=== PATIENT | female | born 1945 | race Caucasian/White ===

== ENCOUNTER 2021-02-07 13:08 | Outpatient (CLI) | payer MEDICARE, SELFPAY ==
--- NOTE | ~2021-02-07 | XR_ITS ---
EXAMINATION: XR lumbar spine 2-3V DATE: 02/07/2021 13:28 INDICATION: Low back pain. TECHNIQUE: 3 views of lumbar spine were obtained. COMPARISON: Lumbar spine radiographs 09/12/2015, CT abdomen and pelvis 04/05/2013 FINDINGS: There is 4 degrees dextrocurvature of lumbar spine. Vertebral body heights and intervertebr al disc heights are normal. There are endplate osteophytes at multiple levels. There is multilevel fa cet joint osteoarthritis, severe at some levels. IMPRESSION: 1. Mild lumbar spondylosis. Reviewed, dictated and finalized at location A. IMPRESSION: 1. Mild lumbar spondylosis.
== END 2021-02-07 13:09 | disposition home or self-care (01) ==
LOC: ANHIMG 13:11
PROVIDERS: PCP Internal Medicine; Visit Provider Internal Medicine
DX: M54.5 Low back pain (principal); G89.29 Other chronic pain; M47.816 Spondylosis without myelopathy or radiculopathy, lumbar region
CPT/HCPCS: 72100

== ENCOUNTER 2021-02-22 12:55 | Outpatient (CLI) | payer MEDICARE, SELFPAY ==
--- NOTE | ~2021-02-22 | MR_ITS ---
EXAMINATION: MR lumbar spine wo con EXAM DATE: 02/22/2021 14:03 INDICATION: M54.5 - Low back pain . TECHNIQUE: Multi-sequential, multiplanar MR images of the lumbar spine were obtained without contrast . Sagittal T1, T2, T2 fat saturation images. Axial T2 weighted images. There is no prior study for comparison. FINDINGS: The vertebral bodies are aligned in the AP dimension. Vertebral body and disc heights are w ell-maintained. Lumbar disc desiccation. There are no suspicious marrow signal abnormalities. Paraspi nal soft tissue is unremarkable. Level by level evaluation: T12-L1: Disc does not extend beyond the endplate margin. Facet arthropathy: Mild. Neural foraminal stenosis: No stenosis. Central canal stenosis: No stenosis. L1-L2: Disc does not extend beyond the endplate margin. Facet arthropathy: Mild. Neural foraminal stenosis: No stenosis. Central canal stenosis: No stenosis. L2-L3: Disc does not extend beyond the endplate margin. Facet arthropathy: Mild. Neural foraminal stenosis: No stenosis. Central canal stenosis: No stenosis. L3-L4: There is a mild diffuse disc bulge. Facet arthropathy: Moderate bilateral. Neural foraminal stenosis: Mild bilateral. Central canal stenosis: Mild. L4-L5: There is a mild diffuse disc bulge. Facet arthropathy: Moderate. Neural foraminal stenosis: Mild left, minimal right. Central canal stenosis: Minimal. L5-S1: There is a mild diffuse disc bulge with superimposed tiny right central protrusion Facet arthropathy: Mild to moderate. Neural foraminal stenosis: Mild to moderate left, mild right. Central canal stenosis: Mild. IMPRESSION: 1. Moderate facet arthropathy L3-4 and L4-5. Reviewed, dictated and finalized at location B.
== END 2021-02-22 12:56 | disposition home or self-care (01) ==
LOC: ANHIMG 12:56
PROVIDERS: PCP Internal Medicine; Visit Provider Internal Medicine
DX: M47.815 Spondylosis without myelopathy or radiculopathy, thoracolumbar region (principal); M48.05 Spinal stenosis, thoracolumbar region; M47.817 Spondylosis without myelopathy or radiculopathy, lumbosacral region; M48.07 Spinal stenosis, lumbosacral region
CPT/HCPCS: 72148

== ENCOUNTER 2021-10-28 00:36 | Day surgery (SDC) | payer MEDICARE, SELFPAY ==
[2021-10-16 13:51] VITALS: BMI 27.3
--- NOTE | 2021-10-28 12:52 | PM.HPGS ---
History of Present Illness History of Present Illness Consent: Risks, benefits, and alternatives have been discussed and questions answered. Patient agrees to proceed with procedure. Chief complaint: hx of colon polyps Narrative: Dee Gibson is a 75 year old female here for screening colonoscopy, last one 2015, mother had colon cancer Review of Systems Constitutional: Constitutional: Denies headache(s) and Denies weakness Eyes: Eyes: Denies blurry vision ENT: Reports Normal hearing present, Denies headache(s) and Denies neck pain Cardiovascular: Cardiovascular: Denies chest pain and Denies dyspnea Respiratory: Respiratory: Denies dyspnea Gastrointestinal: Gastrointestinal: Reports no additional gastrointestinal complaints Genitourinary: Genitourinary: Denies dysuria Musculoskeletal: Musculoskeletal: Denies neck pain Integumentary/Breasts: Skin/Breast: Denies dry skin Neurologic: Reports Normal hearing present, Denies headache(s) and Denies weakness Psychiatric: Psychiatric: Denies anxiety Endocrine: Endocrine: Denies change in body appearance Hematologic/Lymphatic: Hematologic/Lymphatic: Denies easy bleeding Allergic/Immunologic: Allergic/Immunologic: Denies urticaria PMFSH Past Medical History Medical History Screening for breast cancer Family History Family History Sibling Family history of respiratory disorder Father Family history of lung cancer Family history of emphysema Family history of coronary artery disease Mother Family history of lung cancer Other Family history of heart disease in male family member before age 55 Family history of lung disease Family history of malignant neoplasm Social History Social History Smoking status: Never smoker Second hand tobacco smoke exposure: Yes Alcohol intake: never Alcohol use details: once every 3-4 years Substance use: never Substance use type: does not use Living arrangements: with family Spiritual care concerns: No Meds Home Medications and Allergies Home Medications Medication Instructions Recorded Confirmed Type insulin lispro 100 unit/mL 1 sliding scale dose SUB-Q 10/13/19 10/16/21 History subcutaneous solution USEASDIRECTD omeprazole 20 mg capsule,delayed 20 mg PO .COMPLEX 10/13/19 10/16/21 History release Lactobacills gasseri-Bifidobac 1 cap PO DAILY cap 07/26/20 10/16/21 History bifidum,longum 1.5 billion cell capsule famotidine 20 mg tablet 20 mg PO BID tablet 07/26/20 10/16/21 History metoclopramide HCl 10 mg tablet 10 mg PO .COMPLEX PRN #270 tablet 01/29/21 10/16/21 Rx cholecalciferol (vitamin D3) 50 100 mcg PO DAILY #90 tablet 01/31/21 10/16/21 Rx mcg (2,000 unit) tablet Allergies Allergy/AdvReac Type Severity Reaction Status Date / Time vancomycin Allergy Unknown Hypertensio Verified 10/16/21 13:47 n Exam Const: General: comfortable and no acute distress HENMT: General nose exam: Normal nares present Eyes: General: appearance normal, both eyes and all related structures Neck: Neck: no JVD Resp: Auscultation: clear to auscultation bilaterally Cardio: Rate: regular rate Rhythm: regular rhythm GI: Inspection: non-distended GI Palp: Yes Soft to palpation Skin: General skin exam: normal color Neuro: General: gait normal Speech: normal speech Extrem: General: normal to inspection Psych: Mental Status: mental status grossly normal Assessment and Plan Assessment and plan (1) Screening for colon cancer: Code(s): Z12.11 - Encounter for screening for malignant neoplasm of colon Status: Acute Assessment and Plan: colonoscopy
[2021-10-28 12:59] VITALS: BP 87/32; PULSE 73; RESP 20; TEMP 36.4; O2SAT 98
[2021-10-28] MEDS: LACTATED RINGERS 1,000 ML 150 ML IV CONT (13:08)
--- NOTE | 2021-10-28 13:11 | P.PNAN_ITS ---
Anes - Initial Pre Proc Eval Procedure: Operation Date: 10/28/21 14:00 Proposed Procedures p Screening Colonoscopy - Eleazar Chambers MD Date/Time: 10/28/21 13:11 Surgeon: Eleazar Chambers MD Pre Op Diagnosis: hx of colon polyps Patient Data Age: 75 Gender: F Height: 1.6 m Weight: 70.3 kg Last Vital Signs Temp 97.5 F L 10/28/21 12:59 Pulse 73 10/28/21 12:59 Resp 20 10/28/21 12:59 BP 87/32 L 10/28/21 12:59 Pulse Ox 98 10/28/21 12:59 Allergies Allergy/AdvReac Type Severity Reaction Status Date / Time vancomycin Allergy Unknown Hypertensio Verified 10/28/21 12:56 n Home Medications Medication Instructions Recorded Confirmed Type insulin lispro 100 unit/mL 1 sliding scale dose SUB-Q 10/13/19 10/28/21 History subcutaneous solution USEASDIRECTD omeprazole 20 mg capsule,delayed 20 mg PO .COMPLEX 10/13/19 10/28/21 History release Lactobacills gasseri-Bifidobac 1 cap PO DAILY cap 07/26/20 10/28/21 History bifidum,longum 1.5 billion cell capsule famotidine 20 mg tablet 20 mg PO BID tablet 07/26/20 10/28/21 History metoclopramide HCl 10 mg tablet 10 mg PO .COMPLEX PRN #270 tablet 01/29/21 10/28/21 Rx cholecalciferol (vitamin D3) 50 100 mcg PO DAILY #90 tablet 01/31/21 10/28/21 Rx mcg (2,000 unit) tablet Patient hx anesthesia problems: none Family hx anesthesia problems: none Results Review: All pre-operative results and documents have been reviewed as part of the pre-operative evaluation. [facility] Past Medical History Medical History Screening for breast cancer Family History Family History Sibling Family history of respiratory disorder Father Family history of lung cancer Family history of emphysema Family history of coronary artery disease Mother Family history of lung cancer Other Family history of heart disease in male family member before age 55 Family history of lung disease Family history of malignant neoplasm Social History Social History Smoking status: Never smoker Second hand tobacco smoke exposure: Yes Alcohol intake: never Alcohol use details: once every 3-4 years Substance use: never Substance use type: does not use Living arrangements: with family Spiritual care concerns: No Anes - Eval Final PreProcedure Day of Procedure 10/28/21 13:11 Patient weight: normal Heart: regular rate and rhythm Lungs: clear to auscultation Airway: Mallampati scale class II Neurological: alert and oriented Last oral intake: >/= 8 hours ASA classification: III Emergent: no Anesthetic plan: proceed Anesthesia type and monitoring: general GIVS and standard monitoring Results Review: All pre-operative results and documents have been reviewed as part of the pre-operative evaluation. Informed Consent: The patient's anesthetic plan and its attendant risks and benefits were discussed with the patient/family/POA. Questions were solicited and answers provided to the satisfaction of the patient/family/POA.
[2021-10-28 13:41] VITALS: BP 120/97; PULSE 66; RESP 20; O2SAT 97
[2021-10-28 13:51] VITALS: BP 112/41; PULSE 64; RESP 18; O2SAT 98
[2021-10-28 14:01] VITALS: BP 120/40; PULSE 64; RESP 20; O2SAT 98
--- NOTE | 2021-10-28 14:21 | SUR.PHASEII ---
PT HAS IMPLANTED GLUCOMETER, READING 267 AT THIS TIME. NO FINGER STICK COMPLETED.
== END 2021-10-28 14:24 | disposition home or self-care (01) ==
PROVIDERS: PCP Internal Medicine; Visit Provider Internal Medicine Gastroenterology
PROC: 0DJD8ZZ Inspection of Lower Intestinal Tract, Via Natural or Artificial Opening Endoscopic (ICD-10-PCS; CPT 45378; principal; 2021-10-28 14:00)
DX: Z12.11 Encounter for screening for malignant neoplasm of colon (principal); D12.2 Benign neoplasm of ascending colon; D12.3 Benign neoplasm of transverse colon; Z79.4 Long term (current) use of insulin
CPT/HCPCS: 45385; 88305; J2704; J7120

== ENCOUNTER 2022-01-21 15:00 | Outpatient (CLI) | payer MEDICARE, SELFPAY ==
--- NOTE | ~2022-01-21 | US_ITS ---
EXAMINATION: US soft tissue pelvic DATE: 01/21/2022 15:30 INDICATION: TECHNIQUE: Grayscale and Doppler ultrasound images of the pelvic soft tissues were obtained. COMPARISON: None. FINDINGS: Heterogeneous, somewhat triangular-shaped predominantly hypoechoic subcutaneous lesion in t he area of concern (left labia) with irregular margins, measuring 0.8 x 1.1 x 1.3 cm. There is mild s urrounding peripheral flow. IMPRESSION: 1. Hypoechoic subcutaneous lesion in the left labia, may reflect phlegmon or abscess in the appropri ate clinical context. Reviewed, dictated and finalized at location K. IMPRESSION: 1. Hypoechoic subcutaneous lesion in the left labia, may reflect phlegmon or a bscess in the appropriate clinical context.
== END 2022-01-21 15:01 | disposition home or self-care (01) ==
PROVIDERS: PCP Internal Medicine; Visit Provider Obstetrics & Gynecology
DX: N76.4 Abscess of vulva (principal)
CPT/HCPCS: 76857

== ENCOUNTER 2022-02-24 15:51 | Inpatient (IN) | payer MEDICARE, SELFPAY ==
--- NOTE | ~2022-02-24 | US_ITS ---
EXAMINATION: US carotid duplex BI DATE: 02/25/2022 09:52 INDICATION: Syncope. TECHNIQUE: Grayscale, color Doppler, and pulsed Doppler images of the cervical carotid arteries were obtained. The degree of vessel stenosis is placed in one of the following categories: normal, <50%, 5 0-69%, >=70% but less than near-occlusion, near-occlusion, or total occlusion. Note that percent sten osis relative to normal distal artery lumen diameter is indirectly measured from velocity measurement s as described by Warren, et al. Radiology 2003; 229:340-346. COMPARISON: Ultrasound 09/05/2009 FINDINGS: RIGHT: The right common carotid artery (CCA) peak systolic velocity (PSV) is 99 cm/s. The right internal car otid artery (ICA) PSV is 80 cm/s. The right ICA end-diastolic velocity (EDV) is 9 cm/s. The right ICA /CCA PSV ratio is 0.8. Grayscale and color Doppler images yield an estimate of <50% diameter reductio n from plaque in the ICA. There is antegrade flow in the right vertebral artery. LEFT: The left CCA PSV is 89 cm/s. The left ICA PSV is 85 cm/s. The left ICA EDV is 18 cm/s. The left ICA/C CA PSV ratio is 1.0. Grayscale and color Doppler images yield an estimate of <50% diameter reduction from plaque in the ICA. There is antegrade flow in the left vertebral artery. IMPRESSION: 1. <50% stenosis in the right internal carotid artery. 2. <50% stenosis in the left internal carotid artery. Reviewed, dictated and finalized at location A.
--- NOTE | ~2022-02-24 | XR_ITS ---
EXAMINATION: XR foot RT min 3V DATE: 02/26/2022 08:58 INDICATION: Lateral right foot swelling. TECHNIQUE: 5 views of right foot were obtained. COMPARISON: Right foot radiographs 02/23/2016 FINDINGS: There is dorsiflexion of the metatarsophalangeal joints and flexion of the interphalangeal joints. No acute fracture. There are changes of fusion of tibia, talus, and calcaneus with multiple s crews. 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 There is mild osteoarthrit is of first metatarsophalangeal joint and many of the interphalangeal joints and midfoot joints. Ther e is an enthesophyte at plantar aspect of calcaneal tuberosity. IMPRESSION: 1. Mild polyarticular osteoarthritis. 2. Arthrodesis involving tibia, talus, and calcaneus. Reviewed, dictated and finalized at location A.
--- NOTE | ~2022-02-24 | MR_ITS ---
EXAMINATION: MR brain/brain stem wo/w con EXAMINATION: MR brain/brain stem wo/w con DATE: 02/25/2022 16:17 INDICATION: Syncopal episode TECHNIQUE: Magnetic resonance imaging (MRI) of the brain and brainstem was performed without intraven ous contrast. Sequences included sagittal and axial T1-weighted SE, axial diffusion-weighted FS EPI A SSET, axial T2*-weighted GRE, axial T2-weighted FLAIR Propeller, and axial T2-weighted Propeller. Pos tcontrast axial and coronal T1-weighted SE was obtained. Apparent diffusion coefficient (ADC) maps we re created. COMPARISON: 04/07/2013. FINDINGS: No abnormal restricted diffusion to suggest acute ischemic infarct. No MRI evidence of hemorrhage or extra-axial collection. No suspicious foci of susceptibility to suggest prior intraparenchymal hemorr abner. Minimal scattered focal white matter hyperintensities likely representing chronic white matter disease. No evidence of advanced or lobar predominant parenchymal volume loss. Ventricles are proport ional to brain volume. Flow voids are preserved. Basilar cisterns are patent. Mild right maxillary si nus coastal thickening. Bilateral lens replacements. IMPRESSION: 1. No acute intracranial abnormality. Reviewed, dictated and finalized at location K.
[2022-02-24 15:55] VITALS: BP 93/53; PULSE 75; RESP 14; TEMP 36.7; O2SAT 97
--- NOTE | 2022-02-24 16:04 | ECG_ITS ---
Measurements Intervals [place] Rate: 78 P: 18 [place]: 160 QRS: 66 QRSD: 84 T: 56 QT: 364 QTc: 417 Interpretive Statements SINUS RHYTHM NORMAL ECG ILABLE FOR COMPARISON Electronically Signed On 02-24-2022 16:45:51 CDT by Finesse Garcia M.D.
[2022-02-24 16:18] LABS: Basophils Absolute Auto 0.1 K/mm3 (0.0-0.1); Basophils Percent Auto 0.8 % (0.2-1.2); Eosinophils Absolute Auto 0.2 K/mm3 (0-0.3); Eosinophils Percent Auto 1.7 % (0-4.4); Hematocrit 42.1 % (37.0-47.0); Hemoglobin 13.6 g/dL (12.0-15.0); Immature Granulocyte Absolute 0.02 K/mm3 (0.00-0.031); Immature Granulocyte Percent A 0.2 % (0-0.5); Lymphocytes Absolute Auto 1.28 K/mm3 (0.9-3.2); Lymphocytes Percent Auto 14.2 % (18.3-44.2); Mean Corpuscular HGB Conc 32.3 g/dl (32-36); Mean Corpuscular Volume 89.8 fl (80-100); Monocytes Absolute Auto 0.6 K/mm3 (0.1-0.6); Monocytes Percent Auto 6.9 % (2.6-8.5); Neutrophils Absolute Auto 6.9 K/mm3 (1.3-6.7); Neutrophils Percent Auto 76.2 % (45.5-73.1); Platelet Count Result 258 k/mm3 (150-375); Red Blood Count 4.69 M/mm3 (4.2-5.4); Red Cell Distribution Width 14.2 % (11.5-14.5)
[2022-02-24 16:34] LABS: Alanine Aminotransferase 13 U/L (6-35); Albumin Level 3.6 g/dL (3.5-5.1); Alkaline Phosphatase 87 U/L (38-126); Aspartate Amino Transferase 17 U/L (14-36); Bilirubin,Total 0.8 mg/dL (0.2-1.3); Blood Urea Nitrogen 38 mg/dL (7-17); Calcium 9.3 mg/dL (8.4-10.2); Carbon Dioxide 21 mmol/L (22-30); Chloride 103 mmol/L (98-107); Estimated CRCL calculation 25 ml/min; Estimated Glomerular Filt Rate 29; Glucose 268 mg/dL (65-110); Potassium 4.9 mmol/L (3.4-5.0)
[2022-02-24 16:43] LABS: Anion Gap 10 mmol/L (8-16); Sodium 134 mmol/L (137-145)
[2022-02-24 18:56] LABS: Add Urine Microscopic? YES; Appearance Urine Clear (Clear); Bilirubin Urine 1+ (Negative); Blood Urine Negative (Negative); Color Urine Yellow (Yellow); Glucose Urine UA Negative (Negative); Ketones Urine Trace mg/dL (Negative); Leukocyte Esterase Ur Negative LEU/UL (Negative); Nitrate Urine Negative (Negative); Protein Urine Negative (Negative); Specific Grav Ur >= 1.030 (1.001-1.035); Urobilinogen Urine 0.2 mg/dL (<2.0); pH Urine 5.5 (5.0-9.0)
[2022-02-24 19:08] LABS: Bacteria Urine Trace /hpf; Calcium Oxalate Crystals Urine Present /hpf; Mucus Urine Moderate /lpf; Squamous Epithelial Cell Urine Many /hpf (Few)
[2022-02-24 20:21] VITALS: BP 93/47; PULSE 74; RESP 18; TEMP 36.3; O2SAT 96
[2022-02-24 23:25] VITALS: BP 107/66; BP 142/95; PULSE 70; PULSE 72
[2022-02-24 23:29] VITALS: BP 97/55; PULSE 76
[2022-02-24 23:31] VITALS: PULSE 78; RESP 17; O2SAT 100
--- NOTE | 2022-02-24 23:41 | ED.SYNCOPE ---
HPI - Syncope General Chief Complaint: Syncope Stated Complaint: syncope, low bp Time Seen by Provider: 02/24/22 23:12 History of Present Illness HPI narrative: This is a 76-year-old female, with past medical history of type 1 diabetes, IBS, who presents the emergency department after a syncopal episode. She states earlier this evening she was on the phone with her daughter, when she suddenly lost consciousness without warning. She denies preceding chest pain, palpitations, shortness of breath. She denies similar symptoms thereafter. She states she struck her right hand, right knee and believes she struck her head, but does not have any weakness or numbness, or significant pain. She states she is otherwise been in her normal health. She has had several episodes similar to this in the past, attributed to low blood sugar. Her blood sugars have recently been running in the 170s Related Data Home Medications Medication Instructions Recorded Confirmed insulin lispro 100 unit/mL 1 sliding scale dose subcut 10/13/19 02/25/22 subcutaneous solution (Humalog USEASDIRECTD U-100 Insulin) omeprazole 20 mg capsule,delayed 20 mg PO DAILY 10/13/19 02/25/22 release Lactobacills gasseri-Bifidobac 1 cap PO DAILY 07/26/20 02/25/22 bifidum,longum 1.5 billion cell capsule ([email or web address]) famotidine 20 mg tablet 20 mg PO BID 07/26/20 02/25/22 Allergies Allergy/AdvReac Type Severity Reaction Status Date / Time vancomycin Allergy Unknown Hypertensio Verified 01/08/22 14:41 n Review of Systems Review of Systems: CONSTITUTIONAL: Denies fever, chills, or sweats. EYES: Denies visual changes, redness, or discharge. ENT: Denies rhinorrhea, congestion, sore throat, or otalgia. CARDIOVASCULAR: Denies chest pain, palpitations, or edema. RESPIRATORY: Denies cough or dyspnea. GASTROINTESTINAL: Denies abdominal pain, nausea, vomiting, or diarrhea. GENITOURINARY: Denies dysuria or hematuria. SKIN: Denies rash or itching. MUSCULOSKELETAL: Denies back pain, joint pain, or myalgia. NEUROLOGIC: Denies headache, numbness, dizziness, or weakness. PSYCHIATRIC: Denies anxiety or depression. [facility] Past Medical History Medical History (Updated 02/25/22 @ 08:02 by Aric Flores MD) Screening for breast cancer Surgical History Surgical History H/O hysterectomy with unilateral oophorectomy History of cholecystectomy History of orthopedic surgery ankle fusion and screws placed and removed -nm Family History Family History Sibling Family history of respiratory disorder Father Family history of lung cancer Family history of emphysema Family history of coronary artery disease Mother Family history of lung cancer Other Family history of heart disease in male family member before age 55 Family history of lung disease Family history of malignant neoplasm Social History Social History Smoking status: Never smoker Second hand tobacco smoke exposure: Yes Alcohol intake: never Alcohol use details: once every 3-4 years Substance use: never Substance use type: does not use Spiritual care concerns: No Exam Narrative: GENERAL: Well-appearing, well-nourished, and in no acute distress. HEAD: Normocephalic, atraumatic. EYES: PERRLA and EOMI. ENT: Nares clear, no rhinorrhea or epistaxis. Mucous membranes moist. Oropharynx without tonsillar hypertrophy exudate or other lesions. NECK: Supple. No adenopathy or masses. No carotid bruits or JVD CHEST: Clear to auscultation. No respiratory distress. No wheezes rales or rhonchi HEART: Regular rate and rhythm. No murmur heard. Normal peripheral pulses. ABDOMEN: Soft, nontender, nondistended, normal active bowel sounds. EXTREMITIES: Small area of ecchymosis over the anterior aspect of the right patella, r
[2022-02-25] VITALS (11 sets, daily range): BP systolic 105–133; BP diastolic 37–73; PULSE 68–82; RESP 14–20; TEMP 35.9–36.9; O2SAT 93–99
--- NOTE | 2022-02-25 | ECHO_ITS ---
Patient Info Name: Dee Gibson Age: 76 years : 1945 Gender: Female Ht: 63 in Wt: 159 lbs BSA: 1.81 m2 HR: 71 bpm BP: 128 / 56 mmHg Heart Rhythm: Sinus Rhythm Technical Quality: Fair Exam Date: 02/25/2022 10:12 AM Exam Location: [facility] Patient Status: Outpatient Admit Date: 02/25/2022 Staff Ordering Physician: Merced Shetty MD Life Agent: Katina Suarez RDCS Attending Provider: Apoorva Mast Referring Physician: Diogenes ALLRED; Exam Type: CA echo dop color flow w con Study Info Indications R55 - Syncope and collapse Complete two-dimensional, color flow and Doppler transthoracic echocardiogram is performed with contrast to opacify the left ventricle and to improve the deliniation of the left ventricle endocardial borders. Contrast/Agitated Saline Contrast/Ag. Saline: Definity Amount: 3.00 ml Administered By: Katina Suarez RDCS Existing IV Access: Yes IV Access Condition: patent with no signs of infiltration Summary 1. Left ventricular chamber dimension is normal. 2. Definity contrast administered improved wall motion interpretation. 3. Left ventricular systolic function is normal, estimated at 65-70%. 4. The left ventricular diastolic function is grade I diastolic dysfunction. 5. E/e' 11 is mildly elevated. 6. There is mild aortic valve regurgitation. 7. No pulmonary hypertension, estimated pulmonary arterial systolic pressure is 22 mmHg. 8. There is trace pulmonic regurgitation. Left Ventricle E/e' 11 is mildly elevated. Definity contrast administered improved wall motion interpretation. Left ventricular chamber dimension is normal. Left ventricular systolic function is normal, estimated at 65-70%. The left ventricular diastolic function is grade I diastolic dysfunction. Right Ventricle Right ventricular systolic function is normal and with normal TAPSE 2.0 cm. Right ventricular chamber dimension is normal. Left Atria Left atrial chamber dimension is normal. Right Atria Right atrial chamber dimension is normal. Aortic Valve The aortic valve is trileaflet. There is no aortic valve stenosis. There is mild aortic valve regurgitation. Pulmonic Valve There is trace pulmonic regurgitation. Mitral Valve There is no mitral valve stenosis. There is no mitral valve regurgitation. Tricuspid Valve There is no tricuspid valve regurgitation. No pulmonary hypertension, estimated pulmonary arterial systolic pressure is 22 mmHg. Pericardium/Pleural There is no pericardial effusion. Inferior Vena Cava Normal inferior vena cava with >50% collapse upon inspiration consistent with normal right atrial pressure, 5 mmHg. Aorta The aortic root size at the sinus of Valsalva is normal. Left Ventricular Outflow Tract Name Value Normal LVOT 2D LVOT Diameter 1.98 cm LVOT Doppler LVOT Peak Gradient 6 mmHg LVOT Mean Gradient 3 mmHg LVOT VTI 25.55 cm LVOT VTI/AV VTI Ratio 0.87
[2022-02-25] MEDS: LACTATED RINGERS 1,000 ML 999 ML IV CONT (00:22)
--- NOTE | 2022-02-25 00:38 | PM.IMHP ---
H&P: HPI History of Present Illness Date/Time: 02/25/22 00:38 Chief Complaint: Syncope Narrative: This is a 76-year-old female with past medical history significant for type 1 diabetes mellitus. Patient presents to the emergency room after having a syncopal episode with no aura, no warnings, patient has been in her usual state of health, has had syncopal episodes in the past, patient denies any nausea, vomiting, diarrhea, abdominal pain, chest pain, shortness of breath, fevers, rigors, chills, leg swelling, calves pain. Patient had a spontaneous recovery of consciousness no incontinence of sphincters. Daughter brings her to the emergency room. Preliminary workup has been essentially nonrevealing although patient was orthostatic in the emergency room. Patient is been admitted for further evaluation management and treatment. Review of Systems Review of Systems: Syncope Constitutional: Constitutional: Denies body ache(s), Denies chills, Denies fatigue, Denies fever(s), Denies malaise, Denies night sweats, Denies poor appetite and Denies weakness Eyes: Eyes: Denies change in vision ENT: Denies dysphagia and Denies odynophagia Cardiovascular: Cardiovascular: Denies chest pain, Reports syncope, Reports lightheadedness, Denies palpitations and Denies dyspnea on exertion Respiratory: Respiratory: Denies chest congestion, Denies cough, Denies excessive phlegm production and Denies dyspnea Gastrointestinal: Gastrointestinal: Denies abdominal pain, Denies dyspepsia, Denies heartburn, Denies diarrhea, Denies nausea and Denies vomiting Genitourinary: Genitourinary: Denies dysuria Musculoskeletal: Musculoskeletal: Denies myalgias, Denies joint swelling and Denies muscle weakness Integumentary/Breasts: Skin/Breast: Denies rash Neurologic: Denies focal weakness, Denies numbness and Denies Sensory deficit (Neuro) Endocrine: Endocrine: Denies cold intolerance, Denies fatigue, Denies flushing, Denies heat intolerance, Denies polyphagia, Denies polydipsia and Denies palpitations Hematologic/Lymphatic: Hematologic/Lymphatic: Reports no additional hematologic/lymphatic complaints and Reports as per HPI Allergic/Immunologic: Allergic/Immunologic: Reports no additional allergic/immunologic complaints and Reports as per HPI PMF Past Medical History Medical History (Updated 02/25/22 @ 03:45 by Merced Shetty MD) Screening for breast cancer Surgical History Surgical History H/O hysterectomy with unilateral oophorectomy History of cholecystectomy History of orthopedic surgery ankle fusion and screws placed and removed -nm Family History Family History Sibling Family history of respiratory disorder Father Family history of lung cancer Family history of emphysema Family history of coronary artery disease Mother Family history of lung cancer Other Family history of heart disease in male family member before age 55 Family history of lung disease Family history of malignant neoplasm Social History Social History Smoking status: Never smoker Second hand tobacco smoke exposure: Yes Alcohol intake: never Alcohol use details: once every 3-4 years Substance use: never Substance use type: does not use Spiritual care concerns: No Meds Home Medications and Allergies Home Medications Medication Instructions Recorded Confirmed Type insulin lispro 100 unit/mL 1 sliding scale dose subcut 10/13/19 02/25/22 History subcutaneous solution (Humalog USEASDIRECTD U-100 Insulin) omeprazole 20 mg capsule,delayed 20 mg PO DAILY 10/13/19 02/25/22 History release Lactobacills gasseri-Bifidobac 1 cap PO DAILY 07/26/20 02/25/22 History bifidum,longum 1.5 billion cell capsule ([employer]) famotidine 20 mg tablet 20 mg PO BID
[2022-02-25 01:31] LABS: SARS-CoV-2 RNA PCR Negative
[2022-02-25 06:55] LABS: Glucose Point of Care 134 mg/dl (65-105)
[2022-02-25 08:02] LABS: Glucose Point of Care 79 mg/dl (65-105)
[2022-02-25] MEDS: FAMOTIDINE 20 MG TABLET PO ×2 (08:13→16:56)
[2022-02-25] MEDS: CHOLECALCIFEROL 1,000 UNITS TABLET 4000 UNITS PO (08:13)
[2022-02-25] MEDS: PANTOPRAZOLE 40 MG TABLET PO (08:14)
[2022-02-25] MEDS: METOCLOPRAMIDE HCL 10 MG TABLET PO (08:15)
[2022-02-25 09:17] LABS: Glucose Point of Care 146 mg/dl (65-105)
[2022-02-25] MEDS: PERFLUTREN LIPID MICROSPHERES 1.5 ML VIAL DILUTED TO 10 ML TOTAL VOLUME IV PUSH (10:45)
--- NOTE | 2022-02-25 10:45 | IVDEFINITY ---
Prior to administration of IV Definity the patient was educated on the risks and benefits of the imaging enhancing agent including potential adverse side effects. The patient verbalized understanding. Allergies were verified. No exclusion criteria were identified and at least one of the following inclusion criteria were met: 1) physician request, 2) patient technically difficult to image (per the [employer] guidelines of two or more segments not discernable within the apical view), or 3) questionable left ventricular function. ?
[2022-02-25 11:40] LABS: Glucose Point of Care 160 mg/dl (65-105)
--- NOTE | 2022-02-25 13:16 | PM.IMPN ---
Progress Note: A&P Assessment and Plan (1) Syncope due to orthostatic hypotension: Code(s): I95.1 - Orthostatic hypotension Status: Acute Assessment and Plan: - carotid Doppler demonstrates bilateral ICAs with less than 50% occlusion. - MRI of brain pending. - Echocardiogram demonstrates normal left ventricular systolic function with ejection fraction of 60-65%, no pulmonary hypertension, no mitral valve regurgitation, there is trace aortic valve regurgitation and pulmonic valve regurgitation. Grade 1 diastolic dysfunction is present. - Patient reports that she is a type 1 diabetic who was diagnosed in her 30s. She has been a type 1 diabetic for greater than 40 years. Suspect that these neurological abnormalities and episodes of syncopal events is related to autonomic dysfunction secondary to long-term type 1 diabetes mellitus. - As patient was orthostatic on presentation to the emergency room, will order orthostatic vital signs to be checked Q shift. - Monitor daily labs and vital signs. (2) Chronic kidney disease, stage III (moderate): Code(s): N18.3 - Chronic kidney disease, stage 3 (moderate) Status: Acute Assessment and Plan: - Patient at baseline. - Monitor with daily labs. 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 Renal function is at baseline. - insulin pump protocol is initiated today. Patient may continue to bolus herself. - Patient also has CGM. - Continue Accu-Cheks AC and HS - continue diabetic diet (4) Gastro-esophageal reflux disease with esophagitis: Code(s): K21.0 - Gastro-esophageal reflux disease with esophagitis Status: Acute Assessment and Plan: - PPI therapy as needed (5) Short leg syndrome, right, acquired: Code(s): M21.70 - Unequal limb length (acquired), unspecified site Status: Acute Assessment and Plan: - fall precautions Time Spent With Patient Time with patient: Greater than 35 minutes Subjective Date/time seen: 02/25/22 1015 this patient was examined at the bedside in interval assessment today after she was admitted to the hospital last evening for syncopal episode. More information was obtained from the patient today and she indicates that she was at home, had gotten up out of bed to walk to the front door to look out to see if trash had been picked up as she was forced to throw a lot of items away after she had fallen in her home over the past week. She said she was on the phone speaking with her daughter while she was looking out the front door became suddenly dizzy and instantly woke up on the floor with a large thud. Patient endorses this is approximately the 7th time this has happened within the past 3-4 years. She has mentioned it to her primary care physician as well as to her professor of psychiatry that she sees for her type 1 diabetes management and may indicate that they believe patient has an autonomic dysfunction due to her longstanding type 1 diabetes mellitus. Patient does not believe that she hit her head last evening when she fell. She was brought to the emergency room and subsequently admitted to the hospital. Today she underwent testing of ultrasound of the carotid Dopplers that showed less than 50% occlusion bilaterally of the internal carotid arteries. She had an echocardiogram that demonstrated normal left ventricular systolic function with ejection fraction of 65-70%. There was also noted grade 1 diastolic dysfunction no mitral valve regurgitation but there was mild aortic valve and pulmonic valve regurgitation. MRI is still pending at this time. At the bedside I discussed with patient whether not her glucose dropped at the time she syncopized, and she indicates that her glucose at that time was actually high at 16
[2022-02-25] MEDS: LOPERAMIDE HCL 2 MG CAPSULE PO (15:43)
[2022-02-25 16:55] LABS: Glucose Point of Care 193 mg/dl (65-105)
[2022-02-25 20:57] LABS: Glucose Point of Care 194 mg/dl (65-105)
[2022-02-26] VITALS (14 sets, daily range): BP systolic 64–119; BP diastolic 39–54; PULSE 65–85; RESP 16–20; TEMP 36.1–36.8; O2SAT 93–96
--- NOTE | 2022-02-26 05:52 | PC.NURSE ---
patients daily for 02/25/22 total for basal insulin and bolus is 17.95. will not let me enter in decimal points into the insulin pump worklist order
[2022-02-26 06:54] LABS: Basophils Absolute Auto 0.1 K/mm3 (0.0-0.1); Basophils Percent Auto 0.8 % (0.2-1.2); Eosinophils Absolute Auto 0.2 K/mm3 (0-0.3); Eosinophils Percent Auto 1.8 % (0-4.4); Hematocrit 39.8 % (37.0-47.0); Hemoglobin 12.8 g/dL (12.0-15.0); Immature Granulocyte Absolute 0.03 K/mm3 (0.00-0.031); Immature Granulocyte Percent A 0.3 % (0-0.5); Lymphocytes Absolute Auto 1.51 K/mm3 (0.9-3.2); Lymphocytes Percent Auto 15.4 % (18.3-44.2); Mean Corpuscular HGB Conc 32.2 g/dl (32-36); Mean Corpuscular Hemoglobin 28.8 pg (26-34); Mean Corpuscular Volume 89.4 fl (80-100); Mean Platelet Volume 10.3 fl (7.4-10.4); Monocytes Percent Auto 9.9 % (2.6-8.5); Neutrophils Percent Auto 71.8 % (45.5-73.1); Platelet Count Result 219 k/mm3 (150-375); Red Blood Count 4.45 M/mm3 (4.2-5.4); Red Cell Distribution Width 13.9 % (11.5-14.5); White Blood Count 9.8 K/mm3 (4.5-10.0)
--- NOTE | 2022-02-26 07:23 | PM.DS ---
DS: Admitting Diagnosis Discharge Date 02/26/2022 Admitting Diagnosis Syncope secondary to orthostatic hypotension, CKD3, Diabetic Nephropathy, GERD w/esophagitis, Short leg syndrome right leg, DS: Discharge Diagnosis Discharge Diagnosis (1) Syncope due to orthostatic hypotension: Code(s): I95.1 - Orthostatic hypotension Status: Acute Assessment and Plan: - carotid Doppler demonstrates bilateral ICAs with less than 50% occlusion. - MRI of brain normal. - Echocardiogram demonstrates normal left ventricular systolic function with ejection fraction of 60-65%, no pulmonary hypertension, no mitral valve regurgitation, there is trace aortic valve regurgitation and pulmonic valve regurgitation. Grade 1 diastolic dysfunction is present. - Patient reports that she is a type 1 diabetic who was diagnosed in her 30s. She has been a type 1 diabetic for greater than 40 years. Suspect that these neurological abnormalities and episodes of syncopal events is related to autonomic dysfunction secondary to long-term type 1 diabetes mellitus. - As patient was orthostatic on presentation to the emergency room, but is no longer orthostatic. - Monitor daily labs and vital signs. - I did speak with Cardiology yesterday and they agree that the pt. would be a good candidate for a holter monitor to be placed as an outpatient, but suspicion that the reason for the patients episodes of syncope is actually an Autonomic dysfunction secondary to her Chronic T1D. - VSS, she is stable for discharge today with routine follow up. (2) Chronic kidney disease, stage III (moderate): Code(s): N18.3 - Chronic kidney disease, stage 3 (moderate) Status: Acute Assessment and Plan: - Patient improved above baseline. - Monitor with daily labs. 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 Renal function is at baseline. - insulin pump protocol is initiated today. Patient may continue to bolus herself. - Patient also has CGM. - Continue Accu-Cheks AC and HS - continue diabetic diet (4) Gastro-esophageal reflux disease with esophagitis: Code(s): K21.0 - Gastro-esophageal reflux disease with esophagitis Status: Acute Assessment and Plan: - PPI therapy as needed (5) Short leg syndrome, right, acquired: Code(s): M21.70 - Unequal limb length (acquired), unspecified site Status: Acute Assessment and Plan: - fall precautions DS: Summary Hospital Course Reason for hospitalization: Syncopal Episode Hospital Course: t This patient with significant PMH of T1D, was admitted to the hospital on 02/25/22 after she sustained a syncopal episode without aura, warnings or any clue that it was going to occur.? More information was obtained from the patient yesterday and she indicates that she was at home, had gotten up out of bed to walk to the front door to look out to see if trash had been picked up as she? was forced to throw a lot of items away after she had fallen in her home over the past week.? She said she was on the phone speaking with her daughter while she was looking out the front door became suddenly dizzy and instantly woke up on the floor with a large thud.? Patient endorses this is approximately the 7th time this has happened within the past 3-4 years.? She has mentioned it to her primary care physician as well as to her forging dies final finisher that she sees for her type 1 diabetes management and may indicate that they believe patient has an autonomic dysfunction due to her longstanding type 1 diabetes mellitus.? Patient does not believe that she hit her head when she fell.? She was brought to the emergency room and subsequently admitted to the hospital.? She underwent testing consisting of ultrasound of the carotid Dopplers that showe
[2022-02-26 07:26] LABS: Alanine Aminotransferase 12 U/L (6-35); Albumin Level 3.4 g/dL (3.5-5.1); Alkaline Phosphatase 85 U/L (38-126); Anion Gap 7 mmol/L (8-16); Aspartate Amino Transferase 18 U/L (14-36); Bilirubin,Total 0.9 mg/dL (0.2-1.3); Blood Urea Nitrogen 24 mg/dL (7-17); Calcium 8.6 mg/dL (8.4-10.2); Carbon Dioxide 26 mmol/L (22-30); Chloride 102 mmol/L (98-107); Estimated CRCL calculation 32 ml/min; Estimated Glomerular Filt Rate 40; Glucose 243 mg/dL (65-110); Magnesium 1.6 mg/dL (1.6-2.3); Potassium 4.8 mmol/L (3.4-5.0); Sodium 135 mmol/L (137-145)
[2022-02-26 07:40] LABS: Glucose Point of Care 269 mg/dl (65-105)
[2022-02-26] MEDS: PANTOPRAZOLE 40 MG TABLET PO (08:20)
[2022-02-26] MEDS: FAMOTIDINE 20 MG TABLET PO ×2 (08:20→17:16)
[2022-02-26] MEDS: METOCLOPRAMIDE HCL 10 MG TABLET PO (08:21)
[2022-02-26] MEDS: CHOLECALCIFEROL 1,000 UNITS TABLET 4000 UNITS PO (08:21)
[2022-02-26] MEDS: MIDODRINE HCL 2.5 MG TABLET 5 MG PO ×2 (09:34→17:16)
[2022-02-26 11:24] LABS: Glucose Point of Care 148 mg/dl (65-105)
--- NOTE | 2022-02-26 12:34 | PM.IMPN ---
Progress Note: A&P Assessment and Plan (1) Syncope due to orthostatic hypotension: Code(s): I95.1 - Orthostatic hypotension Status: Acute Assessment and Plan: - Suspicion secondary to Autonomic dysfunction due to assisted T1D. - BP dropped to 64/39 standing with check of Orthostatic vitals. - Start Midodrine at a conservative dose of 5 mg po BID. - Continue to check Orthostats. - Fall precautions. - Reminder to rise and change positions slowly. (2) Chronic kidney disease, stage III (moderate): Code(s): N18.3 - Chronic kidney disease, stage 3 (moderate) Status: Chronic Assessment and Plan: - Renal function is at baseline with Creatinine of 1.3 and BUN of 24. 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 may continue to dose with her own insulin pump. - Continue Hypoglycemic protocol. - Continue Glucose checks AC and HS. (4) Gastro-esophageal reflux disease with esophagitis: Code(s): K21.0 - Gastro-esophageal reflux disease with esophagitis Status: Chronic Assessment and Plan: - Continue PPI therapy. (5) Short leg syndrome, right, acquired: Code(s): M21.70 - Unequal limb length (acquired), unspecified site Status: Chronic Assessment and Plan: - Chronic. (6) Contusion of foot, right: Code(s): S90.31XA - Contusion of right foot, initial encounter Status: Acute Assessment and Plan: - Imaging of right foot is negative for any acute fracture. - Will consult PT for evaluation. Time Spent With Patient Time with patient: 25 - 35 minutes Subjective Date/time seen: 02/26/22 0850 This pt. was examined at the bedside today in interval assessment. She has Orthostatic VS with standing BP this AM of 69/34. She was symptomatic with this finding endorsing she was dizzy with changing positions. In addition, she reports that her right foot this morning appears bruised around the toes and she has swelling and pain that was not there previously since the fall. Imaging was performed and there was no fracture. She is being started on Midodrine today low dose at 5 mg BID and we will continue to monitor her symptoms. She reports she tried Midodrine once before in the past and her BP then became too elevated. As a result, it was discontinued. I am therefore restarting the Midodrine at a low dose and will re-evaluate and monitor her symptoms of dizziness and her BP readings. The pt. understands this course of action. She denies any CP, Dyspnea, N/V/D or urinary complaints at this time. Review of Systems Review of Systems: All systems reviewed & are unremarkable except as noted in HPI and below Exam Const: General: comfortable and no acute distress Other: + Reports dizziness. HENMT: Ears: TM's normal bilaterally General nose exam: Normal nares present and no epistaxis Mouth: Yes moist mucous membranes Eyes: General: appearance normal, both eyes and all related structures Sclera: sclerae normal Pupils: Equal, round and reactive pupils present EOM: EOMs intact bilaterally Neck: Neck: supple and no JVD Resp: Effort & Inspection: normal respiratory effort Auscultation: clear to auscultation bilaterally Cardio: Rate: regular rate Rhythm: regular rhythm Heart sounds: no gallops, no murmurs and no rubs GI: Inspection: non-distended GI Palp: Yes Soft to palpation, No Tenderness to palpation present (GI) and No Guarding due to palpation present (GI) Auscultation: normal bowel sounds Skin: General skin exam: No normal color (Ecchymosis noted across the right foot @ MP joints. ) and no rashes or lesions noted Wounds: no wounds Neuro: General: No gait normal (Abnormal today 2/2 dizziness and Right foot pain.) Motor exam (neuro): 5/5 motor strength present throughout a
[2022-02-26 16:26] LABS: Glucose Point of Care 185 mg/dl (65-105)
[2022-02-26 20:25] LABS: Glucose Point of Care 238 mg/dl (65-105)
[2022-02-26] MEDS: INSULIN GLARGINE (*BKC) 100 UNITS/ML 14 UNITS SUB-Q (20:39)
[2022-02-27] VITALS (12 sets, daily range): BP systolic 78–133; BP diastolic 34–61; PULSE 64–89; RESP 16–18; TEMP 36.6–36.8; O2SAT 90–97
[2022-02-27 07:52] LABS: Basophils Absolute Auto 0.1 K/mm3 (0.0-0.1); Basophils Percent Auto 0.8 % (0.2-1.2); Eosinophils Absolute Auto 0.3 K/mm3 (0-0.3); Eosinophils Percent Auto 3.4 % (0-4.4); Hematocrit 39.8 % (37.0-47.0); Hemoglobin 12.7 g/dL (12.0-15.0); Immature Granulocyte Absolute 0.06 K/mm3 (0.00-0.031); Immature Granulocyte Percent A 0.7 % (0-0.5); Lymphocytes Absolute Auto 2.41 K/mm3 (0.9-3.2); Lymphocytes Percent Auto 26.2 % (18.3-44.2); Mean Corpuscular HGB Conc 31.9 g/dl (32-36); Mean Corpuscular Hemoglobin 28.9 pg (26-34); Mean Corpuscular Volume 90.5 fl (80-100); Mean Platelet Volume 10.1 fl (7.4-10.4); Monocytes Absolute Auto 0.9 K/mm3 (0.1-0.6); Monocytes Percent Auto 10.1 % (2.6-8.5); Neutrophils Absolute Auto 5.4 K/mm3 (1.3-6.7); Neutrophils Percent Auto 58.8 % (45.5-73.1); Platelet Count Result 237 k/mm3 (150-375); Red Cell Distribution Width 13.8 % (11.5-14.5); White Blood Count 9.2 K/mm3 (4.5-10.0)
[2022-02-27 08:07] LABS: Alanine Aminotransferase 11 U/L (6-35); Albumin Level 3.3 g/dL (3.5-5.1); Alkaline Phosphatase 77 U/L (38-126); Anion Gap 7 mmol/L (8-16); Aspartate Amino Transferase 16 U/L (14-36); Bilirubin,Total 0.7 mg/dL (0.2-1.3); Blood Urea Nitrogen 32 mg/dL (7-17); Calcium 8.4 mg/dL (8.4-10.2); Carbon Dioxide 28 mmol/L (22-30); Chloride 102 mmol/L (98-107); Estimated CRCL calculation 34 ml/min; Estimated Glomerular Filt Rate 44; Glucose 223 mg/dL (65-110); Magnesium 1.7 mg/dL (1.6-2.3); Potassium 4.7 mmol/L (3.4-5.0); Sodium 137 mmol/L (137-145)
[2022-02-27 08:12] LABS: Glucose Point of Care 199 mg/dl (65-105)
[2022-02-27] MEDS: CHOLECALCIFEROL 1,000 UNITS TABLET 4000 UNITS PO (08:43)
[2022-02-27] MEDS: METOCLOPRAMIDE HCL 10 MG TABLET PO (08:43)
[2022-02-27] MEDS: PANTOPRAZOLE 40 MG TABLET PO (08:43)
[2022-02-27] MEDS: FAMOTIDINE 20 MG TABLET PO ×2 (08:43→17:53)
[2022-02-27] MEDS: MIDODRINE HCL 2.5 MG TABLET 5 MG PO ×3 (08:43→17:52)
[2022-02-27] MEDS: TAMSULOSIN HCL 0.4 MG CAPSULE PO (10:59)
--- NOTE | 2022-02-27 11:31 | PM.IMPN ---
Progress Note: A&P Assessment and Plan (1) Syncope due to orthostatic hypotension: Code(s): I95.1 - Orthostatic hypotension Status: Acute Assessment and Plan: - Suspicion secondary to Autonomic dysfunction due to residential T1D. - BP dropped to 64/39 standing with check of Orthostatic vitals yesterday and improved with administration of Midodrine 5 mg BID. - Increase Midodrine to 5 mg po TID. - Continue to check Orthostatic vital signs Q shift. Pt. had no orthostasis yesterday, but has had one episode this AM of 81/48 with changing of position. - Fall precautions. - Reminder to rise and change positions slowly. - PT evaluated. - Consider outpatient Cardiology and Neurology workup as needed. (2) Chronic kidney disease, stage III (moderate): Code(s): N18.3 - Chronic kidney disease, stage 3 (moderate) Status: Chronic Assessment and Plan: - Renal function is at baseline with Creatinine of 1.2 and BUN of 24. 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 may continue to dose with her own insulin pump. - Continue Hypoglycemic protocol. - Continue Glucose checks AC and HS. (4) Gastro-esophageal reflux disease with esophagitis: Code(s): K21.0 - Gastro-esophageal reflux disease with esophagitis Status: Chronic Assessment and Plan: - Continue PPI therapy. (5) Short leg syndrome, right, acquired: Code(s): M21.70 - Unequal limb length (acquired), unspecified site Status: Chronic Assessment and Plan: - Chronic. (6) Contusion of foot, right: Code(s): S90.31XA - Contusion of right foot, initial encounter Status: Acute Assessment and Plan: - Imaging of right foot is negative for any acute fracture. - Will consult PT for evaluation. Time Spent With Patient Time with patient: 15 - 25 minutes Subjective Date/time seen: 02/27/22 1040 This pt. was examined at the bedside today in interval assessment. She has presumed autonomic dysfunction with severe orthostatic hypotension as low as 69/34 yesterday. She had tried to take Midodrine in the past and was unable to secondary to it increasing her BP too high. She was started on a minimal dose yesterday of 5 mg BID. She had favorable results with regards to this citing that her dizziness was much less and she also wasn't orthostatic anymore yesterday. She is extremely anxious and she was given the medication handout of Midodrine by the nurse with her first dose and the patient has thoroughly read the information regarding Midodrine. She endorses this morning that the existing problem of being unable to completely empty her bladder worsened even after just the first dose of midodrine yesterday. It is recorded that pt. has been urinating, however, it has not been measured. Her renal function is at baseline but she is very concerned. In addition, the pt. made herself sit up for 4 hours after taking the medication yesterday, not because myself or the RN advised her to, but because the medication information sheet stated that some may have to. The pt. was reassured that she does not have to sit up for 4 hours after taking it. I have ordered an accurate I&O for her so we can measure her UOP, and I will try a dose of Flomax to see if it makes any difference for her. Her Midodrine dose is increased today to 5 mg TID. She had one orthostatic BP this morning. She may ultimately need referral to Cardiology and/or Neurology as outpatient as I have previously suggested to her. At the time of my assessment, she is sitting up at the bedside in no acute distress. She has no CP, dyspnea, Palpitations, N/V/D or any headache. She said she just became dizzy in attempting to work with therapy and had to sit back down. Review of Systems Review of Systems: All s
[2022-02-27 11:45] LABS: Glucose Point of Care 143 mg/dl (65-105)
[2022-02-27 16:48] LABS: Glucose Point of Care 85 mg/dl (65-105)
[2022-02-27 21:34] LABS: Glucose Point of Care 118 mg/dl (65-105)
[2022-02-27] MEDS: INSULIN GLARGINE (*BKC) 100 UNITS/ML 14 UNITS SUB-Q (21:42)
[2022-02-28] VITALS (12 sets, daily range): BP systolic 87–127; BP diastolic 41–54; PULSE 65–77; RESP 18–20; TEMP 36.3–37.1; O2SAT 94–97
[2022-02-28 06:16] LABS: Glucose Point of Care 79 mg/dl (65-105)
[2022-02-28 06:44] LABS: Basophils Absolute Auto 0.1 K/mm3 (0.0-0.1); Basophils Percent Auto 0.9 % (0.2-1.2); Eosinophils Absolute Auto 0.4 K/mm3 (0-0.3); Eosinophils Percent Auto 3.9 % (0-4.4); Hematocrit 40.9 % (37.0-47.0); Hemoglobin 13.1 g/dL (12.0-15.0); Immature Granulocyte Absolute 0.04 K/mm3 (0.00-0.031); Immature Granulocyte Percent A 0.4 % (0-0.5); Lymphocytes Absolute Auto 2.58 K/mm3 (0.9-3.2); Lymphocytes Percent Auto 24.4 % (18.3-44.2); Mean Corpuscular Hemoglobin 28.7 pg (26-34); Mean Corpuscular Volume 89.5 fl (80-100); Mean Platelet Volume 10.2 fl (7.4-10.4); Monocytes Percent Auto 9.5 % (2.6-8.5); Neutrophils Absolute Auto 6.4 K/mm3 (1.3-6.7); Neutrophils Percent Auto 60.9 % (45.5-73.1); Platelet Count Result 263 k/mm3 (150-375); Red Blood Count 4.57 M/mm3 (4.2-5.4); Red Cell Distribution Width 13.9 % (11.5-14.5); White Blood Count 10.6 K/mm3 (4.5-10.0)
[2022-02-28 06:51] LABS: Alanine Aminotransferase 12 U/L (6-35); Albumin Level 3.3 g/dL (3.5-5.1); Alkaline Phosphatase 74 U/L (38-126); Anion Gap 10 mmol/L (8-16); Aspartate Amino Transferase 17 U/L (14-36); Bilirubin,Total 0.5 mg/dL (0.2-1.3); Blood Urea Nitrogen 30 mg/dL (7-17); Calcium 9.1 mg/dL (8.4-10.2); Carbon Dioxide 22 mmol/L (22-30); Chloride 103 mmol/L (98-107); Estimated CRCL calculation 34 ml/min; Estimated Glomerular Filt Rate 44; Glucose 76 mg/dL (65-110); Magnesium 1.8 mg/dL (1.6-2.3); Potassium 4.4 mmol/L (3.4-5.0); Sodium 135 mmol/L (137-145)
[2022-02-28 08:11] LABS: Glucose Point of Care 119 mg/dl (65-105)
[2022-02-28] MEDS: SODIUM CHLORIDE 0.9% IV 1,000 ML 100 ML IV CONT ×2 (08:16→19:03)
[2022-02-28] MEDS: MIDODRINE HCL 10 MG TABLET PO ×3 (08:20→17:46)
[2022-02-28] MEDS: CHOLECALCIFEROL 1,000 UNITS TABLET 4000 UNITS PO (08:20)
[2022-02-28] MEDS: TAMSULOSIN HCL 0.4 MG CAPSULE PO (08:20)
[2022-02-28] MEDS: FAMOTIDINE 20 MG TABLET PO ×2 (08:21→17:46)
[2022-02-28] MEDS: PANTOPRAZOLE 40 MG TABLET PO (08:21)
[2022-02-28] MEDS: METOCLOPRAMIDE HCL 10 MG TABLET PO (08:21)
[2022-02-28 11:36] LABS: Glucose Point of Care 122 mg/dl (65-105)
--- NOTE | 2022-02-28 13:11 | PM.IMPN ---
Progress Note: A&P Assessment and Plan (1) Syncope due to orthostatic hypotension: Code(s): I95.1 - Orthostatic hypotension Status: Acute Assessment and Plan: - Suspicion secondary to Autonomic dysfunction due to care home T1D. - BP dropped to 78/34 standing with check of Orthostatic vitals overnight. Midodrine is increased to 10 mg po TID. - Continue to check Orthostatic vital signs Q shift. - Fall precautions. - Reminder to rise and change positions slowly. - PT evaluated. No home recommendations were made. - Consider outpatient Cardiology and Neurology workup as needed. (2) Chronic kidney disease, stage III (moderate): Code(s): N18.3 - Chronic kidney disease, stage 3 (moderate) Status: Chronic Assessment and Plan: - Renal function is at baseline with Creatinine of 1.2 and BUN of 24. 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 may continue to dose with her own insulin pump. - Continue Hypoglycemic protocol. - Continue Glucose checks AC and HS. (4) Gastro-esophageal reflux disease with esophagitis: Code(s): K21.0 - Gastro-esophageal reflux disease with esophagitis Status: Chronic Assessment and Plan: - Continue PPI therapy. (5) Short leg syndrome, right, acquired: Code(s): M21.70 - Unequal limb length (acquired), unspecified site Status: Chronic Assessment and Plan: - Chronic. (6) Contusion of foot, right: Code(s): S90.31XA - Contusion of right foot, initial encounter Status: Acute Assessment and Plan: - Imaging of right foot is negative for any acute fracture. - No recommendations for continued therapy upon discharge were made by PT. Time Spent With Patient Time with patient: 15 - 25 minutes Subjective Date/time seen: 02/28/22 1130 This pt. was examined at the bedside today in interval assessment. She continues to have occasional dizziness still only upon standing. Orthostatic vitals demonstrate one episode of orthostasis overnight. Her BP's remain low normal. Her Midodrine is being increased today to 10 mg TID and we will continue to monitor her BP. She has no complaints of pain and she has no dyspnea, N/V/D. Her UOP over the past 24 hours has been good at 1500 ml with the use of Flomax. We will re-evaluate her BP after the increase in the dose of Midodrine. Review of Systems Review of Systems: All systems reviewed & are unremarkable except as noted in HPI and below Exam Const: General: comfortable and no acute distress Other: + Intermittent dizziness remains. HENMT: Ears: TM's normal bilaterally General nose exam: Normal nares present and no epistaxis Mouth: Yes moist mucous membranes Eyes: General: appearance normal, both eyes and all related structures Sclera: sclerae normal Pupils: Equal, round and reactive pupils present EOM: EOMs intact bilaterally Neck: Neck: supple and no JVD Resp: Effort & Inspection: normal respiratory effort Auscultation: clear to auscultation bilaterally Cardio: Rate: regular rate Rhythm: regular rhythm Heart sounds: no gallops, no murmurs and no rubs GI: Inspection: non-distended Auscultation: normal bowel sounds Skin: General skin exam: No normal color (Ecchymosis noted across the right foot @ MP joints. ) and no rashes or lesions noted Wounds: no wounds Neuro: General: No gait normal (Abnormal today 2/2 dizziness and Right foot pain.) Cranial nerves: Yes Equal, round and reactive pupils present Motor exam (neuro): 5/5 motor strength present throughout and Normal motor muscle tone present throughout Sensory Exam: normal sensation Other: No focal findings. Extrem: General: normal exam except as noted and edema right (foot, dorsal surface.) Psych: Mental Status: mental status grossly
[2022-02-28 14:30] LABS: Glucose Point of Care 57 mg/dl (65-105)
[2022-02-28 16:35] LABS: Glucose Point of Care 101 mg/dl (65-105)
[2022-02-28 21:34] LABS: Glucose Point of Care 70 mg/dl (65-105)
[2022-03-01] VITALS: PULSE 78
[2022-03-01 04:00] VITALS: PULSE 69
[2022-03-01 06:00] VITALS: BP 124/54; PULSE 73; RESP 18; TEMP 36.8; O2SAT 96
[2022-03-01 06:27] LABS: Basophils Absolute Auto 0.1 K/mm3 (0.0-0.1); Basophils Percent Auto 0.8 % (0.2-1.2); Eosinophils Absolute Auto 0.4 K/mm3 (0-0.3); Hematocrit 38.2 % (37.0-47.0); Hemoglobin 12.1 g/dL (12.0-15.0); Immature Granulocyte Absolute 0.03 K/mm3 (0.00-0.031); Immature Granulocyte Percent A 0.3 % (0-0.5); Lymphocytes Absolute Auto 1.77 K/mm3 (0.9-3.2); Lymphocytes Percent Auto 19.5 % (18.3-44.2); Mean Corpuscular HGB Conc 31.7 g/dl (32-36); Mean Corpuscular Hemoglobin 28.9 pg (26-34); Mean Corpuscular Volume 91.2 fl (80-100); Mean Platelet Volume 9.9 fl (7.4-10.4); Monocytes Absolute Auto 0.8 K/mm3 (0.1-0.6); Monocytes Percent Auto 9.2 % (2.6-8.5); Neutrophils Percent Auto 66.2 % (45.5-73.1); Platelet Count Result 241 k/mm3 (150-375); Red Blood Count 4.19 M/mm3 (4.2-5.4); Red Cell Distribution Width 13.9 % (11.5-14.5); White Blood Count 9.1 K/mm3 (4.5-10.0)
[2022-03-01 07:01] LABS: Alanine Aminotransferase 12 U/L (6-35); Albumin Level 2.8 g/dL (3.5-5.1); Alkaline Phosphatase 66 U/L (38-126); Anion Gap 7 mmol/L (8-16); Aspartate Amino Transferase 18 U/L (14-36); Bilirubin,Total 0.6 mg/dL (0.2-1.3); Blood Urea Nitrogen 27 mg/dL (7-17); Calcium 8.1 mg/dL (8.4-10.2); Carbon Dioxide 22 mmol/L (22-30); Chloride 106 mmol/L (98-107); Estimated CRCL calculation 37 ml/min; Estimated Glomerular Filt Rate 48; Glucose 114 mg/dL (65-110); Magnesium 1.6 mg/dL (1.6-2.3); Potassium 4.4 mmol/L (3.4-5.0); Sodium 135 mmol/L (137-145)
[2022-03-01 08:00] VITALS: PULSE 76; O2SAT 98
[2022-03-01 08:01] LABS: Glucose Point of Care 128 mg/dl (65-105)
--- NOTE | 2022-03-01 08:02 | PM.DS ---
DS: Admitting Diagnosis Discharge Date 03/01/2022 Admitting Diagnosis Syncope due to orthostatic Hypotension, CKD3, T1DM, GERD, Short leg syndrome DS: Discharge Diagnosis Discharge Diagnosis (1) Syncope due to orthostatic hypotension: Code(s): I95.1 - Orthostatic hypotension Status: Acute Assessment and Plan: - Suspicion secondary to Autonomic dysfunction due to long term care pharmacist T1D. - We have increased Midodrine to 10 mg TID and her BP has remained stable, with a minimal from from 108/52 Sitting -->90/41 Standing. Will continue Midodrine at home, and prescription is given. - Fall precautions. - Reminder to rise and change positions slowly. - PT evaluated. No home recommendations were made. - Consider outpatient Cardiology for Holter monitor and Neurology for EEG workup as needed in the outpatient setting. (2) Chronic kidney disease, stage III (moderate): Code(s): N18.3 - Chronic kidney disease, stage 3 (moderate) Status: Chronic Assessment and Plan: - Renal function is at baseline with Creatinine of 1.10 and BUN of 24. 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 (4) Gastro-esophageal reflux disease with esophagitis: Code(s): K21.0 - Gastro-esophageal reflux disease with esophagitis Status: Chronic Assessment and Plan: - Continue PPI therapy. (5) Short leg syndrome, right, acquired: Code(s): M21.70 - Unequal limb length (acquired), unspecified site Status: Chronic Assessment and Plan: - Chronic. (6) Contusion of foot, right: Code(s): S90.31XA - Contusion of right foot, initial encounter Status: Acute Assessment and Plan: - Imaging of right foot is negative for any acute fracture. - No recommendations for continued therapy upon discharge were made by PT. (7) Symptom of bladder outlet obstruction: Code(s): N32.0 - Bladder-neck obstruction Status: Suspected Assessment and Plan: - Pt. with long term care pharmacist difficulty of urinating with drips only and low flow stream despite adequate UOP. She is started on Flomax here and has had favorable results. Will continue for a term of 14 days and will need to be referred to a Urologist as an outpatient for continued urodynamic testing and management. DS: Summary Hospital Course Reason for hospitalization: Syncope Hospital Course: This 76 year old female patient with significant PMH of T1DM, and multiple previous episodes of syncope presented to the ER on 02/25/2022 after sustaining a syncopal episode at home. She had no acute findings on CT of brain, MRI of brain, US of carotid dopplers and normal ECHO. Throughout the course of her admission she had continued to complain about dizziness that is worse with standing and walking, but she reports that her episodes of syncope which have been as often as 7 in the past year, come out of no where. She admittedly has tried Midodrine before but stated that it increased her blood pressure too much and it was stopped. It was re-introduced during this admission and the patient had a favorable outcome. In the past 24 hours she has not experienced orthostasis and will be discharged home at this time on Midodrine. She will need to follow up with her PCP in the next 3-4 days to have her BP rechecked and to discuss possible outpatient referrals to Cardiology for a Holter monitor and to Neurology for outpatient EEG testing. While here she also complained of weak bladder stream and reported that she only drip drops when she begins her urination. She denies any incontinence, but her urine output was normal. Pt. was very concerned about this as she read in insert of the Midodrine and it can cause some bladder retention, so she was trialed on Flomax
[2022-03-01] MEDS: PANTOPRAZOLE 40 MG TABLET PO (08:42)
[2022-03-01] MEDS: TAMSULOSIN HCL 0.4 MG CAPSULE PO (08:42)
[2022-03-01] MEDS: MIDODRINE HCL 10 MG TABLET PO (08:42)
[2022-03-01] MEDS: FAMOTIDINE 20 MG TABLET PO (08:42)
[2022-03-01] MEDS: CHOLECALCIFEROL 1,000 UNITS TABLET 4000 UNITS PO (08:42)
[2022-03-01 08:51] VITALS: O2SAT 96
== END 2022-03-01 12:10 | disposition home or self-care (01) | DRG 74 ==
LOC: ANHED 23:40 → ANH3MEDSUR 02-25 01:53
PROVIDERS: Emergency Medicine; Admitting Provider Internal Medicine; Emergency Provider Preventive Medicine Aerospace Medicine; PCP Internal Medicine; Visit Provider Nurse Practitioner Adult Health
DX: E10.49 Type 1 diabetes mellitus with other diabetic neurological complication (principal); G90.3 Multi-system degeneration of the autonomic nervous system; E10.22 Type 1 diabetes mellitus with diabetic chronic kidney disease; N18.30 Chronic kidney disease, stage 3 unspecified; K21.9 Gastro-esophageal reflux disease without esophagitis; S90.31XA Contusion of right foot, initial encounter; I35.1 Nonrheumatic aortic (valve) insufficiency; N32.0 Bladder-neck obstruction; M21.70 Unequal limb length (acquired), unspecified site; Z20.822 Contact with and (suspected) exposure to COVID-19; Z79.4 Long term (current) use of insulin; Z87.81 Personal history of (healed) traumatic fracture; Z90.710 Acquired absence of both cervix and uterus; Z90.49 Acquired absence of other specified parts of digestive tract; Z96.41 Presence of insulin pump (external) (internal); W19.XXXA Unspecified fall, initial encounter
CPT/HCPCS: 36415; 70553; 73630; 80053; 81001; 82948; 83735; 85025; 93005; 93880; 96361; 96374; 97161; 97165; 99285; A9270; A9577; C8929; C9803; G0378; J1815; J7030; J7120; Q9957; U0003; U0005

== ENCOUNTER 2022-03-09 09:38 | Inpatient (IN) | payer MEDICARE, MEDICAID, SELFPAY ==
[2022-03-09] VITALS (13 sets, daily range): BP systolic 75–151; BP diastolic 45–78; PULSE 68–76; RESP 13–22; TEMP 35.7–36.9; O2SAT 94–100; BMI 27.3
--- NOTE | ~2022-03-09 | CT_ITS ---
EXAMINATION: CT cervical spine wo con DATE: 03/09/2022 12:55 INDICATION: Neck pain after fall TECHNIQUE: Computed tomography (CT) of the cervical spine was performed without intravenous contrast. The dose-length product (DLP) was 105.46 mGy-cm. Automated exposure control and iterative reconstruc tion technique were employed. COMPARISON: None FINDINGS: There is no fracture, dislocation, or subluxation. The vertebral body heights are normal. T he odontoid is intact. There is moderate loss of intervertebral disc space height at C5-6 and C6-7. T here is moderate multilevel facet and uncovertebral joint osteoarthritis. Soft tissues are normal IMPRESSION: 1. Moderate cervical spondylosis without acute findings. Reviewed, dictated and finalized at location A.
--- NOTE | 2022-03-09 09:42 | ECG_ITS ---
Measurements Intervals [place] Rate: 72 P: 1 [place]: 164 QRS: 38 QRSD: 84 T: 30 QT: 417 QTc: 457 Interpretive Statements SINUS RHYTHM NORMAL ECG COMPARED TO ECG 02/24/2022 16:09:57 NO SIGNIFICANT CHANGES Electronically Signed On 03-09-2022 14:42:54 CDT by Finesse Garcia M.D.
--- NOTE | 2022-03-09 09:48 | ED.GENADULT ---
HPI - General Adult General Chief complaint: Syncope Stated complaint: syncopal from sit to standing Time Seen by Provider: 03/09/22 09:48 Source: patient, family and EMS Mode of arrival: EMS Limitations: no limitations History of Present Illness HPI narrative: 76 years old white female came by ambulance from home complaining of blacking out every time she sit up or stand up. This been going for the last few weeks. Patient was hospitalized for 5 days in our hospital 1 week ago and got discharged on midodrine 10 mg 3 times daily without improvement. She denies any fever, chills, nausea, vomiting, chest pain, shortness of breath, headache, abdominal pain or back pain. History of diabetes, she does not smoke or drink or uses drugs. She lives alone. Related Data Home Medications Medication Instructions Recorded Confirmed insulin lispro 100 unit/mL 1 sliding scale dose subcut 10/13/19 03/07/22 subcutaneous solution (Humalog USEASDIRECTD U-100 Insulin) omeprazole 20 mg capsule,delayed 20 mg PO DAILY 10/13/19 03/07/22 release Lactobacills gasseri-Bifidobac 1 cap PO DAILY 07/26/20 03/07/22 bifidum,longum 1.5 billion cell capsule (Bitbrains) famotidine 20 mg tablet 20 mg PO BID 07/26/20 03/07/22 Allergies Allergy/AdvReac Type Severity Reaction Status Date / Time vancomycin Allergy Unknown Hypertensio Verified 03/09/22 09:46 n Review of Systems Review of Systems: All systems reviewed & are unremarkable except as noted in HPI and below PMFSH Past Medical History Medical History Screening for breast cancer Surgical History Surgical History H/O hysterectomy with unilateral oophorectomy History of cholecystectomy History of orthopedic surgery ankle fusion and screws placed and removed -nm Family History Family History Sibling Family history of respiratory disorder Father Family history of lung cancer Family history of emphysema Family history of coronary artery disease Mother Family history of lung cancer Other Family history of heart disease in male family member before age 55 Family history of lung disease Family history of malignant neoplasm Social History Social History Smoking status: Never smoker Second hand tobacco smoke exposure: Yes Alcohol intake: never Alcohol use details: once every 3-4 years Substance use: never Substance use type: does not use Spiritual care concerns: No Exam Narrative: General appearance: Well-developed, well-nourished Skin: Normal color Head: Normocephalic, nontraumatic Eyes: Clear conjunctiva ENT: Oropharynx normal, ears normal, nose normal Neck: Supple, nontender Chest and respiratory: Airway patent, no respiratory distress, no accessory muscle use Heart: Regular rate/rhythm Abdomen: Soft, nontender, no organomegaly, quiet bowel sounds Vascular: Normal peripheral pulses, normal capillary refill. Musculoskeletal: Normal range of motion, nontender back Neurologic: Alert and oriented ?3, MASTER BARBER is normal as tested, no gross motor deficit Course Course Emergency Course: Symptomatic orthostatic hypotension is my concern. Patient already on midodrine 10 mg 3 times daily. Cardiology consult is recommended. Vital Signs Vital signs: Vital Signs Temperature 36.6 C 03/09/22 09:43 Pulse Rate 76 03/09/22 09:43 Respiratory Rate 13 03/09/22 09:43 Blood Pressure 112/49 L 03/09/22 09:43 Pulse Oximetry 98 03/09/22 09:43 Oxygen
[2022-03-09 10:04] LABS: Basophils Absolute Auto 0.1 K/mm3 (0.0-0.1); Basophils Percent Auto 0.9 % (0.2-1.2); Eosinophils Absolute Auto 0.2 K/mm3 (0-0.3); Eosinophils Percent Auto 2.6 % (0-4.4); Hematocrit 38.3 % (37.0-47.0); Hemoglobin 12.2 g/dL (12.0-15.0); Immature Granulocyte Absolute 0.03 K/mm3 (0.00-0.031); Immature Granulocyte Percent A 0.3 % (0-0.5); Lymphocytes Absolute Auto 1.72 K/mm3 (0.9-3.2); Lymphocytes Percent Auto 18.4 % (18.3-44.2); Mean Corpuscular HGB Conc 31.9 g/dl (32-36); Mean Corpuscular Hemoglobin 28.7 pg (26-34); Mean Corpuscular Volume 90.1 fl (80-100); Mean Platelet Volume 9.4 fl (7.4-10.4); Monocytes Percent Auto 10.2 % (2.6-8.5); Neutrophils Absolute Auto 6.3 K/mm3 (1.3-6.7); Neutrophils Percent Auto 67.6 % (45.5-73.1); Platelet Count Result 241 k/mm3 (150-375); Red Blood Count 4.25 M/mm3 (4.2-5.4); Red Cell Distribution Width 14.2 % (11.5-14.5); White Blood Count 9.3 K/mm3 (4.5-10.0)
[2022-03-09] MEDS: SODIUM CHLORIDE 0.9% IV 1,000 ML 999 ML IV CONT (10:07)
[2022-03-09 10:13] LABS: Alanine Aminotransferase 12 U/L (6-35); Albumin Level 3.1 g/dL (3.5-5.1); Alkaline Phosphatase 89 U/L (38-126); Anion Gap 9 mmol/L (8-16); Aspartate Amino Transferase 20 U/L (14-36); Bilirubin,Total 0.5 mg/dL (0.2-1.3); Blood Urea Nitrogen 30 mg/dL (7-17); Calcium 8.4 mg/dL (8.4-10.2); Carbon Dioxide 24 mmol/L (22-30); Chloride 103 mmol/L (98-107); Estimated CRCL calculation 27 ml/min; Estimated Glomerular Filt Rate 34; Glucose 241 mg/dL (65-110); Potassium 3.7 mmol/L (3.4-5.0); Sodium 136 mmol/L (137-145)
--- NOTE | 2022-03-09 11:30 | PC.NURSE ---
reported received from [facility] med[facility] specialist
--- NOTE | 2022-03-09 11:57 | PM.IMHP ---
H&P: HPI History of Present Illness Date/Time: 03/09/22 11:57 Chief Complaint: syncope Hypotension Narrative: patient is a 76-year-old female with a past medical history of diabetes mellitus type 1. Patient presented to [facility] after having syncopal episodes at home. Patient reports that every time she sits up or stands up this happens. This is been going on for the last several weeks. The patient was recently hospitalized for 5 days approximately 1 week ago and got discharged on midodrine 10 mg 3 times daily without improvement. Patient denies any fever, chills, nausea, vomiting, chest pain or shortness of breath. She denies any headache or visual changes. Patient denies any history of alcohol use he does use. She lives at home alone. While in the emergency department labs and imaging were obtained. Patient EKG which revealed normal sinus rhythm at 72 beats per minute compared to EKG February 24 with no significant changes. WBC 9.3, hemoglobin 12.2, hematocrit 38.3, platelet 241, sodium 136, potassium 3.7, BUN 30, creatinine 1.5, GFR 34, glucose 241. With previous review of records from last hospitalization an echocardiogram was performed at that time which revealed an LVEF of 65-70% with grade 1 diastolic dysfunction. Patient is being admitted again for repeated syncopal episodes without improvement with medications. Will consult Cardiology during the hospitalization. Will resume insulin pump orders, continue to monitor hypoglycemic protocols and check Accu-Cheks AC and HS. Continue to speak to the patient about rising slowly and changing positions slowly. Orthostatics will be obtained Q shift. of note the patient reports that she has had significant stress increase of the last 2 months. Will add hydroxyzine for anxiety Review of Systems Review of Systems: All systems reviewed & are unremarkable except as noted in HPI and below PMFSH Past Medical History Medical History Screening for breast cancer Surgical History Surgical History H/O hysterectomy with unilateral oophorectomy History of cholecystectomy History of orthopedic surgery ankle fusion and screws placed and removed -nm Family History Family History Sibling Family history of respiratory disorder Father Family history of lung cancer Family history of emphysema Family history of coronary artery disease Mother Family history of lung cancer Other Family history of heart disease in male family member before age 55 Family history of lung disease Family history of malignant neoplasm Social History Social History Smoking status: Never smoker Second hand tobacco smoke exposure: Yes Alcohol intake: never Alcohol use details: once every 3-4 years Substance use: never Substance use type: does not use Spiritual care concerns: No Meds Home Medications and Allergies Home Medications Medication Instructions Recorded Confirmed Type insulin lispro 100 unit/mL 1 sliding scale dose subcut 10/13/19 03/09/22 History subcutaneous solution (Humalog USEASDIRECTD U-100 Insulin) omeprazole 20 mg capsule,delayed 20 mg PO DAILY 10/13/19 03/09/22 History release Lactobacills gasseri-Bifidobac 1 cap PO DAILY 07/26/20 03/09/22 History bifidum,longum 1.5 billion cell capsule (Rare Pink) famotidine 20 mg tablet 20 mg PO BID 07/26/20 03/09/22 History cholecalciferol (vitamin D3) 50 100 mcg PO DAILY #90 tabs 01/31/21 03/09/22 Rx mcg (2,000 unit) tablet midodrine 10 mg tablet 10 mg PO TID 30 days #90 tabs 03/01/22 03/09/22 Rx tamsulosin 0.4 mg capsule 0.4 mg PO QAM 14 days #14 caps 03/01/22 03/09/22 Rx metoclopramide HCl 10 mg tablet 10 mg PO TID PRN nausea and 03/09/22 03/09/22 History vom
[2022-03-09 12:01] LABS: Glucose Point of Care 214 mg/dl (65-105)
--- NOTE | 2022-03-09 12:05 | PC.NURSE ---
called Isabel HAGAN to report pt c/o neck pain after fall, pt states hurt in certain position only, pt has insulin pump and bolus self. Current bs 214 before eating. Pt has abrasion x2 RLE and x1 LUE. with scattered bruising r/t recent fall at home. Pt c/o rash on head since starting midodrine, stated like dandruff, but denies having dandruff.
--- NOTE | 2022-03-09 12:14 | PC.NURSE ---
called central supply for c-collar pt c/o neck pain in certain positions
--- NOTE | 2022-03-09 12:33 | PC.NURSE ---
ct of head and neck ordered, c-collar placed per Isabel CASSIDY Pt at ct now.
[2022-03-09] MEDS: SODIUM CHLORIDE 0.9% IV 1,000 ML 75 ML IV CONT (13:05)
--- NOTE | 2022-03-09 13:14 | PC.NURSE ---
ct has no acute findings, musculoskeletal condition unlining cause of pain, ok to removed c- collar per provider Joseline Richardson.
[2022-03-09] MEDS: MIDODRINE HCL 10 MG TABLET PO ×2 (13:24→16:06)
--- NOTE | 2022-03-09 15:21 | PC.NURSE ---
This patient, Dee Gisbon, was admitted to [facility] Surg Room 321-01. Patient/family oriented to hospital policies and general routines including ID bracelet, bed and alarms, visiting hours, pain management, procedures, bathroom and other care routines, personal items, smoking policy, room service/diet, and visiting hours. Information on how to activate the Rapid Response Team has been discussed. Patient/Family are encouraged to report perceived risks to care and to ask questions if they do not understand what they are told or what they should do. Arrived at 1135 am
[2022-03-09] MEDS: hydrOXYzine HCL 10 MG TABLET PO (16:06)
[2022-03-09 16:28] LABS: Glucose Point of Care 267 mg/dl (65-105)
--- NOTE | 2022-03-09 17:08 | PC.NURSE ---
pt stated that continuous insulin dose is 0.070 except during the noc 1am to 5am increases to 0.075.
--- NOTE | 2022-03-09 17:12 | PC.NURSE ---
pt bolus 10.1 u at lunch and 10 u at dinner
--- NOTE | 2022-03-09 17:37 | PC.NURSE ---
pt has bolus 10.1 units with lunch and 10.0 u with dinner, basal rate is 0.07u/hrs, since 1135 to now pt has received 20.35units of insulin via pump this shift. Pt will received at total of 20.42 at 7pm today this shift.
--- NOTE | 2022-03-09 18:04 | PC.NURSE ---
ua collected sent to lab for analysis
[2022-03-09 18:14] LABS: Appearance Urine Slightly Cloudy (Clear); Bilirubin Urine 1+ (Negative); Color Urine Yellow (Yellow); Glucose Urine UA 2+ mg/dL (Negative); Ketones Urine 1+ mg/dL (Negative); Leukocyte Esterase Ur Negative LEU/UL (Negative); Nitrate Urine Negative (Negative); Protein Urine 2+ mg/dL (Negative); Specific Grav Ur >= 1.030 (1.001-1.035); Urobilinogen Urine 0.2 mg/dL (<2.0)
[2022-03-09 18:30] LABS: Bacteria Urine Trace /hpf; Mucus Urine Rare /lpf; RBC Urine 0-2 /hpf (0-2); Squamous Epithelial Cell Urine Moderate /hpf (Few)
[2022-03-09 18:31] LABS: Add Urine Microscopic? YES; Blood Urine Trace-Intact (Negative)
--- NOTE | 2022-03-09 18:52 | PC.NURSE ---
pt report bm 03/08/22
[2022-03-09 23:20] LABS: Glucose Point of Care 434 mg/dl (65-105)
[2022-03-10] VITALS (11 sets, daily range): BP systolic 91–130; BP diastolic 38–72; PULSE 67–81; RESP 16–19; TEMP 35.9–37.2; O2SAT 95–97; BMI 27.3
[2022-03-10] MEDS: SODIUM CHLORIDE 0.9% IV 1,000 ML 75 ML IV CONT (06:24)
[2022-03-10 06:45] LABS: Anion Gap 12 mmol/L (8-16); Blood Urea Nitrogen 29 mg/dL (7-17); Calcium 7.3 mg/dL (8.4-10.2); Carbon Dioxide 20 mmol/L (22-30); Chloride 101 mmol/L (98-107); Estimated CRCL calculation 31 ml/min; Estimated Glomerular Filt Rate 40; Glucose 502 mg/dL (65-110); Potassium 4.2 mmol/L (3.4-5.0); Sodium 133 mmol/L (137-145)
[2022-03-10 07:50] LABS: Glucose Point of Care 499 mg/dl (65-105)
[2022-03-10] MEDS: INSULIN ASPART (*BKC) 100 UNITS/ML SUB-Q ×3 (08:01→16:46)
[2022-03-10] MEDS: INSULIN ASPART (*BKC) 100 UNITS/ML 10 UNITS SUB-Q (08:01)
[2022-03-10] MEDS: SACCHAROMYCES BOULARDII 250 MG CAPSULE PO (08:08)
[2022-03-10] MEDS: MIDODRINE HCL 10 MG TABLET PO ×3 (08:08→16:47)
[2022-03-10] MEDS: CHOLECALCIFEROL 1,000 UNITS TABLET 4000 UNITS PO (08:08)
[2022-03-10] MEDS: PANTOPRAZOLE 40 MG TABLET PO (08:09)
[2022-03-10] MEDS: TAMSULOSIN HCL 0.4 MG CAPSULE PO (08:09)
[2022-03-10] MEDS: METOCLOPRAMIDE HCL 10 MG TABLET PO (08:10)
[2022-03-10 08:44] LABS: Hemoglobin A1C 6.3 % (<5.7)
[2022-03-10 10:21] LABS: Glucose Point of Care 405 mg/dl (65-105)
--- NOTE | 2022-03-10 10:26 | PC.NURSE ---
pt's glucose at 0700 was 502. This nurse had resin coater check capillary glucose at 0730. bs was 499. called luzma mcmahan and this nurse was told to give 10 units of novolog once plus 4 units with the sliding scale with breakfast. had resin coater reckeck capillary glucose at 10 and called luzma about blood sugar of 405. luzma told this nurse to give 8 units of novolog now.
[2022-03-10] MEDS: INSULIN ASPART (*BKC) 100 UNITS/ML 8 UNITS SUB-Q (10:31)
[2022-03-10 11:34] LABS: Glucose Point of Care 372 mg/dl (65-105)
--- NOTE | 2022-03-10 12:53 | PM.CNCAR ---
Assessment and Plan Assessment and plan (1) Autonomic orthostatic hypotension: Code(s): I95.1 - Orthostatic hypotension Status: Acute Plan This is a 76-year-old lady with complicated diabetes presenting with what appears to be problematic orthostasis. She does have diabetic neuropathy and retinopathy. Despite being placed on midodrine recently and currently taking and high dosage she has continued to have symptoms and was readmitted about 2 weeks after her last discharge. Echocardiogram demonstrated vigorous LV systolic function and no significant valvular dysfunction. I am going to continue the midodrine for now and add Florinef to her regimen. I would also consider thigh-high support hose to be appropriate in this setting. Orthostatic vital signs need to be recorded at least Q shift I will order those as well. Thank you for asking me to see this nice lady and participate in this challenging situation Moises Dowd MD [facility] History of Present Illness History of Present Illness Consult date/time: 03/10/22 12:53 Reason For Visit: Symptomatic orthostatic hypotension, CJ Narrative: This is a very pleasant 76-year-old lady am seeing at the request of the hospitalist because of recurrent syncope that appears to be the result of orthostatic hypotension. The patient is unknown to me prior to this encounter and does not describe any prior history of serious cardiac problems. She does have longstanding diabetes with diabetic neuropathy and diabetic retinopathy. She has been having episodes of of orthostatic hypotension for about 6 months. Her notes from her PCP appointments reflect her having these episodes for some time. They have recently rapidly accelerated and she is having a lot of difficulty standing up even with the use of a walker or a Rollator with recurrent loss of consciousness and her falling. She was hospitalized for this earlier this month. She was in the hospital for about 5 days at that time she was started on midodrine with doses up titrated to 10 mg 3 times daily. She reported improvement and was discharged. Plans were made for outpatient referral for further cardiology evaluation of this in terms of a Holter monitor device. She has not had any arrhythmias identified while she is been in the hospital. She had several more episodes last week and then on Thursday of this past weekend she had 5 episodes of falling/loss of consciousness and so she came back to the hospital for further management and evaluation. She is very pleasant lady in bed. Orthostatic vital signs have not been performed since she has been in the hospital yesterday. Her systolic blood pressures in the 120s. Echocardiogram done during the last admission showed some LVH with vigorous left ventricular systolic function and grade 1 diastolic noncompliance. The remainder of her medical regimen includes her insulin, a probiotic, famotidine and tamsulosin. The patient states that the episodes where she loses consciousness strictly happen when she is in the standing position they will almost always occur if she tries to walk any distance at all. Since she has been in the hospital she has been at bed rest. She has never had syncopal episodes occurring in the lying or seated position. Interestingly despite all these multiple falls that she has sustained she has not had any fractures or other serious injuries. Review of Systems Constitutional: Constitutional: Reports no additional constitutional complaints Eyes: Eyes: Reports no additional eye complaints ENT: Reports system reviewed and no additional complaints, except as documented Cardiovascular: Cardiovascular: Reports as per HPI Respiratory: Respiratory: Reports no additional respiratory complaints Gastrointestinal: Gastrointestinal: Reports no additional gastrointestinal complaints Musculoskeletal: Musculoskeletal: Reports no additional musculoskeletal complaints Integumentary/Breasts:
[2022-03-10] MEDS: FLUDROCORTISONE ACETATE 0.1 MG TABLET PO (13:04)
--- NOTE | 2022-03-10 13:50 | PM.IMPN ---
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 - Recently started on midodrine, however unfortunately symptoms have persisted. Continue midodrine 10 mg t.i.d. - Add Florinef per Cardiology recommendations - Appreciate cardiology consultation - Continue to monitor orthostatics Q shift - Thigh-high Kavon hose - Fall precautions implemented - Reminder to rise and change positions slowly. 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 - Transition to Lantus 18 units qHS - Moderate dose sliding scale insulin - Reports blood sugars typically well controlled, states last A1c was 5.6 - Fasting glucose 500 today. Patient has received novolog and blood sugar is trending downward. - Monitor accuchecks q2h until glucose is below 300 - Anion gap normal, no evidence of DKA. - Hypoglycemic protocol initiated. - Check updated A1c (3) Chronic kidney disease, stage III (moderate): Code(s): N18.3 - Chronic kidney disease, stage 3 (moderate) Status: Chronic Assessment and Plan: Renal function reviewed and appears consistent with baseline - Monitor BMP (4) Symptom of bladder outlet obstruction: Code(s): N32.0 - Bladder-neck obstruction Status: Suspected Assessment and Plan: Patient reports urinary dribbling - Recently completed 14 day course of Flomax with symptomatic improvement - Patient has outpatient urology appt scheduled for tomorrow which she will not be able to attend due to hospitalization - Will hold Flomax at this time due to hypotension - Monitor urine output closely (5) Neck pain: Code(s): M54.2 - Cervicalgia Status: Acute Assessment and Plan: Resolved. - Cervical spine CT showed moderate cervical spondylosis with no acute findings - Supportive care (6) Situational anxiety: Code(s): F41.8 - Other specified anxiety disorders Status: Acute Assessment and Plan: No acute issues at this time - PRN hydroxyzine Time Spent With Patient Time with patient: 25 - 35 minutes Subjective Date/time seen: 03/10/22 13:50 Interval history: Date of service: 03/10/2022 Dee Gibson is a 76 year old female with history of type 1 diabetes mellitus maintained on insulin pump, multiple previous episodes of syncope felt to be related to orthostatic hypotension with recent admission about 2 weeks ago for same who is again seen in follow-up for multiple episodes of syncope at home felt to be secondary to orthostatic hypertension. She states that since returning home, she has been taking midodrine but continues to have episodes of syncope. She reports 7 total episodes of syncope since her discharge on 02/26/2022. She states she typically walks about 8-12 steps and then with no warning symptoms she passes out and falls to the ground. Thankfully she has not developed any injuries with the exception of a few scrapes on her arms. She states that she feels dizzy ?90% of the time.? When she is lying down, she is asymptomatic. She has been working on changing positions very slowly and has also been ambulating with a walker. Unfortunately, these changes have not provided much improvement. Since she has been
[2022-03-10 14:23] LABS: Glucose Point of Care 367 mg/dl (65-105)
[2022-03-10] MEDS: SODIUM CHLORIDE 0.9% IV 1,000 ML 125 ML IV CONT ×2 (15:26→23:23)
[2022-03-10] MEDS: INSULIN ASPART (*BKC) 100 UNITS/ML 9 UNITS SUB-Q (16:46)
[2022-03-10 16:56] LABS: Glucose Point of Care 339 mg/dl (65-105)
[2022-03-10 20:57] LABS: Glucose Point of Care 262 mg/dl (65-105)
[2022-03-10] MEDS: INSULIN GLARGINE (*BKC) 100 UNITS/ML 18 UNITS SUB-Q (21:03)
[2022-03-11] VITALS (11 sets, daily range): BP systolic 72–161; BP diastolic 42–56; PULSE 62–70; RESP 18–19; TEMP 36.3–36.4; O2SAT 94–98
[2022-03-11 07:03] LABS: Hematocrit 36.6 % (37.0-47.0); Hemoglobin 11.7 g/dL (12.0-15.0); Mean Corpuscular Hemoglobin 28.7 pg (26-34); Mean Corpuscular Volume 89.9 fl (80-100); Mean Platelet Volume 9.8 fl (7.4-10.4); Platelet Count Result 208 k/mm3 (150-375); Red Blood Count 4.07 M/mm3 (4.2-5.4); Red Cell Distribution Width 14.1 % (11.5-14.5); White Blood Count 7.2 K/mm3 (4.5-10.0)
[2022-03-11 07:07] LABS: Anion Gap 6 mmol/L (8-16); Blood Urea Nitrogen 23 mg/dL (7-17); Calcium 7.2 mg/dL (8.4-10.2); Carbon Dioxide 26 mmol/L (22-30); Chloride 106 mmol/L (98-107); Estimated CRCL calculation 40 ml/min; Estimated Glomerular Filt Rate 54; Glucose 231 mg/dL (65-110); Potassium 3.6 mmol/L (3.4-5.0); Sodium 138 mmol/L (137-145)
[2022-03-11 07:47] LABS: Glucose Point of Care 234 mg/dl (65-105)
[2022-03-11] MEDS: INSULIN ASPART (*BKC) 100 UNITS/ML SUB-Q ×2 (08:08→11:41)
[2022-03-11] MEDS: INSULIN ASPART (*BKC) 100 UNITS/ML 6 UNITS SUB-Q ×3 (08:08→16:34)
[2022-03-11] MEDS: SODIUM CHLORIDE 0.9% IV 1,000 ML 125 ML IV CONT (08:11)
[2022-03-11] MEDS: SACCHAROMYCES BOULARDII 250 MG CAPSULE PO (08:14)
[2022-03-11] MEDS: CHOLECALCIFEROL 1,000 UNITS TABLET 4000 UNITS PO (08:15)
[2022-03-11] MEDS: METOCLOPRAMIDE HCL 10 MG TABLET PO (08:15)
[2022-03-11] MEDS: PANTOPRAZOLE 40 MG TABLET PO (08:15)
[2022-03-11] MEDS: MIDODRINE HCL 10 MG TABLET PO ×3 (08:15→16:34)
[2022-03-11] MEDS: FLUDROCORTISONE ACETATE 0.1 MG TABLET PO (08:15)
--- NOTE | 2022-03-11 09:21 | PCPTNOTE ---
Attempted PT evaluation, pt's BP too low to ambulate at this time. RN aware. Will follow.
--- NOTE | 2022-03-11 10:36 | PM.PNCARD ---
Progress Note: A&P Assessment and Plan (1) Autonomic orthostatic hypotension: Code(s): I95.1 - Orthostatic hypotension Status: Acute Assessment and Plan: Problematic orthostatic hypotension resulting in recurrent syncope. She is on midodrine and continues to have significant drops in her blood pressure with positional changes. Florinef was added to her regimen yesterday. She is also receiving IV fluids. Continue midodrine 10mg p.o. TID Continue florinef 0.1 mg p.o. daily KRYSTAL hose caution with transitioning from lying to sitting, sitting to standing. Orthostatic vital signs Qshift Subjective Date/time seen: 03/11/22 10:36 Cardiology follow up for orthostatic hypotension Feeling okay this morning. Did experience dizziness when she stood up for her orthostatic vital signs to be measured. No other complaints. Review of Systems Constitutional: Constitutional: Reports no additional constitutional complaints Eyes: Eyes: Reports no additional eye complaints ENT: Reports system reviewed and no additional complaints, except as documented Cardiovascular: Cardiovascular: Reports as per HPI Respiratory: Respiratory: Reports no additional respiratory complaints Gastrointestinal: Gastrointestinal: Reports no additional gastrointestinal complaints Musculoskeletal: Musculoskeletal: Reports no additional musculoskeletal complaints Integumentary/Breasts: Skin/Breast: Reports system reviewed and no additional complaints, except as docu Neurologic: Reports as per HPI Endocrine: Endocrine: Reports no additional endocrine complaints Hematologic/Lymphatic: Hematologic/Lymphatic: Reports no additional hematologic/lymphatic complaints Allergic/Immunologic: Allergic/Immunologic: Reports no additional allergic/immunologic complaints Exam Const: General: comfortable and no acute distress Other: Very pleasant lady appearing her stated age no distress she is in bed with the head of the bed elevated about 45? HENMT: Mouth: Yes moist mucous membranes Eyes: Sclera: sclerae normal Pupils: Equal, round and reactive pupils present Neck: Neck: supple and no JVD Resp: Effort & Inspection: normal respiratory effort Auscultation: clear to auscultation bilaterally Cardio: Rate: regular rate Rhythm: regular rhythm Other: No murmur no gallop GI: Auscultation: normal bowel sounds Skin: General skin exam: normal color Neuro: Cranial nerves: Yes Equal, round and reactive pupils present Other: Normal cognition alert and oriented x3 Extrem: General: normal to inspection Other: No edema adequate distal pulses Objective Data Vital Signs Vital Signs: Vital Signs - 24 hr 03/10/22 12:00 03/10/22 13:15 03/10/22 13:49 Temperature Pulse Rate 80 Respiratory Rate Blood Pressure 107/58 L 98/40 L Pulse Oximetry Oxygen Delivery 03/10/22 13:49 03/10/22 14:00 03/10/22 16:00 Temperature 36.9 C Pulse Rate 73 74 Respiratory Rate 16 Blood Pressure 95/38 L 128/54 L Pulse Oximetry 97 Oxygen Delivery 03/10/22 20:00 03/11/22 00:00 03/11/22 04:00 Temperature Pulse Rate 75 66 65 Respiratory Rate Blood Pressure Pulse Oximetry Oxygen Delivery 03/10/22 20:00 03/10/22 22:00 03/11/22 08:58 Temperature 35.9 C L 36.6 C Pulse Rate 71 67 Respiratory Rate 18 19 Blood Pressure 91/72 L 130/44 L Pulse Oximetry 97 96 Oxygen Delivery Room Air 03/11/22 08:00 Temperature Pulse Rate 66 Respiratory Rate Blood Pressure Pulse Oximetry Oxygen Delivery Intake/Output Intake/Output: Intake & Output 03/08/22 03/09/22 03/10/22 03/11/22 23:59 23:59 23:59 23:59 Intake Total 1480 4270 1400 Output Total 350 2500 1550 Balance 1130 1770 -150 Meds/Results Medications: Active Medications Generic Name Dose Route Start Last Admin Trade Name Freq PRN Reason Stop Dose Admin Dextrose 12.5 gm 03/09/22 12:49 Dextrose 50% 25 Gm/50 Ml
[2022-03-11 11:31] LABS: Glucose Point of Care 225 mg/dl (65-105)
--- NOTE | 2022-03-11 14:13 | PM.IMPN ---
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 - Recently started on midodrine, however unfortunately symptoms have persisted. Continue midodrine 10 mg t.i.d. - Continue Florinef 0.1 mg daily. Started on 03/10 per Cardiology recommendations - Appreciate cardiology consultation - Continue to monitor orthostatics Q shift - Thigh-high Kavon hose - Fall precautions implemented - Reminder to rise and change positions slowly. 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 Blood sugars poorly controlled at this time - Patient reports concerns for insulin pump malfunction - Evaluated by unit educator. Concern for kink in cannula vs bad insulin - Insulin pump discontinued on 03/10, transitioned to basal/bolus system - Continue Lantus 18 units qHS - 6 units Novolog with meals for carb correction - Moderate dose sliding scale insulin - Diabetic carb consistent diet - Anion gap normal, no evidence of DKA. - Blood sugars improved today 225-230. - Plan to resume pump with hospital insulin when her daughter can arrive to bring supply replacements (3) Chronic kidney disease, stage III (moderate): Code(s): N18.3 - Chronic kidney disease, stage 3 (moderate) Status: Chronic Assessment and Plan: Renal function reviewed and appears consistent with baseline - Monitor BMP (4) Symptom of bladder outlet obstruction: Code(s): N32.0 - Bladder-neck obstruction Status: Suspected Assessment and Plan: Patient reports urinary dribbling - Recently completed 14 day course of Flomax with symptomatic improvement - Patient had outpatient urology appt scheduled for today which she will not be able to attend due to hospitalization - Will hold Flomax at this time due to hypotension - Monitor urine output closely (5) Neck pain: Code(s): M54.2 - Cervicalgia Status: Acute Assessment and Plan: Resolved. - Cervical spine CT showed moderate cervical spondylosis with no acute findings - Supportive care (6) Situational anxiety: Code(s): F41.8 - Other specified anxiety disorders Status: Acute Assessment and Plan: No acute issues at this time - PRN hydroxyzine Subjective Date/time seen: 03/11/22 14:13 Interval history: Date of service: 03/11/2022 Dee Gibson is a 76 year old female with history of type 1 diabetes mellitus maintained on insulin pump, multiple previous episodes of syncope felt to be related to orthostatic hypotension with recent admission about 2 weeks ago for same who is again seen in follow-up for multiple episodes of syncope at home felt to be secondary to orthostatic hypertension. She is feeling well today. She did have an episode of dizziness this morning upon standing while her orthostatic vital signs remaining taken. Later in the morning, she did get up with occupational therapy and took about 2 steps to the bedside commode and back to bed. She did not have any dizziness with this. She does not have any urinary symptoms. States her last bowel movement was Thursday. She endorses mild acid reflux symptoms. Denies shortness of breath, cough, chest pain, palpitations. No abdominal pain, nausea, vomiting. Her appetite is good. Review of Systems Review of Systems: All systems reviewed & are unremarkable except as noted in HPI and bel
[2022-03-11 16:16] LABS: Glucose Point of Care 117 mg/dl (65-105)
[2022-03-11] MEDS: INSULIN GLARGINE (*BKC) 100 UNITS/ML 18 UNITS SUB-Q (21:32)
[2022-03-11 22:17] LABS: Glucose Point of Care 138 mg/dl (65-105)
[2022-03-12] VITALS (13 sets, daily range): BP systolic 53–145; BP diastolic 30–65; PULSE 66–83; RESP 16–18; TEMP 35.9–36.5; O2SAT 92–98
[2022-03-12 07:22] LABS: Glucose Point of Care 122 mg/dl (65-105)
[2022-03-12 07:59] LABS: Hematocrit 37.4 % (37.0-47.0); Hemoglobin 12.3 g/dL (12.0-15.0); Mean Corpuscular HGB Conc 32.9 g/dl (32-36); Mean Corpuscular Hemoglobin 29.2 pg (26-34); Mean Corpuscular Volume 88.8 fl (80-100); Mean Platelet Volume 9.7 fl (7.4-10.4); Platelet Count Result 220 k/mm3 (150-375); Red Blood Count 4.21 M/mm3 (4.2-5.4); Red Cell Distribution Width 14.3 % (11.5-14.5); White Blood Count 7.8 K/mm3 (4.5-10.0)
[2022-03-12] MEDS: INSULIN ASPART (*BKC) 100 UNITS/ML 6 UNITS SUB-Q ×3 (08:04→16:52)
[2022-03-12] MEDS: MIDODRINE HCL 10 MG TABLET PO ×3 (08:08→16:53)
[2022-03-12] MEDS: SACCHAROMYCES BOULARDII 250 MG CAPSULE PO (08:08)
[2022-03-12] MEDS: METOCLOPRAMIDE HCL 10 MG TABLET PO (08:08)
[2022-03-12] MEDS: FLUDROCORTISONE ACETATE 0.1 MG TABLET PO (08:08)
[2022-03-12] MEDS: PANTOPRAZOLE 40 MG TABLET PO (08:08)
[2022-03-12] MEDS: CHOLECALCIFEROL 1,000 UNITS TABLET 4000 UNITS PO (08:08)
[2022-03-12 08:13] LABS: Anion Gap 7 mmol/L (8-16); Blood Urea Nitrogen 18 mg/dL (7-17); Calcium 7.6 mg/dL (8.4-10.2); Carbon Dioxide 29 mmol/L (22-30); Chloride 102 mmol/L (98-107); Estimated CRCL calculation 44 ml/min; Estimated Glomerular Filt Rate > 60; Glucose 106 mg/dL (65-110); Potassium 3.3 mmol/L (3.4-5.0); Sodium 138 mmol/L (137-145)
[2022-03-12] MEDS: POTASSIUM CHLORIDE 20 MEQ PACKET (FOR LIQUID) PO (08:48)
--- NOTE | 2022-03-12 09:45 | PM.PNCARD ---
Progress Note: A&P Assessment and Plan (1) Autonomic orthostatic hypotension: Code(s): I95.1 - Orthostatic hypotension Status: Acute Assessment and Plan: Problematic orthostatic hypotension resulting in recurrent syncope. She is on midodrine and continues to have significant drops in her blood pressure with positional changes. Florinef was added to her regimen yesterday. Continue midodrine 10mg p.o. TID Continue florinef 0.1 mg p.o. daily caution with transitioning from lying to sitting, sitting to standing. Orthostatic vital signs Qshift She is still markedly orthostatic. Continue midodrine, Florinef. She should have Compression stockings for lower extremities. Consider abdominal binder. Liberalize salt intake. Also advised to push oral fluid intake especially things that contain electrolytes such as Gatorade. May even need to prescribe salt tablets +/-pseudoephedrine if continues to be a problem. (2) Hypokalemia: Code(s): E87.6 - Hypokalemia Status: Acute Assessment and Plan: KCL 40 mg p.o. x1 Subjective Date/time seen: 03/12/22 09:45 Interval history: Dee Gibson is a 76 year old female with history of type 1 diabetes mellitus maintained on insulin pump, multiple previous episodes of syncope felt to be related to orthostatic hypotension with recent admission about 2 weeks ago for same who is again seen in follow-up for multiple episodes of syncope at home felt to be secondary to orthostatic hypertension. Date of service 03/12/2022: Still has some dizziness and near syncope upon standing up. Blood pressure this morning dropped from 107 systolic down to 53 systolic Review of Systems Constitutional: Constitutional: Reports no additional constitutional complaints Eyes: Eyes: Reports no additional eye complaints ENT: Reports system reviewed and no additional complaints, except as documented Cardiovascular: Cardiovascular: Reports as per HPI Respiratory: Respiratory: Reports no additional respiratory complaints Gastrointestinal: Gastrointestinal: Reports no additional gastrointestinal complaints Musculoskeletal: Musculoskeletal: Reports no additional musculoskeletal complaints Integumentary/Breasts: Skin/Breast: Reports system reviewed and no additional complaints, except as docu Neurologic: Reports as per HPI Endocrine: Endocrine: Reports no additional endocrine complaints Hematologic/Lymphatic: Hematologic/Lymphatic: Reports no additional hematologic/lymphatic complaints Allergic/Immunologic: Allergic/Immunologic: Reports no additional allergic/immunologic complaints Exam Const: General: comfortable and no acute distress Other: Very pleasant lady appearing her stated age no distress she is in bed with the head of the bed elevated about 45? HENMT: Mouth: Yes moist mucous membranes Eyes: Sclera: sclerae normal Pupils: Equal, round and reactive pupils present Neck: Neck: supple and no JVD Resp: Effort & Inspection: normal respiratory effort Auscultation: clear to auscultation bilaterally Cardio: Rate: regular rate Rhythm: regular rhythm Other: No murmur no gallop GI: Auscultation: normal bowel sounds Skin: General skin exam: normal color Neuro: Speech: normal speech Other: Normal cognition alert and oriented x3 Extrem: General: normal to inspection Other: No edema adequate distal pulses Objective Data Vital Signs Vital Signs: Vital Signs - 24 hr 03/11/22 11:11 03/11/22 13:16 03/11/22 12:00 Temperature 36.3 C L Pulse Rate 66 68 Respiratory Rate 19 Blood Pressure 113/56 L Pulse Oximetry 95 98 Oxygen Delivery Room Air 03/11/22 16:00 03/11/22 22:20 03/11/22 22:15 Temperature 36.4 C Pulse Rate 63 70 Respiratory Rate 18 Blood Pressure 161/54 H 116/52 L Pulse Oximetry 94 Oxygen Delivery 03/11/22 22:18 03/11/22 22:20 03/11/22 20:00 Temperature Pulse Rate 62 Respiratory Rate
[2022-03-12 11:30] LABS: Glucose Point of Care 121 mg/dl (65-105)
--- NOTE | 2022-03-12 14:18 | PM.IMPN ---
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 - Recently started on midodrine, however unfortunately symptoms have persisted. Continue midodrine 10 mg t.i.d. - Continue Florinef 0.1 mg daily. Started on 03/10 per Cardiology recommendations - Appreciate cardiology consultation - Continue to monitor orthostatics Q shift - Thigh-high Kavon hose to be worn at all times - Fall precautions implemented - Reminder to rise and change positions slowly. 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 Blood sugars well controlled today - On presentation blood sugars poorly controlled and patient reported concerns for insulin pump malfunction - Evaluated by community educator. Concern for kink in cannula vs bad insulin - Insulin pump discontinued on 03/10, transitioned to basal/bolus system - Continue Lantus 18 units qHS - 6 units Novolog with meals for carb correction - Moderate dose sliding scale insulin - Diabetic carb consistent diet - Patients daughter will be bringing supplies for new pump site today. Will fill with hospital insulin as patients home insulin may have been bad, causing hyperglycemia. Transition back to pump when all supplies are pump site are set up (3) Chronic kidney disease, stage III (moderate): Code(s): N18.3 - Chronic kidney disease, stage 3 (moderate) Status: Chronic Assessment and Plan: Renal function reviewed and appears consistent with baseline - Monitor BMP (4) Symptom of bladder outlet obstruction: Code(s): N32.0 - Bladder-neck obstruction Status: Suspected Assessment and Plan: Patient reports urinary dribbling - Recently completed 14 day course of Flomax with symptomatic improvement - Patient had outpatient urology appt scheduled for 03/11 which she was not able to attend due to hospitalization - Flomax discontinue due to hypotension - Urine output is adequate. Continue to monitor (5) Neck pain: Code(s): M54.2 - Cervicalgia Status: Resolved Assessment and Plan: Resolved. - Cervical spine CT showed moderate cervical spondylosis with no acute findings - Supportive care (6) Situational anxiety: Code(s): F41.8 - Other specified anxiety disorders Status: Acute Assessment and Plan: No acute issues at this time - PRN hydroxyzine Subjective Date/time seen: 03/12/22 14:18 Interval history: Date of service: 03/12/2022 Dee Gibson is a 76 year old female with history of type 1 diabetes mellitus maintained on insulin pump, multiple previous episodes of syncope felt to be related to orthostatic hypotension with recent admission about 2 weeks ago for same who is again seen in follow-up for multiple episodes of syncope at home felt to be secondary to orthostatic hypertension. She feels better today. She was feeling dizzy this morning but states that her dizziness has improved somewhat after having a bowel movement. She does admit that she was straining to have a bowel movement and this caused her to feel very dizzy while she was sitting on the toilet and she thought she might pass out. She is resting in bed comfortably. She is tolerating her diet. Her blood sugars have been better controlled today. She denies nausea, vomiting, fever, chills, abdomi
[2022-03-12 16:07] LABS: Glucose Point of Care 252 mg/dl (65-105)
[2022-03-12] MEDS: INSULIN ASPART (*BKC) 100 UNITS/ML SUB-Q (16:53)
[2022-03-12 21:30] LABS: Glucose Point of Care 144 mg/dl (65-105)
[2022-03-12] MEDS: INSULIN GLARGINE (*BKC) 100 UNITS/ML 18 UNITS SUB-Q (21:31)
[2022-03-13] VITALS (11 sets, daily range): BP systolic 102–156; BP diastolic 46–58; PULSE 68–75; RESP 18–22; TEMP 36.1–37.1; O2SAT 96–99
[2022-03-13 07:10] LABS: Hematocrit 38.5 % (37.0-47.0); Hemoglobin 12.4 g/dL (12.0-15.0); Mean Corpuscular HGB Conc 32.2 g/dl (32-36); Mean Corpuscular Hemoglobin 28.4 pg (26-34); Mean Corpuscular Volume 88.3 fl (80-100); Mean Platelet Volume 9.9 fl (7.4-10.4); Platelet Count Result 228 k/mm3 (150-375); Red Blood Count 4.36 M/mm3 (4.2-5.4); Red Cell Distribution Width 14.2 % (11.5-14.5); White Blood Count 8.4 K/mm3 (4.5-10.0)
[2022-03-13 07:24] LABS: Anion Gap 6 mmol/L (8-16); Blood Urea Nitrogen 19 mg/dL (7-17); Calcium 7.4 mg/dL (8.4-10.2); Carbon Dioxide 28 mmol/L (22-30); Chloride 104 mmol/L (98-107); Estimated CRCL calculation 40 ml/min; Estimated Glomerular Filt Rate 54; Glucose 67 mg/dL (65-110); Potassium 3.8 mmol/L (3.4-5.0); Sodium 138 mmol/L (137-145)
[2022-03-13 08:20] LABS: Glucose Point of Care 69 mg/dl (65-105)
[2022-03-13 09:10] LABS: Glucose Point of Care 166 mg/dl (65-105)
[2022-03-13] MEDS: INSULIN ASPART (*BKC) 100 UNITS/ML 6 UNITS SUB-Q ×3 (09:52→16:52)
[2022-03-13] MEDS: FLUDROCORTISONE ACETATE 0.1 MG TABLET PO (09:52)
[2022-03-13] MEDS: CHOLECALCIFEROL 1,000 UNITS TABLET 4000 UNITS PO (09:53)
[2022-03-13] MEDS: SACCHAROMYCES BOULARDII 250 MG CAPSULE PO (09:54)
[2022-03-13] MEDS: PANTOPRAZOLE 40 MG TABLET PO (09:54)
[2022-03-13] MEDS: MIDODRINE HCL 10 MG TABLET PO ×3 (09:54→16:50)
[2022-03-13] MEDS: METOCLOPRAMIDE HCL 10 MG TABLET PO (09:59)
--- NOTE | 2022-03-13 10:00 | PCCDE ---
diabetes education f/up: pt remains on basal bolus subq injections; pt is hoping to resume pump. Her daughter will be here around 5:30 today and will be available to help her fill her pump. Pt had questions about when she received last dose of Lantus and if she should receive subq correction doses while she is using pump. Answered all pt's questions. Called and Discussed with Quin recommendations to resume insulin pump this evening after daughter fills pump. Will need to enter insulin pump order set and discontinue all subq insulin orders. Also discussed plan with BRIAN Rose.
[2022-03-13 11:50] LABS: Glucose Point of Care 213 mg/dl (65-105)
--- NOTE | 2022-03-13 12:27 | PM.PNCARD ---
Progress Note: A&P Assessment and Plan (1) Autonomic orthostatic hypotension: Code(s): I95.1 - Orthostatic hypotension Status: Acute Assessment and Plan: Problematic orthostatic hypotension resulting in recurrent syncope. She is on midodrine and continues to have significant drops in her blood pressure with positional changes. Florinef was added to her regimen but she remains markedly orthostatic Continue midodrine 10mg p.o. TID Continue florinef 0.1 mg p.o. daily caution with transitioning from lying to sitting, sitting to standing. Orthostatic vital signs Qshift Abdominal binder Increase oral fluid intake Liberalize salt intake (2) Hypokalemia: Code(s): E87.6 - Hypokalemia Status: Acute Assessment and Plan: K+ 3.8 today. Subjective Date/time seen: 03/13/22 12:27 Cardiology follow up for orthostatic hypotension Interval history: She feels about the same today. Has only gotten out of bed to use the commode today. Didn't have any symptoms with that but she typically only becomes symptomatic after she has been walking for several steps. Review of Systems Constitutional: Constitutional: Reports no additional constitutional complaints Eyes: Eyes: Reports no additional eye complaints ENT: Reports system reviewed and no additional complaints, except as documented Cardiovascular: Cardiovascular: Reports as per HPI Respiratory: Respiratory: Reports no additional respiratory complaints Gastrointestinal: Gastrointestinal: Reports no additional gastrointestinal complaints Musculoskeletal: Musculoskeletal: Reports no additional musculoskeletal complaints Integumentary/Breasts: Skin/Breast: Reports system reviewed and no additional complaints, except as docu Neurologic: Reports as per HPI Endocrine: Endocrine: Reports no additional endocrine complaints Hematologic/Lymphatic: Hematologic/Lymphatic: Reports no additional hematologic/lymphatic complaints Allergic/Immunologic: Allergic/Immunologic: Reports no additional allergic/immunologic complaints Exam Const: General: comfortable and no acute distress Other: Very pleasant lady appearing her stated age no distress she is in bed with the head of the bed elevated about 45? HENMT: Mouth: Yes moist mucous membranes Eyes: Sclera: sclerae normal Pupils: Equal, round and reactive pupils present Neck: Neck: supple and no JVD Resp: Effort & Inspection: normal respiratory effort Auscultation: clear to auscultation bilaterally Cardio: Rate: regular rate Rhythm: regular rhythm Other: No murmur no gallop GI: Auscultation: normal bowel sounds Skin: General skin exam: normal color Neuro: Cranial nerves: Yes Equal, round and reactive pupils present Speech: normal speech Other: Normal cognition alert and oriented x3 Extrem: General: normal to inspection Other: No edema adequate distal pulses Objective Data Vital Signs Vital Signs: Vital Signs - 24 hr 03/12/22 14:00 03/12/22 16:00 03/12/22 21:32 Temperature 35.9 C L 36.5 C Pulse Rate 73 71 71 Respiratory Rate 16 18 Blood Pressure 145/65 H 110/42 L Pulse Oximetry 95 98 Oxygen Delivery 03/12/22 20:00 03/12/22 21:00 03/12/22 20:00 Temperature Pulse Rate 79 83 Respiratory Rate Blood Pressure 102/45 L 105/41 L Pulse Oximetry Oxygen Delivery Room Air 03/12/22 20:00 03/13/22 01:57 03/12/22 22:43 Temperature Pulse Rate 69 68 Respiratory Rate Blood Pressure Pulse Oximetry 98 Oxygen Delivery Room Air 03/13/22 06:00 03/13/22 08:00 03/13/22 08:00 Temperature 37.1 C Pulse Rate 71 69 Respiratory Rate 18 Blood Pressure 102/46 L Pulse Oximetry 99 Oxygen Delivery Room Air Intake/Output Intake/Output: Intake & Output 03/10/22 03/11/22 03/12/22 03/13/22 23:59 23:59 23:59 23:59 Intake Total 4270 2280 2590 1030 Output Total 2500 2850 3300 550 Balance 7251 -158 -333 182 Meds/Result
[2022-03-13] MEDS: INSULIN ASPART (*BKC) 100 UNITS/ML SUB-Q (13:16)
[2022-03-13 16:51] LABS: Glucose Point of Care 196 mg/dl (65-105)
--- NOTE | 2022-03-13 16:55 | PM.IMPN ---
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 - Recently started on midodrine, however unfortunately symptoms have persisted. Continue midodrine 10 mg t.i.d. - Continue Florinef 0.1 mg daily. Started on 03/10 per Cardiology recommendations - Appreciate cardiology consultation - Continue to monitor orthostatics Q shift - Thigh-high Kavon hose to be worn at all times - Start abdominal binder - Fall precautions implemented - Reminder to rise and change positions slowly. 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 Blood sugars well controlled today - On presentation blood sugars poorly controlled and patient reported concerns for insulin pump malfunction - Evaluated by radio adjuster. Concern for kink in cannula vs bad insulin - Insulin pump discontinued on 03/10, transitioned to basal/bolus system - Lantus 18 units qHS - 6 units Novolog with meals - Moderate dose sliding scale insulin - Diabetic carb consistent diet Patients daughter bringing supplies for new pump site this evening. Restart insulin pump. Lantus, novolog, and SSI orders to be discontinued once pump is restarted. (3) Chronic kidney disease, stage III (moderate): Code(s): N18.3 - Chronic kidney disease, stage 3 (moderate) Status: Chronic Assessment and Plan: Renal function reviewed and appears consistent with baseline - Monitor BMP (4) Symptom of bladder outlet obstruction: Code(s): N32.0 - Bladder-neck obstruction Status: Suspected Assessment and Plan: Patient reports urinary dribbling - Recently completed 14 day course of Flomax with symptomatic improvement - Patient had outpatient urology appt scheduled for 03/11 which she was not able to attend due to hospitalization - Flomax discontinued due to hypotension - Urine output is adequate. Continue to monitor (5) Neck pain: Code(s): M54.2 - Cervicalgia Status: Resolved Assessment and Plan: Resolved. - Cervical spine CT showed moderate cervical spondylosis with no acute findings - Supportive care (6) Situational anxiety: Code(s): F41.8 - Other specified anxiety disorders Status: Acute Assessment and Plan: No acute issues at this time - PRN hydroxyzine Subjective Date/time seen: 03/13/22 16:55 Interval history: Date of service: 03/13/2022 Dee Gibson is a 76 year old female with history of type 1 diabetes mellitus maintained on insulin pump, multiple previous episodes of syncope felt to be related to orthostatic hypotension with recent admission about 2 weeks ago for same who is again seen in follow-up for multiple episodes of syncope at home felt to be secondary to orthostatic hypertension. She feels better today. She states today when she stood up for about 1 or 2 minutes to have her blood pressure checked she began to feel a little bit dizzy. Otherwise she has been asymptomatic for most the day. She is able to get up and pivot to the commode without any dizziness or lightheadedness. Denies shortness of breath, cough, chest pain, palpitations. Her appetite is good. Denies nausea or vomiting. Review of Systems Review of Systems: All systems reviewed & are unremarkable except as noted in HPI and below Exam Narrative: General: well-nourished, well-appearing 76-year-old female, sitting up in bed, comfortable, NARD Neuro:
[2022-03-13] MEDS: HOME MEDICATION INSULIN PUMP 1 EACH XX (19:39)
--- NOTE | 2022-03-13 20:27 | PC.NURSE ---
veterans adviser accompanied administrative underwriter to discuss changes to care as ordered by the db2 developer. Patient refuses to accept administration of lantus and mod-dosing SSI as ordered per Dr. Chi. Patient is adamant that she utilize her own pump per the discussion with the clinical nurse educator and previous provider from the day team. Dr. Chi updated.
[2022-03-13 22:04] LABS: Glucose Point of Care 96 mg/dl (65-105)
[2022-03-14] VITALS (13 sets, daily range): BP systolic 103–151; BP diastolic 40–50; PULSE 64–78; RESP 17–20; TEMP 36.2–37.2; O2SAT 93–98
[2022-03-14] MEDS: GLUCOSE ORAL GEL 15 GM OF GLUCSE IN 37.5 GM TUBE PO (00:30)
--- NOTE | 2022-03-14 00:31 | PC.NURSE ---
Bedside glucose demonstrates 40. Patient ingested 4oz of juice and then registered at 49. Second treatment provided was the glucose gel. Repeat glucose level 76 Patient home device registered at 60, then 69 post juice. Repeat glucose level post glucose gel read 81
[2022-03-14 00:55] LABS: Glucose Point of Care 76 mg/dl (65-105)
[2022-03-14 00:55] LABS: Glucose Point of Care 40 mg/dl (65-105)
[2022-03-14 00:55] LABS: Glucose Point of Care 49 mg/dl (65-105)
[2022-03-14 07:40] LABS: Glucose Point of Care 90 mg/dl (65-105)
[2022-03-14] MEDS: CHOLECALCIFEROL 1,000 UNITS TABLET 4000 UNITS PO (08:25)
[2022-03-14] MEDS: MIDODRINE HCL 10 MG TABLET PO ×3 (08:26→17:15)
[2022-03-14] MEDS: SACCHAROMYCES BOULARDII 250 MG CAPSULE PO (08:26)
[2022-03-14] MEDS: PANTOPRAZOLE 40 MG TABLET PO (08:26)
[2022-03-14] MEDS: FLUDROCORTISONE ACETATE 0.1 MG TABLET PO (08:26)
[2022-03-14 09:27] LABS: Anion Gap 6 mmol/L (8-16); Blood Urea Nitrogen 15 mg/dL (7-17); Calcium 8.3 mg/dL (8.4-10.2); Carbon Dioxide 28 mmol/L (22-30); Chloride 102 mmol/L (98-107); Estimated CRCL calculation 44 ml/min; Estimated Glomerular Filt Rate > 60; Glucose 96 mg/dL (65-110); Potassium 3.4 mmol/L (3.4-5.0); Sodium 136 mmol/L (137-145)
--- NOTE | 2022-03-14 09:28 | PM.PNCARD ---
Progress Note: A&P Assessment and Plan (1) Autonomic orthostatic hypotension: Code(s): I95.1 - Orthostatic hypotension Status: Acute Assessment and Plan: Problematic orthostatic hypotension resulting in recurrent syncope. She is on midodrine and continues to have significant drops in her blood pressure with positional changes. Florinef was added to her regimen but she remains markedly orthostatic Continue midodrine 10mg p.o. TID Continue florinef 0.1 mg p.o. daily caution with transitioning from lying to sitting, sitting to standing. Orthostatic vital signs Qshift Abdominal binder Increase oral fluid intake Liberalize salt intake (2) Hypokalemia: Code(s): E87.6 - Hypokalemia Status: Acute Assessment and Plan: Resolved Subjective Date/time seen: 03/14/22 09:28 Cardiology follow up for orthostatic hypotension No complaints today. She has not been out of bed yet this morning. She is eager to go home. Review of Systems Constitutional: Constitutional: Reports no additional constitutional complaints Eyes: Eyes: Reports no additional eye complaints ENT: Reports system reviewed and no additional complaints, except as documented Cardiovascular: Cardiovascular: Reports as per HPI Respiratory: Respiratory: Reports no additional respiratory complaints Gastrointestinal: Gastrointestinal: Reports no additional gastrointestinal complaints Musculoskeletal: Musculoskeletal: Reports no additional musculoskeletal complaints Integumentary/Breasts: Skin/Breast: Reports system reviewed and no additional complaints, except as docu Neurologic: Reports as per HPI Endocrine: Endocrine: Reports no additional endocrine complaints Hematologic/Lymphatic: Hematologic/Lymphatic: Reports no additional hematologic/lymphatic complaints Allergic/Immunologic: Allergic/Immunologic: Reports no additional allergic/immunologic complaints Exam Const: General: comfortable and no acute distress Other: Very pleasant lady appearing her stated age no distress she is in bed with the head of the bed elevated about 45? HENMT: Mouth: Yes moist mucous membranes Eyes: Sclera: sclerae normal Pupils: Equal, round and reactive pupils present Neck: Neck: supple and no JVD Resp: Effort & Inspection: normal respiratory effort Auscultation: clear to auscultation bilaterally Cardio: Rate: regular rate Rhythm: regular rhythm Other: No murmur no gallop GI: Auscultation: normal bowel sounds Skin: General skin exam: normal color Neuro: Cranial nerves: Yes Equal, round and reactive pupils present Speech: normal speech Other: Normal cognition alert and oriented x3 Extrem: General: normal to inspection Other: No edema adequate distal pulses Objective Data Vital Signs Vital Signs: Vital Signs - 24 hr 03/13/22 14:00 03/13/22 12:00 03/13/22 16:00 Temperature 36.1 C L Pulse Rate 71 72 69 Respiratory Rate 22 H Blood Pressure 156/52 H Pulse Oximetry 97 Oxygen Delivery 03/13/22 21:57 03/13/22 22:03 03/13/22 22:04 Temperature 36.1 C L 36.1 C L 36.4 C Pulse Rate 69 69 68 Respiratory Rate 18 18 18 Blood Pressure 150/58 H 150/58 H 141/53 H Pulse Oximetry 97 97 96 Oxygen Delivery 03/13/22 22:05 03/13/22 20:00 03/13/22 20:00 Temperature 36.1 C L Pulse Rate 75 68 Respiratory Rate 18 Blood Pressure 125/52 L Pulse Oximetry 96 Oxygen Delivery Room Air 03/14/22 00:00 03/14/22 05:50 03/14/22 04:00 Temperature 36.2 C L Pulse Rate 72 66 67 Respiratory Rate 20 Blood Pressure 128/45 L Pulse Oximetry 98 Oxygen Delivery 03/14/22 08:30 Temperature Pulse Rate Respiratory Rate Blood Pressure Pulse Oximetry Oxygen Delivery Room Air Intake/Output Intake/Output: Intake & Output 03/11/22 03/12/22 03/13/22 03/14/22 23:59 23:59 23:59 23:59 Intake Total 2280 2590 2060 1110 Output Total 2850 3300 1000 1200 Balance -570 -710 1060 -
--- NOTE | 2022-03-14 11:04 | PM.IMPN ---
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 Continue midodrine 10 mg t.i.d. - Continue Florinef 0.1 mg daily. Started on 03/10 per Cardiology recommendations - Thigh-high Kavon hose to be worn at all times - Abdominal binder - Fall precautions - Reminder to rise and change positions slowly. - Encourage oral fluid intake - PT/OT - Orthostatics vital signs improved on 03/14 standing bp left arm 124/40. 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 Blood sugars well controlled today - On presentation blood sugars poorly controlled and patient reported concerns for insulin pump malfunction - Evaluated by staff educator. Concern for kink in cannula vs bad insulin - Insulin pump discontinued on 03/10, transitioned to basal/bolus system - Lantus 18 units qHS - 6 units Novolog with meals - Moderate dose sliding scale insulin - Diabetic carb consistent diet Patients daughter bringing supplies for new pump site this evening. Restart insulin pump. Lantus, novolog, and SSI orders to be discontinued once pump is restarted. (3) Chronic kidney disease, stage III (moderate): Code(s): N18.3 - Chronic kidney disease, stage 3 (moderate) Status: Chronic Assessment and Plan: Renal function reviewed and appears consistent with baseline - Monitor BMP (4) Symptom of bladder outlet obstruction: Code(s): N32.0 - Bladder-neck obstruction Status: Suspected Assessment and Plan: Patient reports urinary dribbling - Recently completed 14 day course of Flomax with symptomatic improvement - Patient had outpatient urology appt scheduled for 03/11 which she was not able to attend due to hospitalization - Flomax discontinued due to hypotension - Urine output is adequate. Continue to monitor (5) Neck pain: Code(s): M54.2 - Cervicalgia Status: Resolved Assessment and Plan: Resolved. - Cervical spine CT showed moderate cervical spondylosis with no acute findings - Supportive care (6) Situational anxiety: Code(s): F41.8 - Other specified anxiety disorders Status: Acute Assessment and Plan: No acute issues at this time - PRN hydroxyzine Subjective Date/time seen: 03/14/22 11:04 Review of Systems Review of Systems: All systems reviewed & are unremarkable except as noted in HPI and below Exam Narrative: General: well-nourished, well-appearing 76-year-old female, sitting up in bed, comfortable, NARD Neuro: awake, alert and oriented x4, speech clear, no focal neuro deficits noted HEENMT: normocephalic, atraumatic, EOMI, sclerae anicteric Respiratory: clear to auscultation bilaterally, nonlabored breathing Cardio: regular rate, regular rhythm with S1-S2 Abdomen: nondistended, normoactive bowel sounds, soft, nontender to palpation Extremities: no edema or erythema Skin: no rashes or lesions, warm and dry Psych: appropriate mood and affect, judgment and insight intact Objective Data Vital Signs Vital Signs: Vital Signs - 24 hr 03/13/22 14:00 03/13/22 12:00 03/13/22 16:00 Temperature 97.0 F L Pulse Rate 71 72 69 Respiratory Rate 22 H Blood Pressure 156/52 H Pulse Oximetry 97 Oxygen Delivery 03/13/22 21:57 03/13/22 22:03 03/13/22 22:04 Temperature 97.0 F L 97.0 F L 97.6 F Pulse Rate 69 69 68 Respiratory Rate 18 18 18 Blood Pressure 150/58 H 150/58 H 141/53 H Pulse Oximetry 97
[2022-03-14 11:31] LABS: Glucose Point of Care 64 mg/dl (65-105)
[2022-03-14 16:21] LABS: Glucose Point of Care 98 mg/dl (65-105)
--- NOTE | 2022-03-14 17:17 | PCCDE ---
diabetes f/up: pt resumed her insulin pump last evening. B 40, 0730 90, 1126 64, 1617 98 Separate phone calls to pt, RN and Dr Gusman Pt had given a correction dose last evening when she put her pump on so this may have contributed to the midnight hypoglycemia but she also states that she has nocturnal hypoglycemia about 4x/week at home. Pt sts she has endo appt on 03/20/22 (next ). Dr Gusman did not want to adjust pump settings at this time; provide HS snack and monitor. Called nurse and pt and made aware of need for snack. IF any further hypoglycemia then would recommend reducing basal rate from 0.75 units/hr at midnight by 20% to 0.60 units/hr.
[2022-03-14 21:43] LABS: Glucose Point of Care 159 mg/dl (65-105)
[2022-03-15] VITALS (13 sets, daily range): BP systolic 76–168; BP diastolic 44–50; PULSE 61–75; RESP 17–20; TEMP 36.3–36.9; O2SAT 95–97
[2022-03-15 06:20] LABS: Anion Gap 6 mmol/L (8-16); Blood Urea Nitrogen 16 mg/dL (7-17); Calcium 8.1 mg/dL (8.4-10.2); Carbon Dioxide 30 mmol/L (22-30); Chloride 102 mmol/L (98-107); Estimated CRCL calculation 40 ml/min; Estimated Glomerular Filt Rate 54; Glucose 120 mg/dL (65-110); Potassium 3.8 mmol/L (3.4-5.0); Sodium 138 mmol/L (137-145)
[2022-03-15 07:35] LABS: Glucose Point of Care 118 mg/dl (65-105)
[2022-03-15] MEDS: PANTOPRAZOLE 40 MG TABLET PO (08:10)
[2022-03-15] MEDS: SACCHAROMYCES BOULARDII 250 MG CAPSULE PO (08:10)
[2022-03-15] MEDS: FLUDROCORTISONE ACETATE 0.1 MG TABLET PO (08:10)
[2022-03-15] MEDS: MIDODRINE HCL 10 MG TABLET PO ×3 (08:10→16:37)
[2022-03-15] MEDS: CHOLECALCIFEROL 1,000 UNITS TABLET 4000 UNITS PO (08:10)
--- NOTE | 2022-03-15 10:21 | PM.IMPN ---
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 Continue midodrine 10 mg t.i.d. - Continue Florinef 0.1 mg daily. Started on 03/10 per Cardiology recommendations - Thigh-high Kavon hose to be worn at all times - Abdominal binder - Fall precautions - Reminder to rise and change positions slowly. 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 Blood sugars well controlled today - On presentation blood sugars poorly controlled and patient reported concerns for insulin pump malfunction - Evaluated by clinical document improvement educator. Concern for kink in cannula vs bad insulin - Insulin pump discontinued on 03/10, transitioned to basal/bolus system - Lantus 18 units qHS - 6 units Novolog with meals - Moderate dose sliding scale insulin - Diabetic carb consistent diet Patients daughter bringing supplies for new pump site this evening. Restart insulin pump. Lantus, novolog, and SSI orders to be discontinued once pump is restarted. (3) Chronic kidney disease, stage III (moderate): Code(s): N18.3 - Chronic kidney disease, stage 3 (moderate) Status: Chronic Assessment and Plan: Renal function reviewed and appears consistent with baseline - Monitor BMP (4) Symptom of bladder outlet obstruction: Code(s): N32.0 - Bladder-neck obstruction Status: Suspected Assessment and Plan: Patient reports urinary dribbling - Recently completed 14 day course of Flomax with symptomatic improvement - Patient had outpatient urology appt scheduled for 03/11 which she was not able to attend due to hospitalization - Flomax discontinued due to hypotension - Urine output is adequate. Continue to monitor (5) Neck pain: Code(s): M54.2 - Cervicalgia Status: Resolved Assessment and Plan: Resolved. - Cervical spine CT showed moderate cervical spondylosis with no acute findings - Supportive care (6) Situational anxiety: Code(s): F41.8 - Other specified anxiety disorders Status: Acute Assessment and Plan: No acute issues at this time - PRN hydroxyzine Subjective Date/time seen: 03/15/22 10:21 Very dizzy with standing today. Tolerated diet. Had bedtime snack last night. Blood sugar dropped to 60 for but not as low as previous night. Denied pain except for mild headache. No chest pain or shortness of breath abdominal pain. No GI seizures. No paresthesias or weakness. Review of Systems Review of Systems: All systems reviewed & are unremarkable except as noted in HPI and below Exam Narrative: General: well-nourished, well-appearing 76-year-old female, sitting up in bed, comfortable, NARD Neuro: awake, alert and oriented x4, speech clear, no focal neuro deficits noted HEENMT: normocephalic, atraumatic, EOMI, sclerae anicteric Respiratory: clear to auscultation bilaterally, nonlabored breathing Cardio: regular rate, regular rhythm with S1-S2 Abdomen: nondistended, normoactive bowel sounds, soft, nontender to palpation Extremities: no edema or erythema Skin: no rashes or lesions, warm and dry Psych: appropriate mood and affect, judgment and insight intact BP left arm sitting 92/32, standing 62/30 with symptoms Objective Data Vital Signs Vital Signs: Vital Signs - 24 hr 03/14/22 12:00 03/14/22 13:52 03/14/22 13:53 Temperature 97.5 F L 97.5 F
[2022-03-15] MEDS: SODIUM CHLORIDE 1 GM TABLET PO ×2 (12:06→16:36)
[2022-03-15 16:40] LABS: Glucose Point of Care 142 mg/dl (65-105)
--- NOTE | 2022-03-15 19:06 | PM.PNCARD ---
Progress Note: A&P Assessment and Plan (1) Autonomic orthostatic hypotension: Code(s): I95.1 - Orthostatic hypotension Status: Acute Assessment and Plan: Problematic orthostatic hypotension resulting in recurrent syncope. She is on midodrine and Florinef, and continues to have significant drops in her blood pressure with positional changes. Continue midodrine 10mg p.o. TID Continue florinef 0.1 mg p.o. daily Sodium chloride 1 g t.i.d. started. caution with transitioning from lying to sitting, sitting to standing. Abdominal binder Increase oral fluid intake Encouraged movement and muscle contraction which may help improve her preload and cardiac output Encouraged physical therapy Subjective Date/time seen: Cardiology follow up for orthostatic hypotension . Taking midodrine 10 mg t.i.d. Florinef 0.1 mg added 03/10/2022. Sodium chloride 1 g t.i.d. added 03/15/2022. 03/14/2022:No complaints today.? She has not been out of bed yet this morning.? She is eager to go home.? 03/15/22: Reports little to no prodrome when she is hypotensive or with her falls. Wonders if her chronic back pain may be contributing. Today blood pressure 116/47 mmHg supine, 109/50 sitting, and 76/50 standing. Review of Systems Review of Systems: Worked with physical therapy yesterday, walk back and forth in her room with no particular problems. No chest pain or shortness of breath. Minimal to no dizziness with her orthostatic hypotension. Has been on tamsulosin for urinary retention prescribed 2 weeks ago, which initially seemed to help but now no longer does. Does not note any association of her hypotension with large meals. Wonders if she needs to live in assisted living. Exam Const: General: cooperative, healthy appearing and comfortable; No confusion Orientation/consciousness: oriented to person, patient oriented x3 and No confusion Other: Very pleasant, chatty, lots of questions. HENMT: Mouth: Yes moist mucous membranes Eyes: EOM: EOMs intact bilaterally Resp: Effort & Inspection: normal respiratory effort Auscultation: clear to auscultation bilaterally Cardio: Rate: regular rate Rhythm: regular rhythm GI: Inspection: normal to inspection GI Palp: No abdominal tenderness Skin: General skin exam: no rashes or lesions noted Neuro: General: oriented to person, patient oriented x3 and No confusion Extrem: Right lower extremity: no edema Left lower extremity: no edema Psych: Appearance: grossly normal Mental Status: mental status grossly normal Objective Data Vital Signs Vital Signs: Vital Signs - 24 hr 03/14/22 22:00 03/14/22 20:00 03/14/22 20:05 Temperature 98.4 F 98.9 F 98.3 F Pulse Rate 70 72 66 Respiratory Rate 18 18 17 Blood Pressure 115/44 L 113/41 L 151/47 H Pulse Oximetry 95 96 93 Oxygen Delivery 03/14/22 20:10 03/14/22 20:00 03/14/22 20:00 Temperature 98.4 F Pulse Rate 70 65 Respiratory Rate 18 Blood Pressure 115/44 L Pulse Oximetry 95 Oxygen Delivery Room Air 03/15/22 00:00 03/15/22 04:00 03/15/22 05:47 Temperature 98.5 F Pulse Rate 75 61 66 Respiratory Rate 17 Blood Pressure 103/46 L Pulse Oximetry 96 Oxygen Delivery 03/15/22 08:25 03/15/22 08:00 03/15/22 14:00 Temperature 97.3 F L Pulse Rate 74 66 Respiratory Rate 20 Blood Pressure 116/47 L Pulse Oximetry 95 Oxygen Delivery Room Air 03/15/22 08:00 03/15/22 14:04 03/15/22 14:05 Temperature 97.3 F L 97.5 F L 98.2 F Pulse Rate 66 66 74 Respiratory Rate 20 20 20 Blood Pressure 116/47 L 109/50 L 76/50 L Pulse Oximetry 95 95 97 Oxygen Delivery 03/15/22 12:00 03/15/22 16:00 Temperature Pulse Rate 66 65 Respiratory Rate Blood Pressure Pulse Oximetry Oxygen Delivery Intake/Output Intake/Output: Intake & Output 03/12/22 03/13/22 03/14/22 03/15/22 23:59 23:59 23:59 23:59 Intake Total 2590 2060 2790 600 Output Total 3300 1000 3200 Ba
[2022-03-15 20:59] LABS: Glucose Point of Care 178 mg/dl (65-105)
[2022-03-16] VITALS (10 sets, daily range): BP systolic 106–156; BP diastolic 40–78; PULSE 62–70; RESP 18–20; TEMP 36–36.6; O2SAT 94–98
[2022-03-16 06:28] LABS: Anion Gap 8 mmol/L (8-16); Blood Urea Nitrogen 19 mg/dL (7-17); Calcium 8.3 mg/dL (8.4-10.2); Carbon Dioxide 29 mmol/L (22-30); Chloride 98 mmol/L (98-107); Estimated CRCL calculation 40 ml/min; Estimated Glomerular Filt Rate 54; Glucose 185 mg/dL (65-110); Potassium 3.7 mmol/L (3.4-5.0); Sodium 135 mmol/L (137-145)
[2022-03-16 07:59] LABS: Glucose Point of Care 112 mg/dl (65-105)
[2022-03-16 07:59] LABS: Glucose Point of Care 210 mg/dl (65-105)
[2022-03-16] MEDS: SODIUM CHLORIDE 1 GM TABLET PO ×3 (08:52→17:16)
[2022-03-16] MEDS: FLUDROCORTISONE ACETATE 0.1 MG TABLET PO (08:52)
[2022-03-16] MEDS: CHOLECALCIFEROL 1,000 UNITS TABLET 4000 UNITS PO (08:53)
[2022-03-16] MEDS: SACCHAROMYCES BOULARDII 250 MG CAPSULE PO (08:53)
[2022-03-16] MEDS: MIDODRINE HCL 10 MG TABLET PO ×3 (08:53→17:16)
[2022-03-16] MEDS: PANTOPRAZOLE 40 MG TABLET PO (08:53)
[2022-03-16 11:29] LABS: Glucose Point of Care 191 mg/dl (65-105)
--- NOTE | 2022-03-16 11:40 | PM.IMPN ---
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 - Continue Florinef 0.1 mg daily. Started on 03/10 per Cardiology recommendations - Thigh-high Kavon hose to be worn at all times - Abdominal binder - Fall precautions - Reminder to rise and change positions slowly. 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 Blood sugars well controlled on home insulin pump - Pump refilled by supplies brought in by daughter (3) Chronic kidney disease, stage III (moderate): Code(s): N18.3 - Chronic kidney disease, stage 3 (moderate) Status: Chronic Assessment and Plan: Renal function reviewed and appears consistent with baseline - Monitor BMP (4) Symptom of bladder outlet obstruction: Code(s): N32.0 - Bladder-neck obstruction Status: Suspected Assessment and Plan: Patient reports urinary dribbling - Recently completed 14 day course of Flomax with symptomatic improvement - Patient had outpatient urology appt scheduled for 03/11 which she was not able to attend due to hospitalization - Flomax discontinued due to hypotension - Urine output is adequate. Continue to monitor (5) Neck pain: Code(s): M54.2 - Cervicalgia Status: Resolved Assessment and Plan: Resolved. - Cervical spine CT showed moderate cervical spondylosis with no acute findings - Supportive care (6) Situational anxiety: Code(s): F41.8 - Other specified anxiety disorders Status: Acute Assessment and Plan: No acute issues at this time - PRN hydroxyzine Plan Anticipate patient will need rehab versus SNF at discharge for safety until orthostatic hypotension symptoms improved DVT prophylaxis with SCDs GI prophylaxis not indicated Code status full code Subjective Date/time seen: 03/16/22 11:40 Interval history: Patient still with dizziness upon sitting or standing. Patient states she is unable to walk more than 8-12 steps without passing out or feeling like she is going to. No overnight events noted. No chest pain or shortness of breath. No nausea, vomiting or diarrhea. No fevers or chills. Review of Systems Review of Systems: 12 point review of systems was assessed and was negative except as noted in the HPI Exam Narrative: General: No acute distress, alert and oriented per baseline HEENT: Atraumatic, normocephalic, mucous membranes moist CV: Regular rate and rhythm, S1, S2 Lungs: Clear to auscultation bilaterally, no rales or crackles noted, no wheezes, good air entry Abdomen: Soft, nontender, nondistended Extremities: Normal to inspection Skin: No rashes noted, no lesions or wounds seen Psych: Euthymic, normal affect Objective Data Vital Signs Vital Signs: Vital Signs - 24 hr 03/15/22 14:00 03/15/22 14:04 03/15/22 14:05 Temperature 97.3 F L 97.5 F L 98.2 F Pulse Rate 66 66 74 Respiratory Rate 20 20 20 Blood Pressure 116/47 L 109/50 L 76/50 L Pulse Oximetry 95 95 97 Oxygen Delivery 03/15/22 12:00 03/15/22 16:00 03/15/22 19:27 Temperature 97.8 F Pulse Rate 66 65 67 Respiratory Rate 17 Blood Pressure 168/48 H Pulse Oximetry 95 Oxygen Delivery 03/15/22 20:00 03/15/22 20:16 03/15/22 20:16 Temperature 97.8 F Pulse Rate 67 Respiratory Rate 17 Blood Pressure 168/48 H 129/44 L 124/44 L Pulse Oximetr
--- NOTE | 2022-03-16 14:05 | PM.PNCARD ---
Progress Note: A&P Assessment and Plan (1) Autonomic orthostatic hypotension: Code(s): I95.1 - Orthostatic hypotension Status: Acute Assessment and Plan: Problematic orthostatic hypotension resulting in recurrent syncope.? She is on midodrine and Florinef, and continues to have significant drops in her blood pressure with positional changes.? Continue midodrine 10mg p.o. TID -- discussed risk of supine HTN Continue florinef 0.1 mg p.o. daily Continue Sodium chloride 1 g t.i.d. caution with transitioning from lying to sitting, sitting to standing.? Abdominal binder Discussed types of compression stockings and compression pantyhose Increase oral fluid and sodium intake Encouraged movement and muscle contraction which may help improve her preload and cardiac output Encouraged physical therapy, upright posture and exercise. Often patients with orthostatic hypotension do better with supine exercise such as floor exercises, chair exercise, or recumbent bike etc rather than treadmill etc.. Patient is is very limited by her arthritis also. Discussed avoidance of large meals and high carb meals. Might get a Smart Watch to check BP when upright, since pt often has little to no prodrome. I do not know how accurate these watches are to type blood pressure particularly in the low end range. Overall seems to be improving. Subjective Date/time seen: Cardiology follow up for orthostatic hypotension .? Taking midodrine 10 mg t.i.d.? ? Florinef 0.1 mg added 03/10/2022.? Sodium chloride 1 g t.i.d. added 03/15/2022. 03/14/2022:No complaints today.? She has not been out of bed yet this morning.? She is eager to go home.? 03/15/22:? Reports little to no prodrome when she is hypotensive or with her falls.? Wonders if her chronic back pain may be contributing.? Today blood pressure 116/47 mmHg supine,? 109/50 sitting, and 76/50 standing. 03/16/22 14:05: Orthostatics checked last pm were good. Reports mild orthostasis today, associated with some dizziness, but not yet posted in EMR. Set up in chair for 3 or 4 hours with no difficulties. Review of Systems Review of Systems: No chest pain or shortness of breath. Some lightheadedness while standing. No edema or abdominal problems. Exam Const: General: cooperative, healthy appearing and comfortable; No confusion Orientation/consciousness: oriented to person, patient oriented x3 and No confusion Other: Very pleasant, chatty, lots of questions. HENMT: Mouth: Yes moist mucous membranes Eyes: EOM: EOMs intact bilaterally Resp: Effort & Inspection: normal respiratory effort Auscultation: clear to auscultation bilaterally Cardio: Rate: regular rate Rhythm: regular rhythm GI: Inspection: normal to inspection GI Palp: No abdominal tenderness Skin: General skin exam: no rashes or lesions noted Neuro: General: oriented to person, patient oriented x3 and No confusion Extrem: Right lower extremity: no edema Left lower extremity: no edema Psych: Appearance: grossly normal Mental Status: mental status grossly normal Objective Data Vital Signs Vital Signs: Vital Signs - 24 hr 03/15/22 16:00 03/15/22 19:27 03/15/22 20:00 Temperature 97.8 F 97.8 F Pulse Rate 65 67 67 Respiratory Rate 17 17 Blood Pressure 168/48 H 168/48 H Pulse Oximetry 95 95 Oxygen Delivery 03/15/22 20:16 03/15/22 20:16 03/15/22 20:00 Temperature Pulse Rate Respiratory Rate Blood Pressure 129/44 L 124/44 L Pulse Oximetry Oxygen Delivery Room Air 03/15/22 20:40 03/16/22 03:15 03/15/22 20:00 Temperature 96.8 F L Pulse Rate 65 64 Respiratory Rate 18 Blood Pressure 119/40 L Pulse Oximetry 95 94 Oxygen Delivery Room Air 03/16/22 00:00 03/16/22 04:00 03/16/22 08:53 Temperature Pulse Rate 62 63 69 Respiratory Rate Blood Pressure Pulse Oximetry Oxygen Delivery 03/16/22 12:00 Temperature Pulse Rate 70 Respiratory Rate Bl
[2022-03-16 16:28] LABS: Glucose Point of Care 185 mg/dl (65-105)
[2022-03-17] VITALS (10 sets, daily range): BP systolic 77–163; BP diastolic 43–61; PULSE 59–71; RESP 19–20; TEMP 36.2–37.1; O2SAT 94–96
[2022-03-17 01:12] LABS: Glucose Point of Care 289 mg/dl (65-105)
[2022-03-17 01:12] LABS: Glucose Point of Care 326 mg/dl (65-105)
--- NOTE | 2022-03-17 07:40 | PM.DS ---
DS: Admitting Diagnosis Discharge Date March 18, 2022 Admitting Diagnosis Syncope DS: Discharge Diagnosis Discharge Diagnosis (1) Syncope due to orthostatic hypotension: Code(s): I95.1 - Orthostatic hypotension Status: Acute Assessment and Plan: Persistent issue ongoing for some time, worsened recently with admission 2 weeks prior for same - Suspicion for autonomic dysfunction due to fpc DM1 exacerbated by recent significant emotional stress - Continue midodrine 10 mg t.i.d. - Continue Florinef 0.1 mg daily. Started on 03/10 per Cardiology recommendations - Thigh-high Kavon hose to be worn at all times - Abdominal binder - Fall precautions - Reminder to rise and change positions slowly. 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 Blood sugars well controlled on home insulin pump - Pump refilled by supplies brought in by daughter (3) Chronic kidney disease, stage III (moderate): Code(s): N18.3 - Chronic kidney disease, stage 3 (moderate) Status: Chronic Assessment and Plan: Renal function reviewed and appears consistent with baseline - Monitor BMP (4) Symptom of bladder outlet obstruction: Code(s): N32.0 - Bladder-neck obstruction Status: Suspected Assessment and Plan: Patient reports urinary dribbling - Recently completed 14 day course of Flomax with symptomatic improvement - Patient had outpatient urology appt scheduled for 03/11 which she was not able to attend due to hospitalization - Flomax discontinued due to hypotension - Urine output is adequate. Continue to monitor (5) Neck pain: Code(s): M54.2 - Cervicalgia Status: Resolved Assessment and Plan: Resolved. - Cervical spine CT showed moderate cervical spondylosis with no acute findings - Supportive care (6) Situational anxiety: Code(s): F41.8 - Other specified anxiety disorders Status: Acute Assessment and Plan: No acute issues at this time - PRN hydroxyzine Plan Anticipate patient will need rehab versus SNF at discharge for safety until orthostatic hypotension symptoms improved DVT prophylaxis with SCDs GI prophylaxis not indicated Code status full code DS: Summary Hospital Course Hospital Course: 76-year-old female with a past medical history of diabetes mellitus type 1.? Patient presented to [facility] after having syncopal episodes at home.? Patient reports that every time she sits up or stands up this happens.? This is been going on for the last several weeks.? The patient was recently hospitalized for 5 days approximately 1 week ago and got discharged on midodrine 10 mg 3 times daily without improvement.? Patient denies any fever, chills, nausea, vomiting, chest pain or shortness of breath.? She denies any headache or visual changes.? Patient denies any history of alcohol use he does use.? She lives at home alone. While in the emergency department labs and imaging were obtained.? Patient EKG which revealed normal sinus rhythm at 72 beats per minute compared to EKG February 24 with no significant changes.? WBC 9.3, hemoglobin 12.2, hematocrit 38.3, platelet 241, sodium 136, potassium 3.7, BUN 30, creatinine 1.5, GFR 34, glucose 241.? With previous review of records from last hospitalization an echocardiogram was performed at that time which revealed an LVEF of 65-70% with grade 1 diastolic dysfunction. Patient is being admitted again for repeated syncopal episodes without improvement with medications.? Will consult Cardiology during the hospitalization.? Will resume insulin pump orders, continue to monitor hypoglycemic protocols and check Accu-Cheks AC and HS.? Continue
[2022-03-17 07:55] LABS: Glucose Point of Care 213 mg/dl (65-105)
[2022-03-17] MEDS: SACCHAROMYCES BOULARDII 250 MG CAPSULE PO (08:03)
[2022-03-17] MEDS: PANTOPRAZOLE 40 MG TABLET PO (08:03)
[2022-03-17] MEDS: SODIUM CHLORIDE 1 GM TABLET PO ×3 (08:03→16:05)
[2022-03-17] MEDS: CHOLECALCIFEROL 1,000 UNITS TABLET 4000 UNITS PO (08:03)
[2022-03-17] MEDS: FLUDROCORTISONE ACETATE 0.1 MG TABLET PO (08:03)
[2022-03-17] MEDS: MIDODRINE HCL 10 MG TABLET PO ×3 (08:04→16:05)
--- NOTE | 2022-03-17 08:42 | PC.NURSE ---
basal rate 0.7 u/hr and breakfast bolus 8.1 u administered per pt.
--- NOTE | 2022-03-17 09:43 | PCNWS ---
Weekly nutritional screen. Patient is tolerating current diet with adequate intake. HgA1C 6.3%. No weight loss reported. No nutritional needs at this time. Follow up 7 days.
--- NOTE | 2022-03-17 10:36 | PC.NURSE ---
Pt to get picked up by daughter at around 5pm today.
[2022-03-17 11:49] LABS: Glucose Point of Care 181 mg/dl (65-105)
--- NOTE | 2022-03-17 15:46 | PC.NURSE ---
Can only d/c if going to SNF/rehab, NOT safe for home, even with [facility], informed school childcare attendant Nicci TORRES
--- NOTE | 2022-03-17 15:54 | PC.NURSE ---
discharge cancelled at this time.
--- NOTE | 2022-03-17 15:57 | PM.IMPN ---
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 - Continue Florinef 0.1 mg daily. Started on 03/10 per Cardiology recommendations - Thigh-high Kavon hose to be worn at all times - Abdominal binder - Fall precautions - Reminder to rise and change positions slowly. 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 Blood sugars well controlled on home insulin pump - Pump refilled by supplies brought in by daughter (3) Chronic kidney disease, stage III (moderate): Code(s): N18.3 - Chronic kidney disease, stage 3 (moderate) Status: Chronic Assessment and Plan: Renal function reviewed and appears consistent with baseline - Monitor BMP (4) Symptom of bladder outlet obstruction: Code(s): N32.0 - Bladder-neck obstruction Status: Suspected Assessment and Plan: Patient reports urinary dribbling - Recently completed 14 day course of Flomax with symptomatic improvement - Patient had outpatient urology appt scheduled for 03/11 which she was not able to attend due to hospitalization - Flomax discontinued due to hypotension - Urine output is adequate. Continue to monitor (5) Neck pain: Code(s): M54.2 - Cervicalgia Status: Resolved Assessment and Plan: Resolved. - Cervical spine CT showed moderate cervical spondylosis with no acute findings - Supportive care (6) Situational anxiety: Code(s): F41.8 - Other specified anxiety disorders Status: Acute Assessment and Plan: No acute issues at this time - PRN hydroxyzine Plan Anticipate patient will need rehab versus SNF at discharge for safety until orthostatic hypotension symptoms improved DVT prophylaxis with SCDs GI prophylaxis not indicated Code status full code Subjective Date/time seen: 03/17/22 15:57 Interval history: Patient states she feels about the same as yesterday. She is afraid to get up or walk around by herself because she passes out without any warning. Her biggest fear is falling and breaking a bone and being alone and no one knowing. No overnight events noted. No chest pain or shortness of breath. No nausea, vomiting or diarrhea. No fevers or chills. Review of Systems Review of Systems: All systems reviewed & are unremarkable except as noted in HPI and below Exam Narrative: General: No acute distress, alert and oriented per baseline HEENT: Atraumatic, normocephalic, mucous membranes moist CV: Regular rate and rhythm, S1, S2 Lungs: Clear to auscultation bilaterally, no rales or crackles noted, no wheezes, good air entry Abdomen: Soft, nontender, nondistended Extremities: Normal to inspection Skin: No rashes noted, no lesions or wounds seen Psych: Euthymic, normal affect Objective Data Vital Signs Vital Signs: Vital Signs - 24 hr 03/16/22 16:00 03/16/22 20:00 03/16/22 20:00 Temperature 96.9 F L Pulse Rate 62 63 63 Respiratory Rate 20 Blood Pressure 156/52 H Pulse Oximetry 97 Oxygen Delivery 03/17/22 00:00 03/17/22 04:00 03/17/22 06:00 Temperature 98.7 F Pulse Rate 71 68 64 Respiratory Rate 19 Blood Pressure 77/57 L Pulse Oximetry 94 Oxygen Delivery 03/17/22 07:42 03/17/22 08:00 03/17/22 12:00 Temperature Pulse Rate 64 68 66 Respiratory Rate 1
[2022-03-17 16:49] LABS: Glucose Point of Care 161 mg/dl (65-105)
[2022-03-18 06:00] VITALS: BP 119/44; PULSE 67; RESP 20; TEMP 35.7; O2SAT 90
[2022-03-18] MEDS: HOME MEDICATION INSULIN PUMP 1 EACH XX (06:31)
[2022-03-18 08:00] VITALS: O2SAT 96
[2022-03-18 08:04] LABS: Glucose Point of Care 181 mg/dl (65-105)
[2022-03-18] MEDS: CHOLECALCIFEROL 1,000 UNITS TABLET 4000 UNITS PO (08:49)
[2022-03-18] MEDS: FLUDROCORTISONE ACETATE 0.1 MG TABLET PO (08:50)
[2022-03-18] MEDS: PANTOPRAZOLE 40 MG TABLET PO (08:50)
[2022-03-18] MEDS: METOCLOPRAMIDE HCL 10 MG TABLET PO (08:50)
[2022-03-18] MEDS: SACCHAROMYCES BOULARDII 250 MG CAPSULE PO (08:50)
[2022-03-18] MEDS: MIDODRINE HCL 10 MG TABLET PO ×2 (08:50→12:45)
[2022-03-18] MEDS: SODIUM CHLORIDE 1 GM TABLET PO ×2 (08:50→12:45)
[2022-03-18 11:51] LABS: Glucose Point of Care 203 mg/dl (65-105)
[2022-03-18 14:00] VITALS: BP 124/55; PULSE 72; RESP 20; TEMP 36.5; O2SAT 96
[2022-03-18 16:18] LABS: Glucose Point of Care 237 mg/dl (65-105)
--- NOTE | 2022-03-18 16:24 | PM.DS ---
DS: Discharge Diagnosis Discharge Diagnosis (1) Syncope due to orthostatic hypotension: Code(s): I95.1 - Orthostatic hypotension Status: Acute Assessment and Plan: Persistent issue ongoing for some time, worsened recently with admission 2 weeks prior for same - Suspicion for autonomic dysfunction due to group home DM1 exacerbated by recent significant emotional stress - Continue midodrine 10 mg t.i.d. - Continue Florinef 0.1 mg daily. Started on 03/10 per Cardiology recommendations - Thigh-high Kavon hose to be worn at all times - Abdominal binder - Fall precautions - Reminder to rise and change positions slowly. 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 Blood sugars well controlled on home insulin pump - Pump refilled by supplies brought in by daughter (3) Chronic kidney disease, stage III (moderate): Code(s): N18.3 - Chronic kidney disease, stage 3 (moderate) Status: Chronic Assessment and Plan: Renal function reviewed and appears consistent with baseline - Monitor BMP (4) Symptom of bladder outlet obstruction: Code(s): N32.0 - Bladder-neck obstruction Status: Suspected Assessment and Plan: Patient reports urinary dribbling - Recently completed 14 day course of Flomax with symptomatic improvement - Patient had outpatient urology appt scheduled for 03/11 which she was not able to attend due to hospitalization - Flomax discontinued due to hypotension - Urine output is adequate. Continue to monitor (5) Neck pain: Code(s): M54.2 - Cervicalgia Status: Resolved Assessment and Plan: Resolved. - Cervical spine CT showed moderate cervical spondylosis with no acute findings - Supportive care (6) Situational anxiety: Code(s): F41.8 - Other specified anxiety disorders Status: Acute Assessment and Plan: No acute issues at this time - PRN hydroxyzine Plan Anticipate patient will need rehab versus SNF at discharge for safety until orthostatic hypotension symptoms improved DVT prophylaxis with SCDs GI prophylaxis not indicated Code status full code DS: Summary Time Spent with Patient Time attestation: Total time spent providing and/or coordinating discharge services: Exam Narrative: General: No acute distress, alert and oriented per baseline HEENT: Atraumatic, normocephalic, mucous membranes moist CV: Regular rate and rhythm, S1, S2 Lungs: Clear to auscultation bilaterally, no rales or crackles noted, no wheezes, good air entry Abdomen: Soft, nontender, nondistended Extremities: Normal to inspection Skin: No rashes noted, no lesions or wounds seen Psych: Euthymic, normal affect DS: Data Data Completed and Pending Labs on day of discharge: Labs from last 24 hours 03/18/22 03/18/22 03/18/22 16:08 11:47 07:52 POC Capillary Glucose 237 H 203 H 181 H 03/17/22 16:37 POC Capillary Glucose 161 H Discharge Plan Discharge Attending physician on discharge: Maureen Martell Consulting providers: Finesse Garcia Discharging Clinician: Maureen Martell Anticipated Discharge Date/Time: 03/17/22 07:38 Patient Disposition: SNF Activity: other - see discharge instructions Diet: diabetic and other - see discharge instructions Patient Instructions: Syncope (GEN), Pain Management (DC), Hypotension (GEN), Diabetic Hyperglycemia (GEN) Stand Alone Forms: General Discharge Information, Group Home Discharge Follow-up/Referrals: Finesse Garcia MD [Physician] - Eric Tripp DO [Primary Care Provider] - Discharge Medications: New sodium chloride 1 gram Tablet 1 g PO TIDWM 30 Days Qty: 90 0RF
[2022-03-18 17:12] LABS: EDCOVIDSCREEN Negative (Negative)
== END 2022-03-18 18:43 | DRG 312 ==
LOC: ANHED 10:23 → ANH3MEDSUR 11:28
PROVIDERS: Internal Medicine; Physician Assistant; Admitting Provider Hospitalist; Emergency Provider Emergency Medicine; PCP Internal Medicine; Visit Provider Student in an Organized Health Care Education/Training Program
DX: I95.1 Orthostatic hypotension (principal); N17.9 Acute kidney failure, unspecified; Z20.822 Contact with and (suspected) exposure to COVID-19; E10.22 Type 1 diabetes mellitus with diabetic chronic kidney disease; N18.30 Chronic kidney disease, stage 3 unspecified; E10.319 Type 1 diabetes mellitus with unspecified diabetic retinopathy without macular edema; E10.43 Type 1 diabetes mellitus with diabetic autonomic (poly)neuropathy; N32.0 Bladder-neck obstruction; M47.812 Spondylosis without myelopathy or radiculopathy, cervical region; E87.6 Hypokalemia; F41.8 Other specified anxiety disorders; Z79.4 Long term (current) use of insulin; Z90.710 Acquired absence of both cervix and uterus; Z90.49 Acquired absence of other specified parts of digestive tract; Z90.721 Acquired absence of ovaries, unilateral
CPT/HCPCS: 36415; 72125; 80048; 80053; 81001; 82533; 82948; 83036; 84443; 85025; 85027; 87086; 87088; 87426; 93005; 96360; 96361; 97110; 97161; 97165; 97530; 99285; A9270; C9803; G0378; J1815; J7030; L0140

== ENCOUNTER 2022-03-21 11:40 | Outpatient (CLI) | payer OTHER, MEDICARE, SELFPAY ==
--- NOTE | 2022-03-24 16:11 | WPDHOLTEREM ---
Holter/Event Monitor Holter/Event Monitor Date of procedure: 03/21/22 Holter/Event Procedure: 48 Hr Holter Monitor Indications: Syncope Conclusion: 1. 48 hour holter monitor on 03/21/22. 2. Underlying rhythm is sinus rhythm. HR range 63-99 bpm; average HR 72 bpm. 3. There are 32 premature supraventricular complexes and 3 supraventricular couplets. No supraventricular tachycardia. 4. There are 5 premature ventricular complexes. No ventricular tachycardia. 5. No sinoatrial or atrioventricular blocks. No significant pauses greater than 2 seconds. 6. No symptoms available for correlation.
== END 2022-03-21 11:41 | disposition home or self-care (01) ==
PROVIDERS: PCP Internal Medicine; Visit Provider Internal Medicine
DX: R55 Syncope and collapse (principal)
CPT/HCPCS: 93225; 93226

== ENCOUNTER 2022-07-11 12:16 | Inpatient (IN) | payer MEDICARE, SELFPAY ==
[2022-07-11] VITALS (8 sets, daily range): BP systolic 101–164; BP diastolic 54–88; PULSE 64–75; RESP 15–24; TEMP 36.4; O2SAT 94–99
[2022-07-11 12:58] LABS: Basophils Absolute Auto 0.1 K/mm3 (0.0-0.1); Basophils Percent Auto 0.8 % (0.2-1.2); Eosinophils Absolute Auto 0.3 K/mm3 (0-0.3); Eosinophils Percent Auto 2.9 % (0-4.4); Hemoglobin 13.5 g/dL (12.0-15.0); Immature Granulocyte Absolute 0.04 K/mm3 (0.00-0.031); Immature Granulocyte Percent A 0.4 % (0-0.5); Lymphocytes Absolute Auto 1.95 K/mm3 (0.9-3.2); Mean Corpuscular HGB Conc 32.9 g/dl (32-36); Mean Corpuscular Hemoglobin 28.8 pg (26-34); Mean Corpuscular Volume 87.6 fl (80-100); Mean Platelet Volume 10.1 fl (7.4-10.4); Monocytes Absolute Auto 0.9 K/mm3 (0.1-0.6); Monocytes Percent Auto 9.1 % (2.6-8.5); Neutrophils Percent Auto 67.8 % (45.5-73.1); Platelet Count Result 329 k/mm3 (150-375); Red Blood Count 4.68 M/mm3 (4.2-5.4); Red Cell Distribution Width 14.6 % (11.5-14.5); White Blood Count 10.3 K/mm3 (4.5-10.0)
[2022-07-11 13:02] LABS: Alanine Aminotransferase 15 U/L (6-35); Albumin Level 3.4 g/dL (3.5-5.1); Alkaline Phosphatase 86 U/L (38-126); Anion Gap 7 mmol/L (8-16); Aspartate Amino Transferase 22 U/L (14-36); Bilirubin,Total 0.5 mg/dL (0.2-1.3); Blood Urea Nitrogen 22 mg/dL (7-17); Calcium 7.3 mg/dL (8.4-10.2); Carbon Dioxide 34 mmol/L (22-30); Chloride 98 mmol/L (98-107); Estimated CRCL calculation 32 ml/min; Estimated Glomerular Filt Rate 48; Glucose 104 mg/dL (65-110); Potassium 2.4 mmol/L (3.4-5.0); Sodium 139 mmol/L (137-145)
--- NOTE | 2022-07-11 13:21 | ECG_ITS ---
Measurements Intervals [place] Rate: 69 P: -11 WV: 176 QRS: 25 QRSD: 93 T: -33 QT: 410 QTc: 440 Interpretive Statements SINUS RHYTHM ST SEGMENT ABNORMALITY CONSIDER ANTERIOR ISCHEMIA ABNORMAL ECG COMPARED TO ECG 03/09/2022 10:05:20 ST SEGMENT DEPRESSION IS NOTED Electronically Signed On 07-11-2022 16:44:47 [employer] by Moises Dowd M.D.
--- NOTE | 2022-07-11 13:32 | PC.NURSE ---
added on pt. mag.
--- NOTE | 2022-07-11 14:33 | ED.GENADULT ---
HPI - General Adult General Chief complaint: Recheck/Abnormal Lab/Rx Stated complaint: low potassium, sent over by PCP Time Seen by Provider: 07/11/22 13:21 History of Present Illness HPI narrative: 76-year-old female with a past medical history of diabetes, orthostatic hypotension, CKD 3 presents for evaluation of hypokalemia. Patient states she had routine labs drawn at her endocrinology office earlier this week. They called her this morning and asked her to come to the ER immediately because of her low potassium. Patient has no complaints and feels well. She does not take any diuretics. Related Data Home Medications Medication Instructions Recorded Confirmed insulin lispro 100 unit/mL 1 sliding scale dose subcut 10/13/19 03/09/22 subcutaneous solution (Humalog USEASDIRECTD U-100 Insulin) omeprazole 20 mg capsule,delayed 20 mg PO DAILY 10/13/19 03/09/22 release Lactobacills gasseri-Bifidobac 1 cap PO DAILY 07/26/20 03/09/22 bifidum,longum 1.5 billion cell capsule (21viaNet) famotidine 20 mg tablet 20 mg PO BID 07/26/20 03/09/22 metoclopramide HCl 10 mg tablet 10 mg PO TID PRN nausea and 03/09/22 03/09/22 vomiting Allergies Allergy/AdvReac Type Severity Reaction Status Date / Time vancomycin Allergy Unknown Hypertensio Verified 03/09/22 09:46 n Review of Systems Review of Systems: CONSTITUTIONAL: Denies fever, chills, or sweats. EYES: Denies visual changes, redness, or discharge. ENT: Denies rhinorrhea, congestion, sore throat, or otalgia. CARDIOVASCULAR: Denies chest pain, palpitations, or edema. RESPIRATORY: Denies cough or dyspnea. GASTROINTESTINAL: Denies abdominal pain, nausea, vomiting, or diarrhea. GENITOURINARY: Denies dysuria or hematuria. SKIN: Denies rash or itching. MUSCULOSKELETAL: Denies back pain, joint pain, or myalgia. NEUROLOGIC: Denies headache, numbness, or weakness. PSYCHIATRIC: Denies anxiety or depression. [facility] Past Medical History Medical History Chronic kidney disease, stage III (moderate) Diabetic polyneuropathy associated with type 1 diabetes mellitus Screening for breast cancer Syncope due to orthostatic hypotension Type 1 diabetes mellitus Surgical History Surgical History H/O hysterectomy with unilateral oophorectomy History of cholecystectomy History of orthopedic surgery ankle fusion and screws placed and removed -nm Family History Family History Sibling Family history of respiratory disorder Father Family history of lung cancer Family history of emphysema Family history of coronary artery disease Mother Family history of lung cancer Other Family history of heart disease in male family member before age 55 Family history of lung disease Family history of malignant neoplasm Social History Social History Smoking status: Never smoker Second hand tobacco smoke exposure: Yes Alcohol intake: never Alcohol use details: once every 3-4 years Substance use: never Substance use type: does not use Spiritual care concerns: No Exam Narrative: GENERAL: Well-appearing, well-nourished, and in no acute distress. HEAD: Normocephalic, atraumatic. EYES: PERRLA and EOMI. ENT: Nares clear, no rhinorrhea or epistaxis. Mucous membranes moist. NECK: Supple. CHEST: Clear to auscultation. No respiratory distress. HEART: Regular rate and rhythm. No murmur heard. Normal peripheral pulses. ABDOMEN: Soft, nontender, nondistended, normal active bowel sounds. EXTREMITIES: Normal range of motion. No edema. SKIN: Warm, dry, no rash. NEURO: No focal deficits. Alert and oriented x3. PSYCH: Normal mood and affect. Course Vital Signs Vital signs: Vital Signs Temperature 97.6 F 07/11/22 12:23 Pul
[2022-07-11] MEDS: POTASSIUM CHLORIDE INJ 40 MEQ in SODIUM CHLORIDE 0.9% IV 500 ML 130 MEQ IVPB (14:50)
[2022-07-11] MEDS: POTASSIUM BICARBONATE 25 MEQ TABEF 50 MEQ PO (14:51)
[2022-07-11] MEDS: MAGNESIUM SULF 2 GM/WATER 50ML 2 GM/50 ML BAG IVPB (15:12)
[2022-07-11 21:15] LABS: Anion Gap 3 mmol/L (8-16); Blood Urea Nitrogen 19 mg/dL (7-17); Carbon Dioxide 39 mmol/L (22-30); Chloride 95 mmol/L (98-107); Estimated CRCL calculation 39 ml/min; Estimated Glomerular Filt Rate > 60; Glucose 86 mg/dL (65-110); Potassium 2.7 mmol/L (3.4-5.0); Sodium 137 mmol/L (137-145)
[2022-07-11 22:03] LABS: Add Urine Microscopic? YES; Appearance Urine Slightly Cloudy (Clear); Bilirubin Urine Negative (Negative); Blood Urine Negative (Negative); Color Urine Yellow (Yellow); Glucose Urine UA 1+ mg/dL (Negative); Ketones Urine Negative (Negative); Leukocyte Esterase Ur Negative LEU/UL (Negative); Nitrate Urine Negative (Negative); Protein Urine 2+ mg/dL (Negative); Specific Grav Ur >= 1.030 (1.001-1.035); Urobilinogen Urine 0.2 mg/dL (<2.0); pH Urine 5.5 (5.0-9.0)
[2022-07-11 22:13] LABS: Bacteria Urine 2+ /hpf; Calcium Oxalate Crystals Urine Present /hpf; Mucus Urine Moderate /lpf; Squamous Epithelial Cell Urine Many /hpf (Few)
[2022-07-11] MEDS: POTASSIUM CHLORIDE 20 MEQ TABLET 80 MEQ PO (22:15)
--- NOTE | 2022-07-11 22:20 | PM.IMHP ---
H&P: HPI History of Present Illness Date/Time: 07/11/22 22:20 Chief Complaint: Abnormal labs Narrative: This is a 76-year-old patient who has diabetes type 1. She has an insulin pump and a DEXAcom. The patient has diabetic retinopathy and has difficulty feeling her at times. At this point her daughter is helping her feel the insulin pump. The patient is legally blind and cannot see to feel her own insulin pump. The patient recently lost a significant other of 12 years and has been grieving the loss of her significant other. The patient stated that she was prescribed anti anxiety and anti depression medication but is currently at the pharmacy and she has not picked it up. 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 Patient typically has low sodium and has been taking sodium tablets. Her sodium is within normal limits today. Her sodium is 137. Potassium initially was 2.4 now it is 2.7. The patient was supplemented with p.o. potassium as well as IV potassium and magnesium as well. Her potassium was noted to be 1.0. The patient denies any nausea vomiting or diarrhea. The patient is not on any diuretics. The patient is being admitted to observation status on the date of service of 07/11/2022. Review of Systems Review of Systems: See HPI All systems reviewed & are unremarkable except as noted in HPI and below Constitutional: Constitutional: Reports as per HPI and Reports no additional constitutional complaints Eyes: Eyes: Reports as per HPI and Reports no additional eye complaints ENT: Reports system reviewed and no additional complaints, except as documented and Reports Normal hearing present Cardiovascular: Cardiovascular: Reports no additional cardiovascular complaints Respiratory: Respiratory: Reports no additional respiratory complaints and Reports no additional respiratory complaints Gastrointestinal: Gastrointestinal: Reports as per HPI and Reports no additional gastrointestinal complaints Musculoskeletal: Musculoskeletal: Reports no additional musculoskeletal complaints Integumentary/Breasts: Skin/Breast: Reports system reviewed and no additional complaints, except as docu and Reports as per HPI Neurologic: Reports system reviewed and no additional complaints, except as documented, Reports as per HPI and Reports Normal hearing present Psychiatric: Psychiatric: Reports no additional psychiatric complaints and Reports as per HPI Endocrine: Endocrine: Reports no additional endocrine complaints Hematologic/Lymphatic: Hematologic/Lymphatic: Reports no additional hematologic/lymphatic complaints Allergic/Immunologic: Allergic/Immunologic: Reports no additional allergic/immunologic complaints [facility] Past Medical History Medical History (Updated 07/11/22 @ 23:21 by Isabel Brink NP) Chronic GERD Chronic kidney disease, stage III (moderate) Diabetic polyneuropathy associated with type 1 diabetes mellitus History of DVT (deep vein thrombosis) Screening for breast cancer Syncope due to orthostatic hypotension Type 1 diabetes mellitus Surgical History Surgical History (Updated 07/11/22 @ 23:01 by Isabel Brink NP) H/O hysterectomy with unilateral oophorectomy History of bladder surgery History of cataract extraction History of cholecystectomy History of orthopedic surgery ankle fusion and screws placed and removed -nm Family History Family History Sibling Family history of respiratory disorder Father Family history of lung cancer Family history of emphysema Family history of coronary artery disease Mother Family history of lung cancer Other Family history of heart disease in male family member before age 55 Family history of lung disease Family history of malignant neoplasm Social History Social History (Updated 07/11/22 @ 23:03 by Isabel Brink NP) Social History:
[2022-07-11 22:40] LABS: Influenza A QL RT-PCR Negative (Negative); Influenza B QL RT-PCR Negative (Negative); SARS-CoV-2 RNA PCR Negative
[2022-07-11] MEDS: KCL 40 MEQ/WATER 100 ML 100 ML 25 ML IVPB (22:51)
[2022-07-12] VITALS (11 sets, daily range): BP systolic 129–149; BP diastolic 46–79; PULSE 70–88; RESP 16–20; TEMP 36.2–36.6; O2SAT 93–99; BMI 23.0
[2022-07-12 01:47] LABS: Anion Gap 4 mmol/L (8-16); Blood Urea Nitrogen 18 mg/dL (7-17); Calcium 7.1 mg/dL (8.4-10.2); Carbon Dioxide 37 mmol/L (22-30); Chloride 97 mmol/L (98-107); Estimated CRCL calculation 40 ml/min; Estimated Glomerular Filt Rate 48; Glucose 121 mg/dL (65-110); Potassium 2.9 mmol/L (3.4-5.0); Sodium 138 mmol/L (137-145)
--- NOTE | 2022-07-12 05:36 | PC.NURSE ---
Pt admitted from ER to 316-1 with low mg and K . Pt alert, cooperative, talkative. Pt lives alone in trailer. Has state homemaker assist x1 week for 3 hours. Does not use stove, does not drive. Limited vision due to diabetic retinopathy, [place]. Pt states she cleans house and does own laundry. Family assists with getting groceries. Pt partner in March and since, pt in bed much of the time with decreased appetite. Adult children would like pt to stay in an assisted living . Pt willing to change living situation. Has implanted insulin pump. Uses walker, scooter and w/c for assist. Dried brown stool on both feet, pt unaware, states she cannot see details . On tele- SR Fall precautions
[2022-07-12 06:16] LABS: Basophils Absolute Auto 0.1 K/mm3 (0.0-0.1); Basophils Percent Auto 0.7 % (0.2-1.2); Eosinophils Absolute Auto 0.3 K/mm3 (0-0.3); Eosinophils Percent Auto 3.1 % (0-4.4); Hematocrit 38.2 % (37.0-47.0); Hemoglobin 12.7 g/dL (12.0-15.0); Immature Granulocyte Absolute 0.04 K/mm3 (0.00-0.031); Immature Granulocyte Percent A 0.5 % (0-0.5); Lymphocytes Absolute Auto 1.46 K/mm3 (0.9-3.2); Lymphocytes Percent Auto 16.6 % (18.3-44.2); Mean Corpuscular HGB Conc 33.2 g/dl (32-36); Mean Corpuscular Hemoglobin 28.6 pg (26-34); Mean Platelet Volume 9.7 fl (7.4-10.4); Monocytes Absolute Auto 0.7 K/mm3 (0.1-0.6); Monocytes Percent Auto 8.3 % (2.6-8.5); Neutrophils Absolute Auto 6.3 K/mm3 (1.3-6.7); Neutrophils Percent Auto 70.8 % (45.5-73.1); Platelet Count Result 290 k/mm3 (150-375); Red Blood Count 4.44 M/mm3 (4.2-5.4); Red Cell Distribution Width 14.8 % (11.5-14.5); White Blood Count 8.8 K/mm3 (4.5-10.0)
[2022-07-12 06:28] LABS: Lactic Acid Reflex 1.3 mmol/L (0.7-2.0)
[2022-07-12 06:29] LABS: Alanine Aminotransferase 13 U/L (6-35); Albumin Level 3.1 g/dL (3.5-5.1); Alkaline Phosphatase 76 U/L (38-126); Anion Gap 1 mmol/L (8-16); Aspartate Amino Transferase 22 U/L (14-36); Bilirubin,Total 0.4 mg/dL (0.2-1.3); Blood Urea Nitrogen 17 mg/dL (7-17); Calcium 7.1 mg/dL (8.4-10.2); Carbon Dioxide 37 mmol/L (22-30); Chloride 100 mmol/L (98-107); Estimated CRCL calculation 43 ml/min; Estimated Glomerular Filt Rate 54; Glucose 150 mg/dL (65-110); Magnesium 1.4 mg/dL (1.6-2.3); Potassium 3.4 mmol/L (3.4-5.0); Sodium 138 mmol/L (137-145)
[2022-07-12] MEDS: POTASSIUM CHLORIDE 20 MEQ TABLET 60 MEQ PO (08:20)
[2022-07-12] MEDS: MAGNESIUM SULFATE 3GM/D5W100ML 3 GM/100 ML BAG IVPB (08:20)
[2022-07-12 08:21] LABS: Glucose Point of Care 143 mg/dl (65-105)
[2022-07-12 11:43] LABS: Glucose Point of Care 118 mg/dl (65-105)
--- NOTE | 2022-07-12 11:58 | PM.IMPN ---
Progress Note: A&P Assessment and Plan (1) Hypomagnesemia: Code(s): E83.42 - Hypomagnesemia Status: Acute Assessment and Plan: Magnesium level 1.0 on admission. She was given 2 grams Mag sulfate IV x1. 07/12 magnesium level 1.4. give additional 3 grams mag sulfate. Reflexes not hyperactive, however, patient stiff and has significant neuropathy which seems to be affecting assessment. Loose stool and appetite changes as per HPI (2) Hypokalemia: Code(s): E87.6 - Hypokalemia Status: Acute Assessment and Plan: As above. May be secondary to severely decreased oral intake. She reports prior to admission one day she ate only a sausage osman. No nausea, vomiting or medication changes. K 2.4 on admission. She received 80 mEQ PO, 40 mEQ IV, 40 mEQ PO in the ED and upon admission. K 3.4 today, give additional 60 mEQ Repeat BMP & Magnesium in the am. Monitor telemetry (3) Diabetic polyneuropathy associated with type 1 diabetes mellitus: Code(s): E10.42 - Type 1 diabetes mellitus with diabetic polyneuropathy Status: Chronic Assessment and Plan: Stable. Patient has an insulin pump that she manages and DEXAcom sensor. She stated that she is legally blind and is having difficulty with her insulin pump. Her daughter needs to come and help her every 5 days to get her insulin pump filled. A1c 6.3% in 02/2022. Repeat in am. Monitor glucose AC/HS with consistent carb diet. (4) Chronic GERD: Code(s): K21.9 - Gastro-esophageal reflux disease without esophagitis Status: Chronic Assessment and Plan: Continue with Pepcid and PPI (5) Irritable bowel syndrome with diarrhea: Code(s): K58.0 - Irritable bowel syndrome with diarrhea Status: Chronic Assessment and Plan: PRN loperamide Start Banatrol BID (6) Weight loss: Code(s): R63.4 - Abnormal weight loss Status: Acute Assessment and Plan: Presumed secondary to depression after loss of her significant other. She reports her PCP put her on an antidepressant that is supposed to help with her appetite. Start mirtazapine 15 mg at HS. consult dietitian Start glucerna BID. (7) Depression: Qualifiers: Depression Type: major depressive disorder Code(s): F32.A - Depression, unspecified Status: Acute Assessment and Plan: Recent loss of her significant other. She reports anhedonia, laying in bed for 3 days at a time then insomnia, loss of appetite and weight loss. Start mirtazapine as above. She believes this is the medication her provider prescribed. Plan Code status: full code Disposition: observation Discharge plan: Consult PT/OT and care coordination. She is trying to get into assisted living. She does not want SNF placement, but is interested in home health if available. Time Spent With Patient Time with patient: 15 - 25 minutes Subjective Date/time seen: 07/12/22 11:58 Interval history: She had large loose stool yesterday prior to admission. She has this frequently every 3 days and reports prior diagnosis of IBS-D. Appetite has been very poor recently, has had significant unplanned weight loss, having trouble sleeping or getting out of bed. She recently lost her significant other of 12 years and has been depressed. No vomiting, muscle weakness, chest pain, palpitations, SOB, or dizziness. Review of Systems Review of Systems: All systems reviewed & are unremarkable except as noted in HPI and below Exam Narrative: GENERAL: No acute distress. Dangling. Well-developed older adult female. HEENT: Normocephalic. Sclera non-icteric. Pupils equal and round. Hearing grossly intact. moist mucous membranes NECK: Supple. No JVD RESPIRATORY: RR regular and unlabored. Lung sounds clear to auscultation bilaterally. CARDIO: Normal S1 and S2 regular rate and rhythm. No murmurs, gallops, or rubs. GI: soft, soft and nontender to palpation, bow
[2022-07-12 15:40] LABS: Glucose Point of Care 97 mg/dl (65-105)
[2022-07-12] MEDS: SACCHAROMYCES BOULARDII 250 MG CAPSULE PO (16:22)
[2022-07-12] MEDS: SODIUM CHLORIDE 1 GM TABLET PO (16:22)
[2022-07-12] MEDS: MIDODRINE HCL 10 MG TABLET PO (16:22)
[2022-07-12] MEDS: FAMOTIDINE 20 MG TABLET PO (16:22)
[2022-07-12 16:36] LABS: Glucose Point of Care 73 mg/dl (65-105)
[2022-07-12] MEDS: MIRTAZAPINE 15 MG TABLET PO (21:30)
[2022-07-12 23:22] LABS: Glucose Point of Care 96 mg/dl (65-105)
[2022-07-13] VITALS (9 sets, daily range): BP systolic 143–160; BP diastolic 49–61; PULSE 71–89; RESP 17–20; TEMP 36.3–36.7; O2SAT 93–96
[2022-07-13 01:50] LABS: Glucose Point of Care 154 mg/dl (65-105)
--- NOTE | 2022-07-13 02:11 | PC.NURSE ---
Addendum entered by Sukhjinder Curiel RN 07/13/22 02:25: Dr Shetty notified and low dose sliding scale ordered Original Note: Pt dexcom/insulin pump malfunction, pt does not know how to turn pump off and is agreeable to removing pump for remainder of admission. pt accuchecks will be monitored ACHS.
[2022-07-13 05:10] LABS: Add Urine Microscopic? YES; Appearance Urine Clear (Clear); Bilirubin Urine Negative (Negative); Blood Urine Negative (Negative); Color Urine Light Yellow (Yellow); Glucose Urine UA 1+ mg/dL (Negative); Ketones Urine Negative (Negative); Leukocyte Esterase Ur Negative LEU/UL (Negative); Nitrate Urine Negative (Negative); Protein Urine Negative (Negative); Specific Grav Ur 1.015 (1.001-1.035); Urobilinogen Urine 0.2 mg/dL (<2.0); pH Urine 7.5 (5.0-9.0)
[2022-07-13 05:14] LABS: Bacteria Urine Trace /hpf; Mucus Urine Rare /lpf; RBC Urine 0-2 /hpf (0-2); Squamous Epithelial Cell Urine Few /hpf (Few); WBC Urine 0-3 /hpf
[2022-07-13 08:32] LABS: Anion Gap 10 mmol/L (8-16); Blood Urea Nitrogen 17 mg/dL (7-17); Calcium 7.9 mg/dL (8.4-10.2); Carbon Dioxide 27 mmol/L (22-30); Chloride 97 mmol/L (98-107); Estimated CRCL calculation 43 ml/min; Estimated Glomerular Filt Rate 54; Glucose 468 mg/dL (65-110); Magnesium 1.6 mg/dL (1.6-2.3); Potassium 4.4 mmol/L (3.4-5.0); Sodium 134 mmol/L (137-145)
[2022-07-13 08:56] LABS: Glucose Point of Care > 500 mg/dl (65-105)
[2022-07-13 08:59] LABS: Hemoglobin A1C 6.5 % (<5.7)
[2022-07-13] MEDS: SACCHAROMYCES BOULARDII 250 MG CAPSULE PO ×2 (09:03→17:26)
[2022-07-13] MEDS: SODIUM CHLORIDE 1 GM TABLET PO ×3 (09:03→17:26)
[2022-07-13] MEDS: MIDODRINE HCL 10 MG TABLET PO ×3 (09:03→17:26)
[2022-07-13] MEDS: CHOLECALCIFEROL 1,000 UNITS TABLET 2000 UNITS PO (09:03)
[2022-07-13] MEDS: PANTOPRAZOLE 40 MG TABLET PO (09:03)
[2022-07-13] MEDS: INSULIN ASPART (*BKC) 100 UNITS/ML SUB-Q ×5 (09:04→17:27)
[2022-07-13] MEDS: FAMOTIDINE 20 MG TABLET PO ×2 (09:04→17:26)
[2022-07-13] MEDS: FLUDROCORTISONE ACETATE 0.1 MG TABLET PO (09:04)
[2022-07-13] MEDS: SODIUM CHLORIDE 0.9% IV 1,000 ML 999 ML IV CONT (09:55)
[2022-07-13 12:08] LABS: Glucose Point of Care 360 mg/dl (65-105)
[2022-07-13 12:32] LABS: Glucose Point of Care 373 mg/dl (65-105)
[2022-07-13] MEDS: CIPROFLOXACIN 250 MG TABLET PO ×2 (15:01→21:19)
[2022-07-13 15:42] LABS: Glucose Point of Care 306 mg/dl (65-105)
--- NOTE | 2022-07-13 16:36 | PM.IMPN ---
Progress Note: A&P Assessment and Plan (1) Hypomagnesemia: Code(s): E83.42 - Hypomagnesemia Status: Acute Assessment and Plan: Magnesium level 1.0 on admission. She was given 2 grams Mag sulfate IV x1. 07/12 magnesium level 1.4. give additional 3 grams mag sulfate. Reflexes not hyperactive, however, patient stiff and has significant neuropathy which seems to be affecting assessment. Loose stool and appetite changes as per HPI 07/13 magnesium 1.6 and stable. (2) Hypokalemia: Code(s): E87.6 - Hypokalemia Status: Acute Assessment and Plan: As above. May be secondary to severely decreased oral intake. She reports prior to admission one day she ate only a sausage osman. No nausea, vomiting or medication changes. K 2.4 on admission. She received 80 mEQ PO, 40 mEQ IV, 40 mEQ PO in the ED and upon admission. K 3.4 today, give additional 60 mEQ 07/13 K 4.4 Repeat BMP in am. Monitor telemetry (3) Diabetic polyneuropathy associated with type 1 diabetes mellitus: Code(s): E10.42 - Type 1 diabetes mellitus with diabetic polyneuropathy Status: Chronic Assessment and Plan: Stable. Patient has an insulin pump that she manages and DEXAcom sensor. She stated that she is legally blind and is having difficulty with her insulin pump. Her daughter needs to come and help her every 5 days to get her insulin pump filled. A1c 6.3% in 02/2022. Repeat in am. Monitor glucose AC/HS with consistent carb diet. insulin pump removed overnight and patient hyperglycemic. New pump tubing and sensor brought in by family. Given aspart 15 units SQ x1, basal-bolus insulin ordered, however patient was able to reattach her insulin pump and it was continued. Repeat glucose 360. BMP with stable BUN, serum creatinine, corrected sodium 141, and K 4.4. Anion gap 10 and bicarb 27 Given 1 liter NS fluids x1. (4) Chronic GERD: Code(s): K21.9 - Gastro-esophageal reflux disease without esophagitis Status: Chronic Assessment and Plan: Continue with Pepcid and PPI (5) Irritable bowel syndrome with diarrhea: Code(s): K58.0 - Irritable bowel syndrome with diarrhea Status: Chronic Assessment and Plan: PRN loperamide started Banatrol BID (6) Weight loss: Code(s): R63.4 - Abnormal weight loss Status: Acute Assessment and Plan: Presumed secondary to depression after loss of her significant other. She reports her PCP put her on an antidepressant that is supposed to help with her appetite. Started mirtazapine 15 mg at HS. consult dietitian Started glucerna BID. (7) Depression: Qualifiers: Depression Type: major depressive disorder Code(s): F32.A - Depression, unspecified Status: Acute Assessment and Plan: Recent loss of her significant other. She reports anhedonia, laying in bed for 3 days at a time then insomnia, loss of appetite and weight loss. Started mirtazapine as above. She believes this is the medication her provider prescribed. Plan Code status: full code Disposition: observation Discharge plan: Consult PT/OT and care coordination. She is trying to get into assisted living. She does not want SNF placement, but is interested in home health if available. Discharge home in the morning if electrolytes and glucose stable. Time Spent With Patient Time with patient: 15 - 25 minutes Subjective Date/time seen: 07/13/22 16:36 She reports urinary frequency, hesitancy, dribbling and burning when urinating. These symptoms started last night. No flank pain, palpitations or chest pain. Her dexcom sensor was due to be changed and per nursing there were some complications overnight and both her insulin pump and glucose sensor were removed. Glucose this morning was >500. Review of Systems Review of Systems: All systems reviewed & are unremarkable except as noted in HPI and below Exam Narrative: GENERAL: No ac
[2022-07-13 17:29] LABS: Glucose Point of Care 265 mg/dl (65-105)
[2022-07-13] MEDS: MIRTAZAPINE 15 MG TABLET PO (21:19)
[2022-07-13] MEDS: TAMSULOSIN HCL 0.4 MG CAPSULE PO (21:19)
[2022-07-14] VITALS: PULSE 76
[2022-07-14 04:00] VITALS: PULSE 76
[2022-07-14 04:29] LABS: Glucose Point of Care 187 mg/dl (65-105)
[2022-07-14 05:52] VITALS: BP 128/45; PULSE 76; RESP 18; TEMP 36.6; O2SAT 93
[2022-07-14 06:54] LABS: Anion Gap 3 mmol/L (8-16); Blood Urea Nitrogen 19 mg/dL (7-17); Calcium 7.6 mg/dL (8.4-10.2); Carbon Dioxide 31 mmol/L (22-30); Chloride 104 mmol/L (98-107); Estimated CRCL calculation 43 ml/min; Estimated Glomerular Filt Rate 54; Glucose 226 mg/dL (65-110); Magnesium 1.4 mg/dL (1.6-2.3); Potassium 3.4 mmol/L (3.4-5.0); Sodium 138 mmol/L (137-145)
[2022-07-14] MEDS: FLUDROCORTISONE ACETATE 0.1 MG TABLET PO (08:43)
[2022-07-14] MEDS: CIPROFLOXACIN 250 MG TABLET PO (08:44)
[2022-07-14] MEDS: CHOLECALCIFEROL 1,000 UNITS TABLET 2000 UNITS PO (08:44)
[2022-07-14] MEDS: MIDODRINE HCL 10 MG TABLET PO ×3 (08:48→16:24)
[2022-07-14] MEDS: FAMOTIDINE 20 MG TABLET PO ×2 (08:49→16:24)
[2022-07-14] MEDS: SACCHAROMYCES BOULARDII 250 MG CAPSULE PO ×2 (08:49→16:24)
[2022-07-14] MEDS: PANTOPRAZOLE 40 MG TABLET PO (08:49)
[2022-07-14] MEDS: SODIUM CHLORIDE 1 GM TABLET PO ×3 (08:49→16:24)
[2022-07-14 11:47] LABS: Glucose Point of Care 237 mg/dl (65-105)
[2022-07-14] MEDS: MAGNESIUM SULFATE 3GM/D5W100ML 3 GM/100 ML BAG IVPB (12:34)
[2022-07-14 14:30] VITALS: BP 99/58; PULSE 73; RESP 14; TEMP 36.7; O2SAT 97
[2022-07-14 15:30] VITALS: BMI 26.8
--- NOTE | 2022-07-14 15:52 | WPDURCON ---
Assessment and Plan Assessment and plan (1) Feeling of incomplete bladder emptying: Code(s): R39.14 - Feeling of incomplete bladder emptying Status: Acute Assessment and Plan: Bladder scan and call with results. We disscussed that if PVR is > 300cc she should have a lee placed and f/u in the office for urodynamics. However, her creatinine is normal and she isn't uncomfortable, so I let her know that we would get a LUCÍA to ensure there are no underlying issues such as hydronephrosis or obstruction and she could f/u without a lee as long as her creatinine remains normal and she isn't uncomfortable with a reasonable bladder scan. (2) Frequency of micturition: Code(s): R35.0 - Frequency of micturition Status: Acute (3) Diabetic polyneuropathy associated with type 1 diabetes mellitus: Code(s): E10.42 - Type 1 diabetes mellitus with diabetic polyneuropathy Status: Chronic Assessment and Plan: We discussed the correlation to elevated glucose and OAB symptoms. She also understands that if her blood glucose is elevated she will having worsening symtpoms of OAB and higher risk of UTI's. Urology Consult Note HPI Date Seen: 07/14/22 Time Seen: 15:52 Requesting Physician: Merced Shetty MD Primary Care Provider: Eric Tripp DO Consult Narrative Reason for consult: Retention Narrative: Dee Gibson is a 76 year old female who presented to the hospital for hypokalemia d/t labs done at her [employer]. She has had difficulty managing her diabetes at home despite having an insulin pump. Her glucose in house has been reported as high as >500. She started to c/o urinary symptoms such as urinary frequency, hesitancy, dribbling and burning when urinating. Her urine culture however from 07/11/22 was negative. She states she has had difficulty emptying her bladder for years, has had frequency q 2 hours and gets up 1-2x/night for many years as well. She states she has told various doctors over the past few years about her difficulty urinating but none of them seem to care. She has a normal creatinine at this time of 1.00. She denies gross hematuria or history of chronic UTI's. Review of Systems Cardiovascular: Cardiovascular: Reports no additional cardiovascular complaints and Denies chest pain Respiratory: Respiratory: Reports no additional respiratory complaints Genitourinary: Genitourinary: Denies hematuria, Reports nocturia, Reports dysuria, Denies pelvic pain, Denies flank pain, Reports urinary incontinence, Denies urinary hesitancy and Reports urinary urgency PMF Past Medical History Medical History Chronic GERD Chronic kidney disease, stage III (moderate) Diabetic polyneuropathy associated with type 1 diabetes mellitus History of DVT (deep vein thrombosis) Screening for breast cancer Syncope due to orthostatic hypotension Type 1 diabetes mellitus Surgical History Surgical History H/O hysterectomy with unilateral oophorectomy History of bladder surgery History of cataract extraction History of cholecystectomy History of orthopedic surgery ankle fusion and screws placed and removed -nm Family History Family History Sibling Family history of respiratory disorder Father Family history of lung cancer Family history of emphysema Family history of coronary artery disease Mother Family history of lung cancer Other Family history of heart disease in male family member before age 55 Family history of lung disease Family history of malignant neoplasm Social History Social History Social History: The patient is and had a significant other over the last 12 years. 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 She is
--- NOTE | 2022-07-14 16:29 | PM.IMPN ---
Progress Note: A&P Assessment and Plan (1) Hypomagnesemia: Code(s): E83.42 - Hypomagnesemia Status: Acute Assessment and Plan: Magnesium level 1.0 on admission. She was given 2 grams Mag sulfate IV x1. 07/12 magnesium level 1.4. give additional 3 grams mag sulfate. Reflexes not hyperactive, however, patient stiff and has significant neuropathy which seems to be affecting assessment. Loose stool and appetite changes as per HPI 07/13 magnesium 1.6 and stable. (2) Hypokalemia: Code(s): E87.6 - Hypokalemia Status: Acute Assessment and Plan: As above. May be secondary to severely decreased oral intake. She reports prior to admission one day she ate only a sausage osman. No nausea, vomiting or medication changes. K 2.4 on admission. She received 80 mEQ PO, 40 mEQ IV, 40 mEQ PO in the ED and upon admission. K 3.4 today, give additional 60 mEQ 07/13 K 4.4 Repeat BMP in am. Monitor telemetry (3) Diabetic polyneuropathy associated with type 1 diabetes mellitus: Code(s): E10.42 - Type 1 diabetes mellitus with diabetic polyneuropathy Status: Chronic Assessment and Plan: Stable. Patient has an insulin pump that she manages and DEXAcom sensor. She stated that she is legally blind and is having difficulty with her insulin pump. Her daughter needs to come and help her every 5 days to get her insulin pump filled. A1c 6.3% in 02/2022. Repeat in am. Monitor glucose AC/HS with consistent carb diet. insulin pump removed overnight and patient hyperglycemic. New pump tubing and sensor brought in by family. Given aspart 15 units SQ x1, basal-bolus insulin ordered, however patient was able to reattach her insulin pump and it was continued. Repeat glucose 360. BMP with stable BUN, serum creatinine, corrected sodium 141, and K 4.4. Anion gap 10 and bicarb 27 Given 1 liter NS fluids x1. (4) Chronic GERD: Code(s): K21.9 - Gastro-esophageal reflux disease without esophagitis Status: Chronic Assessment and Plan: Continue with Pepcid and PPI (5) Irritable bowel syndrome with diarrhea: Code(s): K58.0 - Irritable bowel syndrome with diarrhea Status: Chronic Assessment and Plan: PRN loperamide started Banatrol BID (6) Weight loss: Code(s): R63.4 - Abnormal weight loss Status: Acute Assessment and Plan: Presumed secondary to depression after loss of her significant other. She reports her PCP put her on an antidepressant that is supposed to help with her appetite. Started mirtazapine 15 mg at HS. consult dietitian Started glucerna BID. (7) Depression: Qualifiers: Depression Type: major depressive disorder Code(s): F32.A - Depression, unspecified Status: Acute Assessment and Plan: Recent loss of her significant other. She reports anhedonia, laying in bed for 3 days at a time then insomnia, loss of appetite and weight loss. Started mirtazapine as above. She believes this is the medication her provider prescribed. Plan Code status: full code Disposition: observation Discharge plan: Consult PT/OT and care coordination. She is trying to get into assisted living. She does not want SNF placement, but is interested in home health if available. Discharge home in the morning if electrolytes and glucose stable. Subjective Date/time seen: 07/14/22 16:29 Interval history: She reports having to be straight catheterized twice since yesterday for postvoid residuals of >600 and >400 mL. She reports improvement in burning with urination. Insulin pump and Exam Narrative: GENERAL: No acute distress. sitting up in the chair. HEENT: Normocephalic. Sclera non-icteric. Pupils equal and round. Hearing grossly intact. moist mucous membranes NECK: Supple. No JVD RESPIRATORY: RR regular and unlabored. Lung sounds clear to auscultation bilaterally. CARDIO: Normal S1 and S2 regular rate and rhythm. No murmu
--- NOTE | 2022-07-14 16:45 | PM.DS ---
DS: Admitting Diagnosis Discharge Date 07/14/2022 1645 Admitting Diagnosis Hypomagnesemia Hypokalemia Chronic GERD Diabetic polyneuropathy associated with type 1 diabetes mellitus Situational anxiety DS: Discharge Diagnosis Discharge Diagnosis (1) Hypomagnesemia: Code(s): E83.42 - Hypomagnesemia Status: Acute Assessment and Plan: Magnesium level 1.0 on admission. She was given 2 grams Mag sulfate IV x1. 07/12 magnesium level 1.4. give additional 3 grams mag sulfate. Reflexes not hyperactive, however, patient stiff and has significant neuropathy which seems to be affecting assessment. Loose stool and appetite changes as per HPI 07/13 magnesium 1.6 and stable. 07/14 magnesium 1.4, 3 grams Mag sulfate IVPB given and instructed to start mag oxide 400 mg daily at home (2) Hypokalemia: Code(s): E87.6 - Hypokalemia Status: Acute Assessment and Plan: Unclear etiology- ?malnutition versus IBS with diarrhea. ?hypomagnesemia As above. May be secondary to severely decreased oral intake. She reports prior to admission one day she ate only a sausage osman. No nausea, vomiting or medication changes. K 2.4 on admission. She received 80 mEQ PO, 40 mEQ IV, 40 mEQ PO in the ED and upon admission. K 3.4 today, give additional 60 mEQ 07/13 K 4.4 07/14 K 3.4 No arrhythmia on telemetry. Potassium chloride 20 mEQ PO daily started. (3) Diabetic polyneuropathy associated with type 1 diabetes mellitus: Code(s): E10.42 - Type 1 diabetes mellitus with diabetic polyneuropathy Status: Chronic Assessment and Plan: Patient has an insulin pump that she manages and DEXAcom sensor. She stated that she is legally blind and is having difficulty with her insulin pump.? Her daughter needs to come and help her every 5 days to get her insulin pump filled. A1c 6.3% in 02/2022. 6.5% this admission Monitored glucose AC/HS with consistent carb diet. insulin pump removed overnight 07/13 for sensor malfunction and patient hyperglycemic >500 the following morning. New pump tubing and sensor brought in by family. Given aspart 15 units SQ x1, basal-bolus insulin ordered, however patient was able to reattach her insulin pump and it was continued. Repeat glucose 360. BMP with stable BUN, serum creatinine, corrected sodium 141, and K 4.4. Anion gap 10 and bicarb 27. Given 1 liter NS fluids x1. Glucose trending down at discharge (4) Chronic GERD: Code(s): K21.9 - Gastro-esophageal reflux disease without esophagitis Status: Chronic Assessment and Plan: Continued on PPI (5) Irritable bowel syndrome with diarrhea: Code(s): K58.0 - Irritable bowel syndrome with diarrhea Status: Chronic Assessment and Plan: Continued PRN loperamide. Added Banatrol BID while inpatient. (6) Weight loss: Code(s): R63.4 - Abnormal weight loss Status: Acute Assessment and Plan: Presumed secondary to depression after loss of her significant other. She reports her PCP put her on an antidepressant that is supposed to help with her appetite. Started mirtazapine 15 mg at HS. consulted dietitian Started glucerna BID.? (7) Depression: Qualifiers: Depression Type: major depressive disorder Active/Remission status: currently active Major depression episode severity: moderate Code(s): F32.A - Depression, unspecified Status: Acute Assessment and Plan: Recent loss of her significant other. She reports anhedonia, laying in bed for 3 days at a time then insomnia, loss of appetite and weight loss. Started mirtazapine at HS for insomnia, depression and weight loss as above. She believes this is the medication her provider prescribed. Instructed to start medication started by PCP. (8) Acute urinary retention: Code(s): R33.8 - Other retention of urine Status: Acute Assessment and Plan: H/O urinary retention and taken of tamsulosin on previous adm
== END 2022-07-14 18:35 | disposition home or self-care (01) | DRG 641 ==
LOC: ANHED 14:17 → ANH3MEDSUR 23:45
PROVIDERS: Emergency Medicine; Nurse Practitioner; Physician Assistant; Admitting Provider Internal Medicine; Emergency Provider Emergency Medicine; PCP Internal Medicine; Visit Provider Nurse Practitioner Family
DX: E87.6 Hypokalemia (principal); F32.1 Major depressive disorder, single episode, moderate; E83.42 Hypomagnesemia; K21.9 Gastro-esophageal reflux disease without esophagitis; E10.42 Type 1 diabetes mellitus with diabetic polyneuropathy; F41.8 Other specified anxiety disorders; R39.14 Feeling of incomplete bladder emptying; R35.0 Frequency of micturition; Z96.41 Presence of insulin pump (external) (internal); E10.319 Type 1 diabetes mellitus with unspecified diabetic retinopathy without macular edema; N18.30 Chronic kidney disease, stage 3 unspecified; Z20.822 Contact with and (suspected) exposure to COVID-19; Z79.899 Other long term (current) drug therapy
CPT/HCPCS: 36415; 80048; 80053; 81001; 82728; 82948; 83036; 83605; 83735; 84443; 85025; 87086; 87088; 87636; 93005; 96361; 96365; 96366; 96368; 96376; 97161; 97165; 99282; A9270; G0378; J1815; J3475; J3480; J7030; J7040

== ENCOUNTER 2022-07-24 14:06 | Outpatient (CLI) | payer MEDICARE, SELFPAY ==
[2022-07-24 15:25] LABS: Anion Gap 3 mmol/L (8-16); Blood Urea Nitrogen 25 mg/dL (7-17); Calcium 8.7 mg/dL (8.4-10.2); Carbon Dioxide 31 mmol/L (22-30); Chloride 104 mmol/L (98-107); Estimated Glomerular Filt Rate 54; Glucose 238 mg/dL (65-110); Magnesium 1.5 mg/dL (1.6-2.3); Potassium 4.3 mmol/L (3.4-5.0); Sodium 138 mmol/L (137-145)
== END 2022-07-24 14:07 | disposition home or self-care (01) ==
PROVIDERS: PCP Internal Medicine; Visit Provider Nurse Practitioner Family
DX: E87.6 Hypokalemia (principal); E83.42 Hypomagnesemia
CPT/HCPCS: 36415; 80048; 83735

== ENCOUNTER 2024-01-10 13:28 | Emergency (ER) | payer MEDICARE, SELFPAY ==
[2024-01-10 13:42] VITALS: BP 144/52; PULSE 97; RESP 16; TEMP 36.6; O2SAT 97
--- NOTE | 2024-01-10 14:01 | ED.FEMALEGU ---
HPI - Female Genitourinary General Chief complaint: Urogenital-Female Stated complaint: uti symptoms Time Seen by Provider: 01/10/24 13:56 Source: patient and RN notes reviewed Mode of arrival: wheelchair Limitations: no limitations History of Present Illness HPI Narrative: Patient presents today complaining of 3 day history of dysuria and urinary urgency. Denies abdominal pain, new onset back pain, fever. She has been using azo and cranberry pills. Last azo was approximately 24 hours prior to arrival. Patient uses a wheelchair after hip fracture in August as well as chronic arthritis in her low back. Related Data Home Medications Medication Instructions Recorded Confirmed insulin lispro 100 unit/mL 1 sliding scale dose subcut 10/13/19 01/10/24 subcutaneous solution (Humalog USEASDIRECTD U-100 Insulin) omeprazole 20 mg capsule,delayed 20 mg PO DAILY 10/13/19 01/10/24 release Lactobacills gasseri-Bifidobac 1 cap PO DAILY 07/26/20 01/10/24 bifidum,longum 1.5 billion cell capsule ([employer]) famotidine 20 mg tablet 20 mg PO BID 07/26/20 01/10/24 metoclopramide HCl 10 mg tablet 10 mg PO TID PRN nausea and 03/09/22 01/10/24 vomiting midodrine 10 mg tablet 5 mg PO TID 01/10/24 01/10/24 Allergies Allergy/AdvReac Type Severity Reaction Status Date / Time vancomycin AdvReac Intermediate Swelling Verified 01/10/24 13:33 Review of Systems Review of Systems: CONSTITUTIONAL: Denies body aches, fever, chills, or sweats. EYES: Denies visual changes, redness, or discharge. ENT: Denies rhinorrhea, congestion, sore throat, or otalgia. CARDIOVASCULAR: Denies chest pain, palpitations, or edema. RESPIRATORY: Denies cough or dyspnea. GASTROINTESTINAL: Denies abdominal pain, nausea, vomiting, or diarrhea. GENITOURINARY: + dysuria, urgency SKIN: Denies rash, itching, or wounds. MUSCULOSKELETAL: Denies increased back pain, joint pain, or myalgia. NEUROLOGIC: Denies headache, numbness, tingling, or weakness. PSYCH: Denies depression or anxiety. [facility] Past Medical History Medical History Chronic GERD Chronic kidney disease, stage III (moderate) Diabetic polyneuropathy associated with type 1 diabetes mellitus History of DVT (deep vein thrombosis) Screening for breast cancer Syncope due to orthostatic hypotension Type 1 diabetes mellitus Surgical History Surgical History H/O hysterectomy with unilateral oophorectomy History of bladder surgery History of cataract extraction History of cholecystectomy History of orthopedic surgery ankle fusion and screws placed and removed -nm Family History Family History Sibling Family history of respiratory disorder Father Family history of lung cancer Family history of emphysema Family history of coronary artery disease Mother Family history of lung cancer Other Family history of heart disease in male family member before age 55 Family history of lung disease Family history of malignant neoplasm Social History Social History Social History: The patient is and had a significant other over the last 12 years. 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 She is a lifelong nonsmoker. She lives home alone. She does not use any alcohol marijuana or illicit drugs. Her children are the durable power corporate attorney for healthcare. Code status full code Smoking status: Never smoker Second hand tobacco smoke exposure: Yes (as child and her ) Alcohol intake: never Alcohol use details: once every 3-4 years Substance use: never Substance use type: does not use Lack of Transportation: YES Lack of Food: Never True Current Housing: I Have Housing Concerned About Future Housi
== END 2024-01-10 14:05 | disposition home or self-care (01) ==
PROVIDERS: Emergency Provider Nurse Practitioner; PCP Internal Medicine
DX: N30.01 Acute cystitis with hematuria (principal); B95.2 Enterococcus as the cause of diseases classified elsewhere; E10.22 Type 1 diabetes mellitus with diabetic chronic kidney disease; N18.30 Chronic kidney disease, stage 3 unspecified; E10.42 Type 1 diabetes mellitus with diabetic polyneuropathy; Z79.4 Long term (current) use of insulin; K21.9 Gastro-esophageal reflux disease without esophagitis; Z86.718 Personal history of other venous thrombosis and embolism
CPT/HCPCS: 81003; 87077; 87086; 87088; 87181; 99213; G0463

== ENCOUNTER 2024-02-04 13:09 | Outpatient (CLI) | payer MEDICARE, SELFPAY ==
--- NOTE | ~2024-02-04 | MM_ITS ---
EXAMINATION: MM screening lindsey BI w huong HISTORY: Screening TECHNIQUE: Craniocaudal and mediolateral oblique 3-D tomosynthesis images were obtained and synthetic 2-D images were generated. CAD analysis was submitted and interpreted. COMPARISON: Comparison to multiple prior studies sequentially, with oldest reviewed study dated 12/2017. BREAST PARENCHYMAL COMPOSITION: Not dense: There are scattered areas of fibroglandular density. FINDINGS: There is no evidence of suspicious mass, calcification, or architectural distortion to sugg est malignancy in either breast. There has been no suspicious interval change. IMPRESSION: 1. No mammographic evidence of malignancy. 2. Recommend routine screening mammography in one year. BI-RADS Category 1: Negative Reviewed, dictated and finalized at location B.
== END 2024-02-04 13:10 | disposition home or self-care (01) ==
PROVIDERS: PCP Internal Medicine; Visit Provider Internal Medicine
DX: Z12.31 Encounter for screening mammogram for malignant neoplasm of breast (principal); Z78.0 Asymptomatic menopausal state
CPT/HCPCS: 77063; 77067

== ENCOUNTER 2024-12-12 07:58 | Outpatient (CLI) | payer MEDICARE, SELFPAY ==
--- NOTE | ~2024-12-12 | MR_ITS ---
EXAMINATION: MR thoracic spine wo con DATE: 12/12/2024 08:54 INDICATION: Low back pain TECHNIQUE: Magnetic resonance imaging (MRI) of the thoracic spine was performed without intravenous c ontrast. Sagittal localizer T1-weighted FSE of the cervicothoracic spine was obtained. Thoracic spine sequences included sagittal T2-weighted FSE, sagittal T1-weighted SE, Sagittal T2-weighted FS FSE, a nd axial T2-weighted FSE. COMPARISON: None FINDINGS: 6 degrees lower thoracic levocurvature. Sagittal alignment is normal. Chronic mild anterior wedging a t T1 and T2. Remaining vertebral body heights are normal. Mild anterior disc height loss with small d egenerative endplate osteophytes at T10-T11 and T11-T12. Small Central disc protrusion at T1-T2 and s mall right paracentral disc protrusion at T3-T4, each with only minimal central canal stenosis. Multi level mild to moderate upper thoracic and moderate to severe lower thoracic facet osteoarthritis. The re is secondary mild neural foraminal stenosis with left lower thoracic predominance. There is normal spinal cord signal. Small sliding-type hiatal hernia. There are vertebral soft tissues are unremarka ble. IMPRESSION: 1. 6 degrees lower thoracic levocurvature with mild spondylosis. 2. Small sliding-type hiatal hernia. Reviewed, dictated and finalized at location A.
--- NOTE | ~2024-12-12 | MR_ITS ---
Procedure: MR lumbar spine wo con Ordering provider: Chepe Silva, DO History: . Low back pain . Comparison: None. Technique: MRI of lumbar spine without contrast. FINDINGS: SPINAL CORD: Normal. The cord ends at the level of L2. VERTEBRAL BODIES: Normal height and alignment. No compression fracture. Mixed intensity signal on T1-weighted images seen in the marrow. Marrow reconversion is possible. If clinically warranted isotope bone scan is advised. DISK SPACES: Normal. STENOSIS: Moderate spinal canal stenosis seen at the level of L3-4 with thickening of the ligamenta flava, bila teral facet joint disease, and slight narrowing of the foramina bilaterally. No definite root gigi madi seen. Mild spinal canal stenosis seen at the level of L4-L5 with thickening of the ligamenta flava and bila teral facet joint disease. Mild diffuse disc bulge is seen. Mild narrowing of the intervertebral fora ashish. Diffuse disc bulge at the level of L5-S1 with narrowing of the foramina. PARASPINOUS SOFT TISSUES: Normal. IMPRESSION: No compression fracture of the lumbar spine. Intensity signal on T1-weighted images. If clinically warranted bone isotope scan is advised. Spinal canal stenosis at the level of L3-L4 and L4-L5. No definite root compression seen. Reviewed, dictated and finalized at location A. IMPRESSION: No compression fracture of the lumbar spine. Intensity signal on T1-weighted images. If clinically warranted bone isotope sc an is advised. Spinal canal stenosis at the level of L3-L4 and L4-L5. No definite root gigi madi seen.
== END 2024-12-12 07:59 | disposition home or self-care (01) ==
LOC: MICIMG 07:59
PROVIDERS: PCP Internal Medicine; Visit Provider Orthopaedic Surgery
DX: M41.84 Other forms of scoliosis, thoracic region (principal); M47.814 Spondylosis without myelopathy or radiculopathy, thoracic region; K44.9 Diaphragmatic hernia without obstruction or gangrene; M48.061 Spinal stenosis, lumbar region without neurogenic claudication
CPT/HCPCS: 72146; 72148

== ENCOUNTER 2025-02-09 13:30 | Outpatient (CLI) | payer MEDICARE, SELFPAY ==
--- NOTE | ~2025-02-09 | DEXA_ITS ---
Bone Density Report Name: JA NIXON Age: 79 Sex: Female Ethnicity: White Date of : 1945 Indication: postmenopausal osteoporosis; parental hip fracture; height loss; inflammatory bowel disease; prior fracture; hysterectomy; Referring Provider: ANGELIQUE SCHWARTZ Study: Bone densitometry was performed. Exam Date: February 09, 2025 Accession number: [id number] Bone Density: Region BMD T-score Z-score Classification AP Spine(L1-L4) 0.699 -3.2 -0.6 Osteoporosis Femoral Neck (Right) 0.471 -3.4 -1.2 Osteoporosis Total Hip (Right) 0.550 -3.2 -1.3 Osteoporosis World Health Organization criteria for BMD impression classify patients as: Normal (T-score at or above -1.0), Osteopenia (T-score between -1.0 and -2.5), or Osteoporosis (T-score at or below -2.5). 10-year Fracture Risk: FRAX not reported because: Some T-score for Spine Total or Hip Total or Femoral Neck at or below -2.5 Prior hip or vertebral fracture Previous Exams: -- Region Exam Age BMD T-score BMD Change BMD Change Date g/cm2 vs Baseline vs Previous -- AP Spine (L1-L4) 02/09/2025 79 0.699 -3.2 -7.4%* -7.4%* 01/29/2018 72 0.755 -2.7 Total Hip(Right) 02/09/2025 79 0.550 -3.2 -17.3%* -17.3%* 01/29/2018 72 0.665 -2.3 -- *Denotes significance at 95% confidence level, LSC for AP Spine = 0.022 g/cm2, LSC for Total Hip = 0.027 g/cm2 Clinical Information Provided by Patient: Have had a previous hip or vertebral fracture Has had a low trauma fracture Parent has had a hip fracture Has used the following medications: Vitamin D, Calcium Has the following medical conditions: Inflammatory bowel diseases, Hysterectomy Patient maximum height was 64 Menopause Age: 31 Does not regularly consume dairy products Drinks caffeinated beverages Onset of menses at age 14 Number of children 3 Impression: The patient has established osteoporosis, based on the Right Femoral Neck T-score and the existence of a prior fracture. The patient has risk factors, including: parental hip fracture, previous fracture. The BMD for the AP Spine (L1-L4) decreased, changing by -7.4% since the last DXA exam. The BMD for the Total Hip(Right) decreased, changing by -17.3% since the last DXA exam. Discussion: HIGH RISK OF FRACTURE. BONE DENSITY IS UNDESIRABLY LOW AT ONE OR MORE SKELETAL SITES, CONSISTENT WITH POSTMENOPAUSAL OSTEOPOROSIS. This patient's lowest T-score, in a patient who has previously fractured, meets the World Health Organization's (WHO) criteria for severe osteoporosis. In untreated patients, the risk of osteoporotic fracture increases approximately two-fold for each 1.0 SD decrease in T-score. Low bone density is not the only risk factor for fracture; also consider factors such as patient's age, frailty or poor health, risk of falling, risk of injury, previous osteoporotic fracture, family history of osteoporosis, cigarette smoking, low body weight, etc. Not everyone with low bone mineral density has osteoporosis; osteomalacia and other metabolic bone disorders should also be considered. Patients who have osteoporosis should be evaluated for specific diseases and conditions (secondary causes) that may cause or contribute to bone loss. The [place] Association [employer] Clinical Endocrinologists (AACE) and National Osteoporosis Foundation (NOF) recommend pharmacologic intervention for all postmenopausal women with a previous hip or vertebral fracture and a T-score in this range. The patient should follow a healthful lifestyle (good nutrition with adequate calcium and vitamin D, and appropriate weight-bearing exercise). Follow-Up: Consider a repeat BMD and Vertebral Fracture Assessment (VFA) exam in 2 years or sooner if medically necessary, to reassess this patient's status. Reported by: ROLY on 02/09/2025 1:58:00 PM. Reviewed, dictated and finalized at location A.
== END 2025-02-09 13:31 | disposition home or self-care (01) ==
LOC: MICIMG 13:32
PROVIDERS: PCP Internal Medicine; Visit Provider Internal Medicine
DX: Z78.0 Asymptomatic menopausal state (principal); M81.0 Age-related osteoporosis without current pathological fracture
CPT/HCPCS: 77080

== ENCOUNTER 2025-06-30 15:22 | Outpatient (CLI) | payer MEDICARE, SELFPAY ==
--- NOTE | ~2025-06-30 | US_ITS ---
EXAMINATION: US carotid duplex BI DATE: 06/30/2025 16:29 INDICATION: Vertigo TECHNIQUE: Grayscale, color Doppler, and pulsed Doppler images of the cervical carotid arteries were obtained. The degree of vessel stenosis is placed in one of the following categories: normal, <50%, 50-69%, >=70% but less than near- occlusion, near-occlusion, or total occlusion. Note that percent stenosis relative to normal distal artery lumen diameter is indirectly measured from velocity measurements as described by Warren, et al. Radiology 2003; 229:340-346. Notes: Normal: Peak systolic velocity <125 centimeters/sec and no plaque <50%. Peak systolic velocity <125 (EDV <40; ICA/CCA PSV ratio <2.0; used these factors only a tandem lesions or low cardiac output or contralateral disease) 50-69 %: PSV 125-230 (EDV 40-100; ratio 2-4) >= 70% but less than near occlusion: PSV greater than 230 (EDV > 100; ratio> 4.0) Near Occlusion: PSV that is variable; markedly narrowed lumen Occlusion: Absent flow on color/spectral Doppler and no lumen on uriostegui scale. COMPARISON: None. FINDINGS: RIGHT: The right common carotid artery (CCA) peak systolic velocity (PSV) is 56 cm/s. The right internal carotid artery (ICA) PSV is 67 cm/s. The right ICA end- diastolic velocity (EDV) is 10 cm/s. The right ICA/CCA PSV ratio is 1.2. The external carotid artery (ECA) PSV is 90 cm/s. There is antegrade flow in the right vertebral artery. LEFT: The left CCA PSV is 67 cm/s. The left ICA PSV is 80 cm/s. The left ICA EDV is 11 cm/s. The left ICA/CCA PSV ratio is 1.2. The ECA PSV is 52 cm/s. There is antegrade flow in the left vertebral artery. IMPRESSION: 1. Less than 50% stenosis in the right internal carotid artery by sonographic criteria. 2. Less than 50% stenosis in the left internal carotid artery by sonographic criteria. Reviewed, dictated and finalized at location I. WORKER IMPRESSION: 1. Less than 50% stenosis in the right internal carotid artery by sonographic bradley crocker. 2. Less than 50% stenosis in the left internal carotid artery by sonographic eron gibbs.
--- OUTSIDE RECORDS SUMMARY | 2025-06-30 15:43 | XMS_ITS | Clinical Summary ---
Author Organization [facility] Address [address] [place] [address] Phone Care Team Providers Care [employer] Job Titles Name Role Phone Brennan Gusman MD Primary Care Provider [phone] Moises Garzon MD Unavailable [phone] Allergies Active Allergy Reactions Criticality Noted Date Comments Vancomycin Other (See comments) Medium 04/30/2020 Raises BP Diabetic retinopathy Medications Lacto.acidophi pool-Bif.animal is 32 billion cell capsule Take 1 tablet/capsu le by mouth daily Active fludrocortison e 0.1 mg tablet Take 1 tablet (0.1 mg total) by mouth daily Active L. gasseri-B. bifidum-B longum 1.5 billion cell capsule Take by mouth Active cholecalcifero l (VITAMIN D-3) 2000 unit tablet 1 tablet (2,000 Units total) daily 2 tablets per day Active insulin glargine 100 unit/mL vial for injection Inject 10 Units under the skin 2 (two) times a day Pt is to have Lantus as backup if pump fails, 10 units every 12 hours to replace basal 10 mL 1 01/15/20 23 Active HumaLOG 100 unit/mL vial for injectionIndic ations:type 1 diabetes mellitus Inject 70 Units under the skin daily Via pump : e10.9 60 mL 2 06/11/20 23 Active loperamide (IMODIUM) 2 mg capsule Take 1 capsule (2 mg total) by mouth 4 (four) times a day as needed for diarrhea (only takes when she eats out.) Active psyllium, aspartame, SF (METAMUCIL SF) 3.4 gram packet Take 2 packets by mouth daily Active midodrine (PROAMATINE) 5 mg tablet Take 1 tablet (5 mg total) by mouth 3 (three) times a day Active omeprazole (PriLOSEC) 40 mg capsule Take 1 capsule (40 mg total) by mouth daily 09/01/19 24 Active glucagon (Gvoke HypoPen 2-Pack) 1 mg/0.2 mL auto-injector Inject one pen SC for low blood sugar 0.4 mL 3 01/06/20 24 Active potassium chloride ER 10 mEq CR tablet Take 2 tablet/capsu le (20 mEq total) by mouth daily Active HYDROcodone-ac etaminophen (NORCO) 5-325 mg per tabletIndicati ons:Pain Take 1 tablet by mouth every 6 (six) hours as needed Active metoclopramide (REGLAN) 5 mg tablet Take 1 tablet (5 mg total) by mouth daily Active blood glucose diagnostic (Contour Next Test Strips) strip Use to test blood sugar 4 times per day. 50 strip 3 05/19/20 24 Active famotidine (PEPCID) 20 mg tablet TAKE 1 TABLET(20 MG) BY MOUTH TWICE DAILY 180 tablet 3 06/04/20 25 Active sennosides 8.6 mg capsule Take 1 tablet by mouth nightly As needed 025 Discontinued(Carroll engle Reported) famotidine (PEPCID) 20 mg tablet TAKE 1 TABLET(20 MG) BY MOUTH TWICE DAILY 180 tablet 3 05/01/20 24 025 Discontinued Active Problems Problem Noted Date Diagnosed Date Type 1 diabetes mellitus without complications 0 11/21/2020 Overview (04/10/2022): Diagnosed age 39 Assessment & Plan (07/10/2022 4:24 PM MATERIALS SCHEDULER): A1C 6.2% Adjusted [id number] basal to 0.8/hr from 0.75/hr and added [id number] basal at 0.75 (was 0.7) Will have us review her CGM in 1-2 weeks Trial Remeron 7.5mg HS for MDD symptoms Labs December 2021 LDL 73, does not require statin therapy Has issues with hypotension, no JUAN ANTONIO-I/ARB Assessment & Plan (04/10/2022 3:47 PM CDT): A1C 5.9% Is on CSII/CGM, checks glucose 6x daily Using 35u/day, 17u/d basal Saw retina specialist Feb 2022, has DR in [place] Follows with Podiatry every 3 months Encouraged to have us review her CGM in 1 week , occasional drop overnight and want to ensure not consistent Assessment & Plan (09/17/2021 2:05 PM MATERIALS SCHEDULER): A1C 5.7% today CGM/CSII reviewed today, along with CDNCE will lower overnight basal by 0.05 (0922-2626) Labs today, will be faxed to PCP as well Current on eye exam Sees podiatry regularly Has basal pen on hand for backup for pump failure, uses 18-19u/d basal To meet with CDNCE at next visit along with Dr. Garzon Assessment & Plan (11/21/2020 11:50 AM CDT): Have decreased basal rates to help prevent hypoglycemia. Have also prescribed nasal glucagon. Upload in 2 weeks Encounters Date Type Department Care Team Description 06/19/2025 Telephone [facility] [address] [place] [address] [place] [phone] Moises Garzon MD Spoke With Home Health Provider 06/15/2025 11:00 AM MATERIALS SCHEDULER Office Visit [facility] [address] [place] [phone] Type 1 diabetes mellitus without complications (Primary Dx) 06/15/2025 10:15 AM MATERIALS SCHEDULER Office Visit [facility] [address] [place] [phone] Moises Garzon MD Type 1 diabetes mellitus without complications (Primary Dx) from Last 3 Months Immunizations Immunization Administration Dates Next Due Influenza, Quadrivalent, Hig h Dose, Preservative Free, Intrr 05/23/2020 Influenza, Trivalent, IM (MDV) 09/05/2015,2011 Influenza, Trivalent, Preservative Free, Intramu scular 09/20/2015,06/29/2014 Pneumococcal Conjugate PCV 13 06/29/2014 Medical History Medical History Date Comments Diabetes mellitus type I 1985 Family History Medical History Relation Name Comments Diabetes Father Diabetes Mother Diabetes Son Relation Name Status Comments Father Mother Son Social History Tobacco Use Types Packs/Day Years Used Date Smoking Tobacco: Never Smokeless Tobacco: Never Tobacco Cessation:Counseling Given: Not Answered Comments Unknown Sex and Gender Information Value Date Recorded Sex Assigned at Not on file Legal Sex Female 10:32 PM MATERIALS SCHEDULER Gender Identity Not on file Sexual Orientation Not on file Last Filed Vital Signs Vital Sign Reading Time Taken Comments Blood Pressure 141/59 06/15/2025 10:21 AM MATERIALS SCHEDULER Pulse 74 06/15/2025 10:21 AM MATERIALS SCHEDULER Temperature 36.6 C (97.8 F) 11/18/2016 11:25 AM CDT Respiratory Rate - - Oxygen Saturation 96% 06/15/2025 10:21 AM MATERIALS SCHEDULER Inhaled Oxygen Concentration - - Weight 72.3 kg (159 lb 6.4 oz) 06/15/2025 10:21 AM MATERIALS SCHEDULER Height 160 cm (5' 3) 06/15/2025 10:21 AM MATERIALS SCHEDULER Body Mass Index 28.24 06/15/2025 10:21 AM MATERIALS SCHEDULER Plan of Treatment Health Maintenance Due Date Last Done Comments Albumin Creatinine Ratio, Urine 1945 Depression Screening 1945 Fall Risk Assessment 1945 Foot Exam 1945 Hepatitis C Screening 1945 Dilated Eye Exam 1955 DTaP/Tdap/Td Vaccine (1 - Tdap) 1957 Hepatitis B Screening 1964 Zoster Vaccine (1 of 2) 1996 Well Visit 65+ 12/25/2011 Pneumococcal vaccine 65+ (2 of 2 - PPSV23, PCV20, or PCV21) 08/24/2014 06/29/2014 Osteoporosis Screening-Bone Density Scan 01/30/2020 01/29/2018, 01/29/2018 eGFR 09/01/2023 09/01/2022, 06/26, 09/17/2021, Additional history exists Lipid Panel 09/16/2024 09/16/2023, 06/26, 12/18/2021, Additional history exists Covid-19 Vaccine (2 - 2024-2 6 season) 2025 10/02/2020 Influenza Vaccine (#1) 2025 , 05/23/2020, 09/20/2015, Additional history exists Hemoglobin A1C 12/13/2025 06/15/2025, 02/25, 12/07/2024, Additional history exists TSH Level 03/15/2026 03/15/2025, 08/28, 11/21/2020, Additional history exists Procedures Procedure Name Priority Date/Time Associated Diagnosis Comments POCT HEMOGLOBIN A1C Routine 06/15/2025 1 1:00 AM MATERIALS SCHEDULER Type 1 diabetes mellitus without complications TSH Routine 03/15/2025 11:16 AM CDT Type 1 diabetes mellitus without complication (HCC) Vitamin D deficiency, unspecified BASIC METABOLIC PANEL Routine 09/01/2022 11:11 AM MATERIALS SCHEDULER POCT LIPID PANEL Routine 07/10/2022 3:22 PM MATERIALS SCHEDULER Type 1 diabetes mellitus without complication (HCC) from Last 3 Months or Most Recently Relevant to Health Maintenance Results * (ABNORMAL) POCT hemoglobin A1c (06/15/2025 11:00 AM MATERIALS SCHEDULER) Hemoglobin A1C, POC 6.4(A) 4.0 - 5.6 % Blood 06/15/2025 11:0 0 AM MATERIALS SCHEDULER Moises Garzon MD POINT OF CARE TEST ORDER ANNE-MARIE Final Result * (ABNORMAL) TSH (03/15/2025 11:16 AM CDT) TSH 6.13(H) 0.27 - 4.20 uIU/mL [facility] Blood 03/15/2025 11:1 6 AM CDT 03/15/2025 11:32 AM CDT Moises Garzon MD LAB BLOOD ORDERABLES Fin al Result [facility] [id number] [id number] * (ABNORMAL) Basic metabolic panel (09/01/2022 11:11 AM MATERIALS SCHEDULER) Glucose 66(L) 70 - 99 mg/dL [facility] - 01 BUN 18 8 - 27 mg/dL [facility] - 01 Creatinine, Serum 1.16(H) 0.57 - 1.00 mg/dL [facility] - 01 eGFR 49(L) >59 mL/min/1.7 3 [facility] - 01 BUN/creat ratio 16 12 - 28 [facility] - 01 Sodium 145(H) 134 - 144 mmol/L [facility] - 01 Potassium, sr 3.8 3.5 - 5.2 mmol/L [facility] - 01 Chloride 107(H) 96 - 106 mmol/L [facility] - 01 CO2 25 20 - 29 mmol/L [facility] - 01 Calcium 9.3 8.7 - 10.3 mg/dL [facility] - 01 09/01/2022 11:1 1 AM MATERIALS SCHEDULER 09/01/2022 Narrative [facility] - 09/02/2022 4:08 AM MATERIALS SCHEDULER Performed at: 01 - [facility] [id number] Diesel Bus Mechanic: Raul Quintanilla PhD, Phone: [phone] us AnnalisaRoberto Moody LAB BLOOD ORDERABLES Final Re sult [facility] - 01 * POCT lipid panel (07/10/2022 3:22 PM MATERIALS SCHEDULER) HDL, POC 51 mg/dL Triglycerides, POC 126 mg/dL LDL Cholesterol POC 73 mg/dL Chol/HDL Ratio, POC 2.9 Non-HDL Cholesterol, POC 98 mg/dL Cholesterol Total, POC 149 mg/dL Capillary blood 07/10/2022 3 :22 PM MATERIALS SCHEDULER Gabriella Gale NP POINT OF CARE TEST ORDER ANNE-MARIE Final Result from Last 3 Months or Most Recently Relevant to Health Maintenance Insurance MEDICARE [place] [address] MEDICARE RAILROAD [employer] SENIOR SUPPLEMENT MEDICARE RAILROAD [employer] SENIOR SUPPLEMENT Care Teams 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
--- OUTSIDE RECORDS SUMMARY | 2025-06-30 15:43 | XMS_ITS | Clinical Summary ---
Author Organization [facility] Address [address] [place] [address] Care Team Providers Care Pole Peeler Name Role Phone Brennan Gusman MD Primary Care Provider [phone] Allergies Active Allergy Reactions Criticality Noted Date Comments Vancomycin Swelling High 08/24/2022 Medications fludrocortison e (FLORINEF) 0.1 MG tablet Take 1 tablet (0.1 mg total) by mouth daily. Active Cholecalcifero l 50 MCG (2000 UT) Tab Take 4,000 Units by mouth daily. Active loperamide (IMODIUM A-D) 2 MG tablet Take 1 tablet (2 mg total) by mouth as needed for Diarrhea. Active Probiotic Product (Psonar) Cap Take 1 capsule by mouth daily. Active metoclopramide (REGLAN) 10 MG tablet Take 1 tablet (10 mg total) by mouth 3 (three) times daily as needed (nausea). Active insulin lispro (HUMALOG) 100 UNIT/ML patient supplied PUMP Inject into the skin continuous. Basal rate (17.5 units/day): [id number] [id number] Carb ratio: 1 unit per 10 g CHO ISF: 1 unit per 50 mg/dl Active psyllium (METAMUCIL 4 IN 1 FIBER) 51.7 % packet Take 1 packet by mouth 2 (two) times daily. Active FIBER ADULT GUMMIES OR Take 1 chewable tablet by mouth daily. Active senna-docusate (SENOKOT-S) 8.6-50 MG tablet Take 1 tablet by mouth nightly at bedtime. 60 tablet 4 Active insulin glargine (LANTUS) 100 UNIT/ML injection (VIAL) Inject 10 Units into the skin 2 (two) times daily. 3 Active BAQSIMI ONE PACK 3 MG/DOSE Powder 3 mg by Nasal route. Only as need 3 Active triamcinolone (KENALOG) 0.1 % cream every 12 (twelve) hours. Active midodrine (PROAMATINE) 5 MG tablet every 12 (twelve) hours. Active famotidine (PEPCID) 20 MG tablet 5 Active HYDROcodone-ac etaminophen (NORCO) 5-325 MG tablet TAKE 1 TABLET BY MOUTH DAILY NEEDED 1 HOUR PRIOR TO PHYSICAL THERAPY 5 Active ipratropium (ATROVENT) 0.03 % nasal spray USE 1 SPRAY IN EACH NOSTRIL THREE TIMES DAILY BEFORE MEALS NEEDED 5 Active potassium chloride CR (KLOR-CON M) 20 MEQ tablet Take 1 tablet (20 mEq total) by mouth daily. 5 Active PROLIA 60 MG/ML injection INJECT SUBCUTANEOUSLY ONCE EVERY 6 MONTHS 5 Active esomeprazole (NEXIUM) 40 MG capsule Take 1 capsule (40 mg total) by mouth daily. 5 Active omeprazole (PRILOSEC) 20 MG capsule 5 Active Active Problems Problem Noted Date Diagnosed Date Primary osteoarthritis of left shoulder 05/04/20 25 Type 1 diabetes mellitus without complication Low back pain at multiple sites 10/26/2024 Primary osteoarthritis, left shoulder 03/16/2024 Assessment & Plan (02/13/2025 2:08 PM CDT): Recommendation at this time, we went over the risks and benefits, as well as the alternatives. She also has a history of diabetes, but her hemoglobin A1c for the last few years has never been above 7. However, her last steroid injection did cause hyperglycemia for about three weeks, so she's somewhat leery about having a repeat steroid injection. We'll try getting her set up with Dr. Irwin for a referral for possible total joint arthroplasty. We'll see her back as needed. Assessment & Plan (06/13/2024 4:42 PM ACTING PROFESSOR): Recommendation at this time, we went over the risk and benefits as well as the alternatives. She did well with her conservative treatment. She would like to continue with another steroid shot and continue her exercises to hopefully improve her range of motion. She states she's functional where she's at. Does not want to proceed with any type of surgical intervention. A steroid was injected, tolerated well. We'll see her back in three months. Vertigo 11/20/2023 Adhesive capsulitis of left shoulder 11/20/2023 Assessment & Plan (03/15/2024 6:22 PM CDT): Recommendation at this time, went over the risk of benefits as well as the alternative. She's a type 1 diabetic also, so she'd like to avoid any type of surgical intervention. She does realize that if I do a steroid shot today, her sugars will elevate for a day or two. All questions are answered. We're going to set up for a steroid shot to her left shoulder. Closed right hip fracture, initial encounter Closed left hip fracture, initial encounter 08/27 DKA (diabetic ketoacidosis) 08/24/2022 Encounters Date Type Department Care Team Description 05/09/2025 Telephone [facility] - [place] [address] [place] [address] Rai Irwin MD Question 05/04/2025 1:00 PM CDT Office Visit [facility] [address] [place] [address] Rai Irwin MD New Patient (Left shoulder ) 05/04/2025 Scan [employer] INFO SRVCS Scanned, [facility] 05/04/2025 Travel 05/03/2025 Orders Only [facility] [address] [place] [place] [address] Rai Irwin MD from Last 3 Months Family History Medical History Relation Comments Cancer Father Heart Disease Father Hyperlipidemia Father Hypertension Father Cancer Mother Relation Status Comments Father Mother Social History Tobacco Use Types Packs/Day Years Used Date Smoking Tobacco: Never Smokeless Tobacco: Never Tobacco Cessation:Counseling Given: No Alcohol Use Standard Drinks/Week Comments Yes 0 (1 standard drink = 0.6 oz pur e alcohol) rarely [facility] Utilities Answer Date Recorded In the past 12 months has e electric, gas, oil, or water company threatened to shut off services in your home? No 09/15/2023 Humiliation, Afraid, Rape, and Kick questionnair e Answer Date Recorded Within the last year, have y ou been afraid of your partner or ex-partner? No 09/15/2023 Within the last year, have y ou been humiliated or emotionally abused in other ways by your partner or ex-partner? No Within the last year, have y ou been kicked, hit, slapped, or otherwise physically hurt by your partner or ex-partner? No 09/15/2023 Within the last year, have y ou been raped or forced to have any kind of sexual activity by your partner or ex-partner? No 09/15/2023 Social Connection and Isolation Panel Answer Date Recorded In a typical week, how many times do you talk on the phone with family, friends, or neighbors? More than three times a week 09/14/2023 How often do you get togethe r with friends or relatives? Once a week 09/14/2023 How often do you attend chur or congregational services? Never 09/14/2023 Do you belong to any clubs o r organizations such as protestant groups, unions, fraternal or athletic groups, or school groups? Yes 09/14/2023 How often do you attend meet ings of the clubs or organizations you belong to? More than 4 times per year 09/14/2023 Are you , , di vorced, , never , or living with a partner? 09/14/2023 AUDIT-C Answer Date Recorded Q1: How often do you have a drink containing alc ohol? Monthly or less 09/14/2023 Q2: How many drinks containi ng alcohol do you have on a typical day when you are drinking? 1 or 2 09/14/2023 Q3: How often do you have si x or more drinks on one occasion? Never 09/14/2023 Overall Financial Resource Strain (CARDIA) Answe r Date Recorded How hard is it for you to pa y for the very basics like food, housing, medical care, and heating? Not very hard 09/15/2023 PHQ-2 Answer Date Recorded Patient Health Questionnaire-2 Score 0 10/24/2024 [facility] - Occupational Stress Questionnaire Answer Date Recorded Do you feel stress - tense, restless, nervous, or anxious, or unable to sleep at night because your mind is troubled all the time - these days? Not at all 09/14/2023 Exercise Vital Sign Answer Date Recorde d On average, how many days pe r week do you engage in moderate to strenuous exercise (like a brisk walk)? 0 days 09/14/2023 On average, how many minutes do you engage in exercise at this level? 0 min 09/14/2023 Hunger Vital Sign Answer Date Recorded Within the past 12 months, y ou worried that your food would run out before you got the money to buy more. Never true 09/15/19 24 Within the past 12 months, t he food you bought just didn't last and you didn't have money to get more. Never true 09/15/2023 PRAPARE - Transportation Answer Date Re corded In the past 12 months, has l ack of transportation kept you from medical appointments or from getting medications? Yes 08/28 In the past 12 months, has l ack of transportation kept you from meetings, work, or from getting things needed for daily living? Yes 09/15/2023 Housing Stability Vital Sign Answer Chaitanya e Recorded In the last 12 months, was t here a time when you were not able to pay the mortgage or rent on time? No 09/15/2023 In the last 12 months, how many places have you lived? 1 09/15/2023 In the last 12 months, was t here a time when you did not have a steady place to sleep or slept in a care home (including now)? No 09/15/2023 Comments No Sex and Gender Information Value Date Recorded Sex Assigned at Female 10/24/2024 12:36 PM CDT Legal Sex Female 9:08 PM ACTING PROFESSOR Gender Identity Female 10/24/2024 12:36 PM CDT Sexual Orientation Straight 10/24/2024 12 :36 PM CDT Last Filed Vital Signs Vital Sign Reading Time Taken Comments Blood Pressure 166/81 05/04/2025 1:30 PM CDT Pulse 72 05/04/2025 1:30 PM CDT Temperature 36.9 C (98.5 F) 05/04/2025 12:52 PM CDT Respiratory Rate 18 09/21/2023 11:50 AM ACTING PROFESSOR Oxygen Saturation 96% 02/13/2025 11:12 AM CDT Inhaled Oxygen Concentration - - Weight 71.2 kg (157 lb) 05/04/2025 12:52 PM CDT Height 160 cm (5' 3) 05/04/2025 12:52 PM CDT Body Mass Index 27.81 05/04/2025 12:52 PM CDT Plan of Treatment Health Maintenance Due Date Last Done Comments Kidney Health Evaluation 1945 Diabetes: Retinopathy Eye Exam 1964 Hepatitis C 1964 DTaP, Tdap and Td Vaccines (1 - Tdap) 1965 Zoster Vaccines (1 of 2) 1996 Annual Medicare Wellness Visit 12/25/2011 Pneumococcal Vaccine: 50+ Years (2 of 2 - PPSV23, PCV20, or PCV21) 08/24/2014 06/29/2014 RSV Immunization or 60+ Years (1 - 1-dose 75+ series) 2021 Hemoglobin A1C 03/17/2024 09/17/2023, 01/19/2023 Lipid Panel 09/16/2024 09/16/2023, 07/10/2022 COVID-19 Vaccine (2 - season) 2025 10/02/2020 Influenza Adult (#1) 2025 05/21/2022, 09/20/2015, 09/05/2015, Additional history exists Dexa Scan (General) Completed 01/29/2018, 8 PHQ-2 (Physician [place]) Completed 10/24/2024 Hepatitis A Vaccines Aged Out No long er eligible based on patient's age to complete this topic Meningococcal B Vaccine Aged Out No l onger eligible based on patient's age to complete this topic Meningococcal Vaccine Aged Out No tayo sae eligible based on patient's age to complete this topic RSV Immunizations Under 20 Months Aged Out No longer eligible based on patient's age to complete this topic Medical Devices Implanted Type Area Tree Feller Device Identifier Shelf Expiration Date Model / Serial / Lot Nail Synthes Tfna Ti Christiano 11 X 170mm 130 Deg - [id number] Implanted:Qty: 1 on 09/17/2023 by Brennan Hayes MD at [facility] Nail Left: Hip SYNTHES 01/24/2032 [id number] S / / [id number] Screw Synthes 3.5 Cannulated Tfn 90mm - [id number] Implanted:Qty: 1 on 09/17/2023 by Brennan Hayes MD at [facility] Screw Left: Femur SYNTHES [id number] 01/24/2032 [id number] S / / [id number] Screw Synthes 5.0 Ti Locking Stardrive 34mm - [id number] Implanted:Qty: 1 on 09/17/2023 by Brennan Hayes MD at [facility] Screw Left: Femur SYNTHES 02/24/2032 [id number] S / / [id number] Explanted Type Area Tree Feller Device Identifier Shelf Expiration Date Model / Serial / Lot Drill Bit Synthes 4.2mm Qc Three-Fluted 330mm/100mm Calibration - [id number] Explanted:Qty: 1 on 09/17/2023 by Brennan Hayes MD at [facility] Drill Left: Hip SYNTHES 03.010.061S / / Procedures Procedure Name Priority Date/Time Associated Diagnosis Comments OXR LT SHOULDER 3V Routine 05/04/2025 12 :56 PM CDT Left shoulder pain, unspecified chronicity HEMOGLOBIN, GLYCOSYLATED Routine 09/17/2023 4:41 AM ACTING PROFESSOR LIPID PANEL Routine 09/16/2023 3:55 AM ACTING PROFESSOR from Last 3 Months or Most Recently Relevant to Health Maintenance Results * OXR LT SHOULDER 3V (05/04/2025 12:56 PM CDT) Anatomical Region Laterality Modality Radiographic Indira ging Narrative 05/04/2025 1:06 PM CDT PROCEDURE: OXR LT SHOULDER 3V VIEWS: 3 DATE: 05/04/25 COMPARISONS: None CLINICAL INDICATION: FINDINGS: Severe glenohumeral osteoarthritic changes, type III acromion, osseous loose body in the subacromial space. No acute findings. IMPRESSION: Severe shoulder arthritis. us Rai Irwin MD GENERAL IMAGING Final Result * (ABNORMAL) HEMOGLOBIN, GLYCOSYLATED (09/17/2023 4:41 AM ACTING PROFESSOR) HGB A1C 6.8(H) <5.7 % 09/17/2023 11:47 AM ACTING PROFESSOR [facility] Comment: ADA GUIDELINES 2010 5.7 TO 6.4% INCREASED RISK OF DIABETES > OR = 6.5% CONSISTENT WITH DIABETES ESTIMATED AVG GLUCOSE 148 mg/dL 09/17/2023 11:47 AM ACTING PROFESSOR [facility] 09/17/2023 4:41 AM ACTING PROFESSOR Shabbir Galicia DO LABORATORY Final Result [facility] [address] [place] [address], [place] [phone] * LIPID PANEL (09/16/2023 3:55 AM ACTING PROFESSOR) CHOLESTEROL 81 <200 MG/DL 09/16/2023 5:26 AM ACTING PROFESSOR [facility] TRIGLYCERIDES 82 <150 MG/DL 09/16/2023 5:26 AM ACTING PROFESSOR [facility] HDL 50 >40.0 MG/DL 09/16/2023 5:26 AM ACTING PROFESSOR [facility] LDL (CALCULATED) 15 <100 MG/DL 09/16/19 5:26 AM ACTING PROFESSOR [facility] NON HDL CHOLESTEROL 31 <130 MG/DL 09/16 5:26 AM [facility] CHOL/HDL RATIO 1.6 0.0 - 4.5 09/16/2023 5:26 AM [facility] VLDL CALCULATION 16 5 - 55 MG/DL 09/16/2023 5:26 AM [facility] LIPID INTERPRETATION 09/16/2023 5:26 AM [facility] Comment: NIH CONCENSUS REPORT RECOMMENDATIONS: ADULT CHILD LOW RISK: CHOLESTEROL <200 <170 TRIGLYCERIDE <150 --- HDL >=60 --- LDL <100 <110 BORDERLINE: CHOLESTEROL 200-239 170-199 TRIGLYCERIDE 150-199 --- HDL 40-59 --- LDL 100-159 110-129 HIGH RISK: CHOLESTEROL >=240 >=200 TRIGLYCERIDE >=200 --- HDL <40 --- LDL >=160 >=130 09/16/2023 3:55 AM ACTING PROFESSOR us Daryl Villegas MD LABORATORY Final Resu lt [facility] [address] [place] [id number], from Last 3 Months or Most Recently Relevant to Health Maintenance Insurance [place] MEDICARE A[employer] Advance Directives Documents on File Type Date Recorded Patient Guzzler Builder Expl anation Advance Directives and Livin g Will 09/25/2023 9:30 AM 02/26/2022 * Full Code (Latest Code Status on File) Date Activated Date Inactivated Comments 09/15/2023 3:41 PM 09/21/2023 7:05 PM * Full Code Date Activated Date Inactivated Comments 09/15/2023 3:02 PM 09/15/2023 3:41 PM * Full Code Date Activated Date Inactivated Comments 09/14/2023 3:48 PM 09/15/2023 1:53 PM * Full Code Date Activated Date Inactivated Comments 08/24/2022 4:22 PM 08/26/2022 1:55 PM Care Teams Pole Peeler Relationship Specialty Start Date End Date Brennan Gusman MD [address] [address] PCP - General INTERNAL MEDICINE 08/24/22
--- OUTSIDE RECORDS SUMMARY | 2025-06-30 15:43 | XMS_ITS | Clinical Summary ---
Author Organization [facility] Address [address] [place] [address] Care Team Providers Care Aluminum Molding Machine Operator Name Role Phone Brennan Gusman MD Primary Care Provider Source Comments [facility],non-owned Affiliates and Associated Physician Practices is amultiple site organization consisting of ambulatory clinics and hospital sitesin [place], [place], [place] and [place]. This disclosure is being madepursuant to the Care Everywhere program and may not contain all information available regarding this patient. Last updated 18.[facility] Active Problems Problem Noted Date Diagnosed Date Other injury of unspecified body region, subsequent encounter 08/09/2012 Type 2 diabetes mellitus without complications 1 08/08/2011 Overview (04/26/2025): IMO 10/26/2024 IMO 04/26/2025 Chronic or unspecified pepti c ulcer, site unspecified, with hemorrhage 02/23/2012 Essential (primary) hypertension 02/23/2012 Overview (10/26/2017): related when taking vancomycin Irritable bowel syndrome without diarrhea 2011 Gastro-esophageal reflux disease without esophag itis 02/23/2012 Social History Tobacco Use Types Packs/Day Years Used Date Smoking Tobacco: Never Smokeless Tobacco: Never Alcohol Use Standard Drinks/Week Comments Yes 0.8 (1 standard drink = 0.6 oz p ure alcohol) Comments Unknown Sex and Gender Information Value Date Recorded Sex Assigned at Not on file 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 Sex 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 Gender Identity Not on file Sexual Orientation Not on file Last Filed Vital Signs Vital Sign Reading Time Taken Comments Blood Pressure - - Pulse 76 11/08/2012 1:21 PM CDT Temperature 36.7 C (98.1 F) 11/08/2012 1:21 PM CDT Respiratory Rate 16 11/08/2012 1:21 PM CDT Oxygen Saturation - - Inhaled Oxygen Concentration - - Weight 74.8 kg (165 lb) 11/08/2012 1:21 PM CDT Height 157.5 cm (5' 2) 11/08/2012 1:21 PM CDT Body Mass Index 30.18 11/08/2012 1:21 PM CDT Plan of Treatment Health Maintenance Due Date Last Done Comments BONE DENSITY TESTING 1945 MEDICARE AWV 12 MONTHS 1945 HEPATITIS C SCREENING 12/19/1964 DTAP/TDAP/TD VACCINES (1 - Tdap) 1965 PNEUMOCOCCAL VACCINE 50+ (1 of 2 - PCV) 1965 ZOSTER VACCINE (1 of 2) 1996 Respiratory Syncytial Virus (RSV) Vaccine Pt: or over 60 yrs (1 - 1-dose 75+ series) 2021 DEPRESSION SCREENING 07/27/2024 COVID-19 VACCINE (1 - 2024-2 6 season) 2025 INFLUENZA VACCINE (#1) 2025 HEPATITIS B VACCINE Aged Out No longe r eligible based on patient's age to complete this topic HIB VACCINE Aged Out No longer eligi ble based on patient's age to complete this topic HPV VACCINE Aged Out No longer eligi ble based on patient's age to complete this topic MENINGOCOCCAL (Group B) VACC INE SHARED DECISION-MAKING Aged Out No longer eligibl e based on patient's age to complete this topic MENINGOCOCCAL GROUPS A/C/Y/W VACCINE Aged Out No longer eligible b ased on patient's age to complete this topic Insurance MEDICARE AETNA MEDICARE AETNA MEDICARE Member Subscriber Plan / Payer (Ef fective for All Dates) Name:Ja Gibson Member ID:[id number] Relation to Subscriber:Self Name:JA GIBSON Subscriber ID:[id number] Payer ID:Not on file Group ID:Not on file Type:Medicare Address: [place] [id number] [employer] MEDICARE Member Subscriber Plan / Payer (Ef fective for All Dates) Name:Ja Gibson Member ID:[id number] Relation to Subscriber:Self Name:KOMAL GIBSONGUADALUPE Dominguez Subscriber ID:[id number] Payer ID:Not on file Group ID:Not on file Type:Medicare Address: [place] [id number] AETNA MEDICARE AETNA MEDICARE AETNA MEDICARE AETNA MEDICARE AETNA Care Teams Aluminum Molding Machine Operator Relationship Specialty Start Date End Date Brennan Gusman MD [address] [id number] PCP - General 03/05/12
--- OUTSIDE RECORDS SUMMARY | 2025-06-30 15:43 | XMS_ITS | Encounter Summary ---
Author Organization [facility] Address [address] [place] [address] Care Team Providers Care Watch Train Inspector Name Role Phone Brennan Gusman MD Primary Care Provider [phone] Encounter Details Date Type Department Care Team (Late st Contact Info) Description 04/05/2023 Lab Requisition [facility] [address] [place] [address] Too Ramos MD [facility] [address] [place] [phone] Social History Tobacco Use Types Packs/Day Years Used Date Smoking Tobacco: Never Smokeless Tobacco: Never Alcohol Use Standard Drinks/Week Comments Yes 0.8 (1 standard drink = 0.6 oz p ure alcohol) Comments Unknown Sex and Gender Information Value Date Recorded Sex Assigned at Not on file Legal Sex Female 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
--- OUTSIDE RECORDS SUMMARY | 2025-06-30 15:43 | XMS_ITS | Clinical Summary ---
Author Organization [facility] Address [address], [facility] [address] [place] [address] Phone Care Team Providers Care Director Of Cardiology Service Line Name Role Phone Brennan Gusman MD Primary Care Provider [phone] Tarik Gill DO Unavailable [phone] Allergies Active Allergy Reactions Criticality Noted Date Comments Vancomycin Hcl Swelling,Other (see Comments) High blood pressure Busted vessels in the eye Medications Probiotic Product (Mediamorph ADULT PROBIOTIC) Capsule Active insulin lispro (HUMALOG) 100 UNIT/ML Solution 5 units sq ac Active Loperamide HCl (IMODIUM A-D) 2 MG Tablet daily. Active insulin glargine (LANTUS) 100 UNIT/ML Solution 40 Units by Subcutaneous route every morning. Active metoclopramide (REGLAN) 10 MG Tablet Take 10 mg by mouth 2 times daily. Active Probiotic Product (GoodRx) Capsule daily. Acti ve Aspirin 81 MG Tablet daily. Active meclizine (ANTIVERT) 25 MG Tablet 4 times daily. Activ e omeprazole (PRILOSEC) 20 MG CAPSULE DELAYED RELEASE Take 1 Cap by mouth 2 times daily. 60 Cap 6 8 Active omeprazole (PRILOSEC) 20 MG CAPSULE DELAYED RELEASE TAKE 1 CAPSULE BY MOUTH ONCE DAILY 90 Cap 3 9 Active famotidine (PEPCID) 20 MG Tablet Take 1 Tab by mouth 2 times daily. 90 Tab 0 Active Active Problems Problem Noted Date Diagnosed Date Gastroesophageal reflux disease without esophagi tis 12/04/2015 Hx of colonic polyps 12/04/2015 Chronic diarrhea 12/04/2015 Immunizations Immunization Administration Dates Next Due Influenza Vaccine greater than 3 yrs 09/05/2015 Family History Medical History Relation Name Comments Colon Cancer Mother age 70s Crohn's Disease Son Relation Name Status Comments Mother Son Social History Tobacco Use Types Packs/Day Years Used Date Smoking Tobacco: Never Smokeless Tobacco: Never Tobacco Cessation:Counseling Given: Yes Alcohol Use Standard Drinks/Week Comments No 0 (1 standard drink = 0.6 oz pur e alcohol) 10 beers per year Comments No Sex and Gender Information Value Date Recorded Sex Assigned at Not on file Legal Sex Female 7:17 PM CDT Gender Identity Not on file Sexual Orientation Not on file 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 Not on file Not on file Not on file Last Filed Vital Signs Vital Sign Reading Time Taken Comments Blood Pressure 118/74 01/12/2018 1:21 PM CDT Pulse 59 01/12/2018 1:21 PM CDT Temperature 36.6 C (97.8 F) 01/12/2018 1:21 PM CDT Respiratory Rate 16 01/12/2018 1:21 PM CDT Oxygen Saturation 97% 01/12/2018 1:21 PM CDT Inhaled Oxygen Concentration - - Weight 81.3 kg (179 lb 3.2 oz) 01/12/2018 1:21 P M CDT Height 160 cm (5' 3) 01/12/2018 1:21 PM CDT Body Mass Index 31.74 01/12/2018 1:21 PM CDT Plan of Treatment Health Maintenance Due Date Last Done Comments Hepatitis C Virus (HCV) Screening 1945 TdaP Immunization 1945 Zoster Immunization (1 of 2) 1996 Medicare Initial AWV G0438 12/25/2010 Pneumococcal Immunization (50+ years) (2 of 2 - PCV20 or PCV21) 06/29/2015 06/29/2014 Respiratory Syncytial Virus (RSV) Immunization (Adult) (1 - 1-dose 75+ series) 2021 Influenza Immunization (#1) 2025 02/2 11/2015, 09/05/2015, 06/29/2014, Additional history exists SARS-COV-2 Immunization (2024- season) 2025 Pneumococcal Immunization Combined Discontinued 06/29/2014 Colonoscopy Discontinued 05/22/2016, 02/04/2012 Colorectal Cancer Screening Discontinued DEXA Bone Density Discontinued 01/29/2018 Cologuard Discontinued Hepatitis B Immunization Aged Out No longer eligible based on patient's age to complete this topic Human Papillomavirus (HPV) Immunization Aged Out No longer eligible based on patient's age to complete this topic Immunochemical Fecal Occult Blood Discontinued Meningococcal Immunization (ACWY) Aged Out No longer eligible based on patient's age to complete this topic Rotavirus Immunization Aged Out No lo nger eligible based on patient's age to complete this topic Procedures Procedure Name Priority Date/Time Associated Diagnosis Comments [facility] BONE DENSITOMETRY AXIAL SKELETON Routine 01/29/2018 Gastroesophageal reflux disease without esophagitis High risk medication use Post-menopausal COLONOSCOPY Routine 05/22/2016 from Last 3 Months or Most Recently Relevant to Health Maintenance Results * [facility] BONE DENSITOMETRY AXIAL SKELETON (01/29/2018) Anatomical Region Laterality Modality BODY N/A Other Rehana Maldonado APRN, [employer] S[employer]IOR OFFICER IMG DEXA ORDERABL ES Final Result * COLONOSCOPY (05/22/2016) Brennan Gusman MD PROCEDURE/MINOR SURGICAL ORDER ANNE-MARIE Final Result from Last 3 Months or Most Recently Relevant to Health Maintenance Insurance [employer] SENIOR [employer]MENTAL MEDICARE RAILROAD Care Teams Director Of Cardiology Service Line Relationship Specialty Start Date End Date Brennan Gusman MD [address] [facility] [address] [place] [address] PCP - General Internal Medicine 07/31/15 Tarik Gill DO [address] [facility] [address] [place] [address] Gastroenterology 05/23/16
--- OUTSIDE RECORDS SUMMARY | 2025-06-30 15:43 | XMS_ITS | Encounter Summary ---
Author Organization [facility] Address [address] [place] [address] Care Team Providers Care Machine Sprayer Name Role Phone Brennan Gusman MD Primary Care Provider [phone] Encounter Details Date Type Department Care Team (Late st Contact Info) Description 04/02/2023 Lab Requisition [facility] - DermPath Lab [address] [place] [id number] Ginny Ramos, DIFFUSION FURNACE OPERATOR-YARD PILOT [facility] DERMAT[facility] [address] [place] [phone] Neoplasm of uncertain behavior of skin Social History Tobacco Use Types Packs/Day Years Used Date Smoking Tobacco: Never Smokeless Tobacco: Never Alcohol Use Standard Drinks/Week Comments Yes 0.8 (1 standard drink = 0.6 oz p ure alcohol) Comments Unknown Sex and Gender Information Value Date Recorded Sex Assigned at Not on file Legal Sex Female 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 Gender Identity Not on file Sexual Orientation Not on file documented as of this encounter Plan of Treatment Not on file documented as of this encounter Procedures Procedure Name Priority Date/Time Associated Diagnosis Comments DERMATOPATHOLOGY Routine 04/02/2023 12:0 0 AM CDT Neoplasm of uncertain behavior of skin documented in this encounter Results * DERMATOPATHOLOGY (04/02/2023 12:00 AM CDT) Case Report Dermatopathology Report Case: [id number] Authorizing Provider: Ginny Ramos, Collected: 04/02/2023 12:00 AM DIFFUSION FURNACE OPERATOR-YARD PILOT Ordering Location: [facility] DermPath Lab Received: 04/06/2023 07:57 AM Pathologist: Mel Stein MD Specimen: Skin, mid chest 3:16 PM CDT DERMATOPATHOLOGY LABORATORY Final Diagnosis Specimen A. SKIN, mid chest: BENIGN VERRUCOUS KERATOSIS, INFLAMED (L82.1) 3:16 PM CDT DERMATOPATHOLOGY LABORATORY at 1516 CDT Clinical History SCC vs VV vs ISK 3:16 PM CDT DERMATOPATHOLOGY LABORATORY Gross Description Specimen A: Received is one formalin filled container labeled with the patient's name and designated mid chest. The specimen consists of a shave biopsy measuring 4x6x3 mm. Jar 0. 3:16 PM CDT DERMATOPATHOLOGY LABORATORY Microscopic Description Specimen A. SKIN, mid chest: Sections show hyperkeratosis, papillomatosis, hypergranulosis, and acanthosis. Inflammatory cells are present within the dermis. These histological findings can be seen in a verruca vulgaris or a seborrheic keratosis. 3:16 PM CDT DERMATOPATHOLOGY LABORATORY Disclaimer An external and internal positive and negative controls are appropriate for the histochemical, immunohistochemical and immunofluorescence stain(s) in this case (if any), except where stated explicitly. The performance characteristics of the stain(s) cited in this report were developed and its performance characteristic determined by the Dermatopathology Laboratory at [facility], directed by Dr. Marky Estrella. These tests need not be, and therefore are not, approved by the [place] Food and Drug Administration. The tests are used for clinical purposes. Billing Codes Specimen Charges Stain Charges 01586 1 3:16 PM CDT DERMATOPATHOLOGY LABORATORY Embedded Images 3:16 PM CDT DERMATOPATHOLOGY LABORATORY Pathology/Cytolog y TISSUE SPECIMEN FROM SKIN / Unknown 04/02/2023 04/06/2023 7:57 AM CDT Ginny Ramos DIFFUSION FURNACE OPERATOR-YARD PILOT LAB - PATHOLOGY/CY TOLOGY ORDERABLES Final Result DERMATOPATHOLOGY LABORATORY [facility] - Department of Dermatology [facility] Medicine [address] [place] [address], [address] [phone] documented in this encounter Visit Diagnoses Diagnosis Neoplasm of uncertain behavior of skin documented in this encounter Care Teams Machine Sprayer Relationship Specialty Start Date End Date Brennan Gusman MD [address] [facility] [address] [place] [phone] PCP - General 03/05/12 documented as of this encounter
== END 2025-06-30 15:23 | disposition home or self-care (01) ==
PROVIDERS: PCP Internal Medicine; Visit Provider Internal Medicine
DX: I65.23 Occlusion and stenosis of bilateral carotid arteries (principal); R42 Dizziness and giddiness
CPT/HCPCS: 93880